=== PATIENT | female | born 1935 | race African-American/Black ===

== ENCOUNTER → 2016-08-18 | Outpatient (CLI) | payer OTHER ==
[2014-12-22 11:00] VITALS: BP 121/57
[~2016-08-18] MED LIST: ALPR0.5T PO; ASPI-482 PO; ASPI-612 PO; CARV12.52 PO; CARV6.252 PO; ESCITALOPRAM OX20 MG PO; FERR-26 PO; FURO-68 PO; FURO40TA4 PO; LEXAPRO10 MG PO; LOSA50TA6 PO; METO10TA81 PO; PANT40TA5 PO; PHEN95TA13 PO; POLY17PO29 PO; POTA20PA PO; POTA20TA12 PO; PSYL1PAC7 PO; SIMV20TA PO; SIMV20TA3 PO; TRAM1TAB4 PO; VIT1TABL71 PO
--- NOTE | 2016-08-18 11:15 | RAD ---
Abdominal ultrasound 08/18/2016 Indication: Abdominal pain. Excessive gas. Comparison study: None. Discussion: Ultrasound evaluation of the abdomen was performed. Static images were submitted to PACS. The pancreas is poorly visualized. Visualized portions of the pancreas are unremarkable. Visualized portions of the aorta and IVC are grossly unremarkable. Liver is normal in size measuring 12 cm longitudinally. No focal hepatic lesions are seen. Liver appears mildly diffusely echogenic likely reflecting some degree of hepatic steatosis. No evidence of intrahepatic biliary dilatation is seen. Shadowing stones are seen in the dependent portion of the gallbladder neck. Common bile duct is nondilated measuring 4 mm. No gallbladder wall thickening is identified. No pericholecystic fluid is seen. Right kidney is atrophic in appearance measuring 8.2 cm in length. Renal cortical thinning is noted. Right kidney is otherwise grossly unremarkable. Spleen is poorly visualized measures approximately 8 cm in length. There is a 1.2 cm cyst in the lateral aspect of the left kidney. Left kidney is otherwise normal in appearance measuring 10 cm in length. Impression: 1.Cholelithiasis without evidence of acute cholecystitis. 2. Probable hepatic steatosis. 3.Atrophic appearance of the right kidney.
== END | disposition home or self-care (01) ==
LOC: US 10:23
PROVIDERS: ATTEND Internal Medicine
DX: R10.84 Generalized abdominal pain (principal); R14.0 Abdominal distension (gaseous)
CPT/HCPCS: 76700

== ENCOUNTER → 2016-12-24 | Outpatient (CLI) | payer OTHER ==
[2016-10-29 15:00] VITALS: BP 112/51
[~2016-12-24] MED LIST changes: +HYDR-2758 PO; +HYDR-971 PO; +VENL75CA6 PO
--- NOTE | 2016-12-24 12:58 | RAD ---
Chest radiograph Two Views 12/24/2016 Clinical indication: Shortness of breath Comparison: Chest x-ray 12/21/2014 Findings: Prior median sternotomy and CABG. Cardiac and mediastinal silhouettes are within normal limits. There is stable mild scarring in the left lung base. No pleural effusion, pneumothorax or focal consolidation. There is multilevel thoracic spondylosis. Impression: Scattered areas of pleural-parenchymal scarring with no acute cardiopulmonary abnormality.
== END | disposition home or self-care (01) ==
LOC: RAD 10:42
PROVIDERS: ATTEND Nurse Practitioner Adult Health
DX: M47.894 Other spondylosis, thoracic region (principal); J98.4 Other disorders of lung
CPT/HCPCS: 71020

== ENCOUNTER 2016-12-25 15:44 | Inpatient (IN) | payer OTHER ==
[~2016-12-25] VITALS: Ht 170.2 cm; Wt 72.1 kg
[2016-12-25] MEDS ORDERED: IV NORMAL SALINE 1000ML BAG 1,000 ML IV SCH (16:09)
[2016-12-25 16:19] LABS: BASO # 0.1 x10^3/uL (0.0-0.2); BASO % 0 % (0-3); EOS % 0 % (0-3); HEMATOCRIT 40.4 % (36.0-47.0); HEMOGLOBIN 12.8 g/dL (12.0-15.5); LYMPH # 2.3 x10^3/uL (1.0-4.8); LYMPH % 15 % (24-48); MEAN CORPUSCULAR HEMOGLOBIN 29 pg (25-35); MEAN CORPUSCULAR HGB CONC 32 g/dL (31-37); MEAN CORPUSCULAR VOLUME 92 fL (79-100); MONO % 7 % (0-9); NEUT % 77 % (31-73); PLATELET COUNT 555 x10^3/uL (140-400); RED CELL DISTRIBUTION WIDTH 14.4 % (11.5-14.5); WHITE BLOOD COUNT 15.1 x10^3/uL (4.0-11.0)
[2016-12-25 16:32] LABS: CREATININE 3.1 mg/dL (0.6-1.0); GFR 17.4; POTASSIUM 3.2 mmol/L (3.5-5.1)
[2016-12-25 16:40] LABS: % EOS 1 % (0-5); ALBUMIN 3.4 g/dL (3.4-5.0); NUCLEATED RBC 2; PLT ESTIMATE INCREASED (ADEQUATE); TOTAL BILIRUBIN 0.3 mg/dL (0.2-1.0); TOTAL PROTEIN 6.8 g/dL (6.4-8.2)
[2016-12-25 16:42] LABS: ANISOCYTOSIS SLIGHT; POIKILOCYTOSIS SLIGHT; POLYCHROMASIA PRESENT
[2016-12-25 16:43] LABS: HOWELL-JOLLY BODIES PRESENT; OVALOCYTES PRESENT
[2016-12-25 16:44] LABS: SCHISTOCYTES OCC
--- NOTE | 2016-12-25 16:45 | PHYS DOC ---
Past Medical History Past Medical History: Cancer, CHF, Depression, DVT, Hypertension, [place], UTI Additional Past Medical Histor: PANCREATIC CANCER, METS TO LUNGS Past Surgical History: Coronary Bypass Surgery, Hysterectomy Additional Past Surgical Histo: left BKA Alcohol Use: None Drug Use: None Adult General Chief Complaint Chief Complaint: SHORTNESS OF BREATH HPI HPI 81-year-old female with a history of pancreatic cancer recent chemotherapy on December 09 now presents to the emergency department referred from her oncologist office after diagnosis of pulmonary embolus him. Patient had tachypnea and since she is at high risk for clot but has renal insufficiency, VQ scan was done orchestrated by oncology. This result was high probability for PE so patient was referred to the emergency department by Dr. Randle for evaluation treatment and admission. They felt that given the patient's immune compromised status and the fact that she was symptomatic from the PE inpatient treatment and anticoagulation was appropriate. Patient has no pain currently and states she only feels mildly short of breath with exertion and ambulation. No productive cough or fever. Denies chest pain. Review of Systems Review of Systems Constitutional: Denies fever or chills [] Eyes: Denies change in visual acuity, redness, or eye pain [] HENT: Denies nasal congestion or sore throat [] Respiratory: Denies cough or shortness of breath [] Cardiovascular: No additional information not addressed in HPI [] GI: Denies abdominal pain, nausea, vomiting, bloody stools or diarrhea [] : Denies dysuria or hematuria [] Musculoskeletal: Denies back pain or joint pain [] Integument: Denies rash or skin lesions [] Neurologic: Denies headache, focal weakness or sensory changes [] Endocrine: Denies polyuria or polydipsia [] All other systems were reviewed and found to be within normal limits, except as documented in this note. Current Medications Current Medications Current Medications Medications (Trade) Dose Ordered Sig/Zoya Start Time Stop Time Status Last Admin Dose Admin Sodium Chloride 1,000 ml @ 125 mls/hr Q8H 12/25/16 17:18 12/26/16 17:17 Allergies Allergies Allergies Coded Allergies Type Severity Reaction Last Updated Verified Penicillins Allergy Intermediate ITCH 09/04/16 Yes Physical Exam Physical Exam Older female chronically weak appearing no acute distress alert communicative cooperative and appropriate cheerful appearing supple neck clear lungs regular rate and rhythm hemodynamically stable. No respiratory distress and a nonfocal neurologic exam. Remainder of exam is benign Constitutional: Well developed, well nourished, no acute distress, non-toxic appearance. [] HENT: Normocephalic, atraumatic, bilateral external ears normal, oropharynx moist, no oral exudates, nose normal. [] Eyes: PERRLA, EOMI, conjunctiva normal, no discharge. [] Neck: Normal range of motion, no tenderness, supple, no stridor. [] Cardiovascular:Heart rate regular rhythm, no murmur [] Lungs & Thorax: Bilateral breath sounds unremarkable except patient with very mild tachypnea. Respiratory rate between 16 and 20 on M.D. exam Abdomen: Bowel sounds normal, soft, no tenderness, no masses, no pulsatile masses. [] Skin: Warm, dry, no erythema, no rash. [] Back: No tenderness, no CVA tenderness. [] Extremities: No tenderness, no cyanosis, no clubbing, ROM intact, no edema. [] Neurologic: Alert and oriented X 3, normal motor function, normal sensory function, no focal deficits noted. [] Psychologic: Affect normal, judgement normal, mood normal. [] Current Patient Data Vital Signs Vital Signs Date Time Temp Pulse Resp B/P (MAP) Pulse Ox O2 Delivery O2 Flow Rate FiO2 12/25/16 16:59 88 18 129/64 (85) 97 Nasal Cannula 2.0 12/25/16 15:44 97.6 97.6 Lab Values Laboratory Tests Test 12/25/16 16:10 12/25/16 16:53 White Blood Count 15.1 x10^3/uL (4.0-11.0) H Red Blood Count 4.40 x10^6/uL (3.50-5.40) Hemoglobin 12.8 g/dL (12.0-15.5) Hematocrit 40.4 % (36.0-47.0) Mean Corpuscular Volume 92 fL (79-100) Mean Corpuscular Hemoglobin 29 pg (25-35) Mean Corpuscular Hemoglobin Concent 32 g/dL (31-37) Red Cell Distribution Width 14.4 % (11.5-14.5) Platelet Count 555 x10^3/uL (140-400) H Neutrophils (%) (Auto) 77 % (31-73) H Lymphocytes (%) (Auto) 15 % (24-48) L Monocytes (%) (Auto) 7 % (0-9) Eosinophils (%) (Auto) 0 % (0-3) Basophils (%) (Auto) 0 % (0-3) Neutrophils # (Auto) 11.6 x10^3uL (1.8-7.7) H Lymphocytes # (Auto) 2.3 x10^3/uL (1.0-4.8) Monocytes # (Auto) 1.1 x10^3/uL (0.0-1.1) Eosinophils # (Auto) 0.0 x10^3/uL (0.0-0.7) Basophils # (Auto) 0.1 x10^3/uL (0.0-0.2) Segmented Neutrophils % 72 % (35-66) H Band Neutrophils % 1 % (0-9) Lymphocytes % 12 % (24-48) L Atypical Lymphocytes % (Manual) 1 % (0-0) H Monocytes % 4 % (0-10) Eosinophils % 1 % (0-5) Metamyelocytes % 2 % (0-0) H Myelocytes % 7 % (0-0) H Nucleated Red Blood Cells 2 Platelet Estimate Increased (ADEQUATE) Large Platelets Present Polychromasia Present Poikilocytosis Slight Anisocytosis Slight Macrocytosis Slight Ovalocytes Present [place] Bodies Present Schistocytes Occ Sodium Level 138 mmol/L (136-145) Potassium Level 3.2 mmol/L (3.5-5.1) L Chloride Level 94 mmol/L (98-107) L Carbon Dioxide Level 29 mmol/L (21-32) Anion Gap 15 (6-14) H Blood Urea Nitrogen 30 mg/dL (7-20) H Creatinine 3.1 mg/dL (0.6-1.0) H Estimated GFR (Cockcroft-Gault) 17.4 BUN/Creatinine Ratio 10 (6-20) Glucose Level 223 mg/dL (70-99) H Calcium Level 7.0 mg/dL (8.5-10.1) L Total Bilirubin 0.3 mg/dL (0.2-1.0) Aspartate Amino Transferase (AST) 33 U/L (15-37) Alanine Aminotransferase (ALT) 44 U/L (14-59) Alkaline Phosphatase 358 U/L (46-116) H Troponin I Quantitative 0.097 ng/mL (0.000-0.055) Total Protein 6.8 g/dL (6.4-8.2) Albumin 3.4 g/dL (3.4-5.0) Albumin/Globulin Ratio 1.0 (1.0-1.7) Thyroid Stimulating Hormone (TSH) 1.878 uIU/mL (0.358-3.74) Prothrombin Time 15.3 SEC (11.7-14.0) H Prothrombin Time INR 1.3 (0.8-1.1) H PTT 24 SEC (24-38) Laboratory Tests 12/25/16 16:10 Laboratory Tests 12/25/16 16:10 EKG EKG EKG with normal sinus rhythm at 88 normal axis no STEMI interpreted by me[] Radiology/Procedures Radiology/Procedures Chest x-ray no acute disease interpreted by me[] Course & Med Decision Making Course & Med Decision Making Pertinent Labs and Imaging studies reviewed. (See chart for details) Cancer patient with a PE diagnosed a VQ scan. White blood cell count 15.1 however patient is afebrile without productive cough. BUN/creatinine 30 and 3.1. Troponin 0.097 however patient has no clinical evidence of acute coronary syndromes this is felt to be secondary to her renal insufficiency. Case discussed with Dr. Holly pace hospitalist on-call has where history and findings and agrees with inpatient omission his service. He will address anticoagulation. Patient stable on reevaluation prior to admission to the floor. Dragon Disclaimer Dragon Disclaimer This electronic medical record was generated, in whole or in part, using a voice recognition dictation system. Departure Departure Impression: Primary Impression: Pulmonary embolism Additional Impressions: Leukocytosis Renal insufficiency Elevated troponin Disposition: ADMITTED INPATIENT Admitting Physician: Holly Pace Condition: STABLE Referrals: TARA DON Jr, MD (PCP) Problem Qualifiers LAUREN HERNANDEZ MD Dec 25, 2016 16:45
[2016-12-25 17:11] LABS: INR 1.3 (0.8-1.1); PROTHROMBIN TIME PATIENT 15.3 SEC (11.7-14.0)
--- NOTE | 2016-12-25 17:29 | RAD ---
Portable chest, 12/25/2016: History: Shortness of breath Comparison is made to a study from 12/24/2016. There has been a previous median sternotomy. The heart size and pulmonary vascularity are normal. There is obscuration of the left lateral costophrenic angle compatible with minimal atelectasis/infiltrate. There may be a component of scarring. A calcified granuloma is present in the left. The right lung is clear. IMPRESSION: Probable minimal atelectasis/infiltrate in the lateral left base.
[2016-12-25] MEDS ORDERED: ONDANSETRON PF 4 MG/2 ML VIAL. IV PRN (17:30)
[2016-12-25] MEDS ORDERED: DEXTROSE 50% 25 GM / 50ML DISP.SYRIN. IV PRN (18:45)
[2016-12-25] MEDS ORDERED: POTASSIUM CHLORIDE 20 MEQ TABLET.ER. PO ONE (18:45)
[2016-12-25] MEDS ORDERED: HEPARIN for IV BOLUS 10,000 UNIT/10 ML VIAL. IV PRN ×2 (18:45)
[2016-12-25] MEDS ORDERED: POLYETHYLENE GLYCOL 3350 17 GM PACKET. PO PRN (18:45)
--- NOTE | 2016-12-25 18:47 | PDOC1 ---
History and Physical Date of Admission Date of Admission DATE: 12/25/16 TIME: 18:39 Identification/Chief Complaint Chief Complaint shortness of breath Problems: Source Source: Caregiver, Chart review, Patient History of Present Illness History of Present Illness pt was seen in Oncology clinic today by midlevel for Dr. Randle Pt has pancreatic cancer, started chemo last month, and is due for next round soon, and has been doing well today, worsening shortness of breath, pt reports just today, but her family reports worsened over the last few days. No worsening of pain, no swelling, no fever or chills, no fall or event VQ was done as outpatient before sent to ER, LLL filling defect, CXR done the day before was reported as clear, Past Medical History Cardiovascular: CAD, HTN GI: Constipation Heme/Onc: Cancer Hepatobiliary: No pertinent hx Psych: No pertinent hx Past Surgical History Past Surgical History: CABG, Other Family History Family History: Diabetes, Other Social History Smoke: No ALCOHOL: none Drugs: None Current Medications Current Medications Current Medications Sodium Chloride 1,000 ml @ 999 mls/hr Q1H1M IV Last administered on t 18:03; Start 12/25/16 at 16:09 Ondansetron HCl (Zofran) 4 mg PRN Q8HRS PRN IV NAUSEA/VOMITING; Start at 17:30; Stop 12/26/16 at 17:29 Sodium Chloride 1,000 ml @ 125 mls/hr Q8H IV ; Start 12/25/16 at 17:18; Stop 12/26/16 at 17:17 Active Scripts Active Hydrocodone-Apap 5-325 (Hydrocodone Bit/Acetaminophen) 1 Each Tablet 1-2 Tab PO PRN Q4HRS PRN Pierce 5-325 Tablet (Acetaminophen/Hydrocodone Bitart) 1 Each Tablet 1-2 Tab PO Q4-6HRS Reported Hydrocodone-Apap 5-325 (Hydrocodone Bit/Acetaminophen) 1 Each Tablet 2 Tab PO PRN Q4HRS PRN Venlafaxine Hcl Er (Venlafaxine Hcl) 75 Mg Cap.er.24h 1 Cap PO DAILY Lasix (Furosemide) 40 Mg Tablet 1 Tab PO DAILY Xanax (Alprazolam) 0.5 Mg Tablet 0.25 Mg PO HS PRN PRN Tramadol-Acetaminophn 37.5-325 (Tramadol Hcl/Acetaminophen) 1 Each Tablet 1 Tab PO Q6HRS Reglan (Metoclopramide Hcl) 10 Mg Tablet 5 Mg PO BIDACBL Pantoprazole Sodium 40 Mg Tablet.dr 40 Tab PO DAILY Carvedilol 12.5 Mg Tablet 12.5 Mg PO BIDWMEALS Losartan Potassium 50 Mg Tablet 100 Mg PO DAILY Miralax (Polyethylene Glycol 3350) 17 Gm Powd.pack 17 Gm PO PRN DAILY Aspir 81 (Aspirin) 81 Mg Tablet.dr 81 Mg PO DAILY Klor-Con (Potassium Chloride) 20 Meq Packet 10 Meq PO DAILY Zocor (Simvastatin) 20 Mg Tablet 20 Mg PO DAILY Allergies Allergies: Coded Allergies: Penicillins (Verified Allergy, Intermediate, ITCH, 09/04/16) ROS General: No: Chills, Night Sweats, Fatigue, Malaise, Appetite, Other PSYCHOLOGICAL ROS: YES: Sleep disturbances, No: Anxiety, Behavioral Disorder, Concentration difficultie, Decreased libido , Depression, Disorientation, Hallucinations, Hostility, Irritablity, Memory difficulties, Mood Swings, Obsessive thoughts, Suicidal ideation, Other Eyes: No Blurry vision, No Decreased vision, No Double vision, No Dry eyes, No Excessive tearing, No Eye Pain, No Itchy Eyes, No Loss of vision, No Photophobia , No Scotomata, No Uses contacts, No Uses glasses, No Other HEENT: No: Heacaches, Visual Changes, Hearing change, Nasal congestion, Nasal discharge, Oral lesions, Sinus pain, Sore Throat, Epistaxis, Sneezing, Snoring, Tinnitus, Vertigo, Vocal changes, Other ENDOCRINE: No: Breast Changes, Galactorrhea, Hair Pattern Changes, Hot Flashes , Malaise/lethargy, Mood Swings, Palpitations, Polydipsia/polyuria, Skin Changes , Temperature Intolerance, Unexpected Weight Changes, Other Respiratory: YES: Shortness of breath, SOB with excertion, No: Cough, Hemoptysis, Orthopnea, Pleuritic Pain, Sputum Changes, Stridor, Tachypnea, Wheezing, Other Cardiovascular: No Chest Pain, No Palpitations, No Orthopnea, No Paroxysmal Noc. Dyspnea, No Edema, No Lt Headedness, No Other Gastrointestinal: No Nausea, No Vomiting, No Abdominal Pain, No Diarrhea, No Constipation, No Melena, No Hematochezia, No Other Genitourinary: No Dysuria, No Frequency, No Incontinence, No Hematuria, No Retention, No Discharge, No Urgency, No Pain, No Flank Pain, No Other, No , No , No , No , No , No , No Musculoskeletal: Yes Joint Stiffness, No Gait Disturbance, No Joint Pain, No Joint Swelling, No Muscle Pain, No Muscular Weakness, No Pain In:, No Swelling In:, No Other Neurological: No Behavorial Changes, No Bowel/Bladder ControlChng, No Confusion , No Dizziness, No Gait Disturbance, No Headaches, No Impaired Coord/balance, No Memory Loss, No Numbness/Tingling, No Seizures, No Speech Problems, No Tremors, No Visual Changes, No Weakness, No Other Skin: Yes Dry Skin, No Eczema, No Hair Changes, No Lumps, No Mole Changes, No Mottling, No Nail Changes, No Pruritus, No Rash, No Skin Lesion Changes, No Other, No Acne Physical Exam General: Alert, Cooperative, mild distress HEENT: PERRLA, EOMI Lungs: Normal air movement Heart: no gallops, no murmurs Abdomen: Normal bowel sounds, Soft Rectal Exam: not examined Extremities: No clubbing, No cyanosis Skin: No breakdown Neuro: Normal speech, Normal tone, Cranial nerves 3-12 NL Psych/Mental Status: Mood NL Vitals Vitals Vital Signs Date Time Temp Pulse Resp B/P (MAP) Pulse Ox O2 Delivery O2 Flow Rate FiO2 12/25/16 15:44 97.6 90 18 128/62 (84) 93 Room Air 97.6 Labs Labs Laboratory Tests Test 12/25/16 16:10 12/25/16 16:53 White Blood Count 15.1 x10^3/uL (4.0-11.0) Red Blood Count 4.40 x10^6/uL (3.50-5.40) Hemoglobin 12.8 g/dL (12.0-15.5) Hematocrit 40.4 % (36.0-47.0) Mean Corpuscular Volume 92 fL (79-100) Mean Corpuscular Hemoglobin 29 pg (25-35) Mean Corpuscular Hemoglobin Concent 32 g/dL (31-37) Red Cell Distribution Width 14.4 % (11.5-14.5) Platelet Count 555 x10^3/uL (140-400) Neutrophils (%) (Auto) 77 % (31-73) Lymphocytes (%) (Auto) 15 % (24-48) Monocytes (%) (Auto) 7 % (0-9) Eosinophils (%) (Auto) 0 % (0-3) Basophils (%) (Auto) 0 % (0-3) Neutrophils # (Auto) 11.6 x10^3uL (1.8-7.7) Lymphocytes # (Auto) 2.3 x10^3/uL (1.0-4.8) Monocytes # (Auto) 1.1 x10^3/uL (0.0-1.1) Eosinophils # (Auto) 0.0 x10^3/uL (0.0-0.7) Basophils # (Auto) 0.1 x10^3/uL (0.0-0.2) Segmented Neutrophils % 72 % (35-66) Band Neutrophils % 1 % (0-9) Lymphocytes % 12 % (24-48) Atypical Lymphocytes % (Manual) 1 % (0-0) Monocytes % 4 % (0-10) Eosinophils % 1 % (0-5) Metamyelocytes % 2 % (0-0) Myelocytes % 7 % (0-0) Nucleated Red Blood Cells 2 Platelet Estimate Increased (ADEQUATE) Large Platelets Present Polychromasia Present Poikilocytosis Slight Anisocytosis Slight Macrocytosis Slight Ovalocytes Present [place] Bodies Present Schistocytes Occ Sodium Level 138 mmol/L (136-145) Potassium Level 3.2 mmol/L (3.5-5.1) Chloride Level 94 mmol/L (98-107) Carbon Dioxide Level 29 mmol/L (21-32) Anion Gap 15 (6-14) Blood Urea Nitrogen 30 mg/dL (7-20) Creatinine 3.1 mg/dL (0.6-1.0) Estimated GFR (Cockcroft-Gault) 17.4 BUN/Creatinine Ratio 10 (6-20) Glucose Level 223 mg/dL (70-99) Calcium Level 7.0 mg/dL (8.5-10.1) Total Bilirubin 0.3 mg/dL (0.2-1.0) Aspartate Amino Transf (AST/SGOT) 33 U/L (15-37) Alanine Aminotransferase (ALT/SGPT) 44 U/L (14-59) Alkaline Phosphatase 358 U/L (46-116) Troponin I Quantitative 0.097 ng/mL (0.000-0.055) Total Protein 6.8 g/dL (6.4-8.2) Albumin 3.4 g/dL (3.4-5.0) Albumin/Globulin Ratio 1.0 (1.0-1.7) Thyroid Stimulating Hormone (TSH) 1.878 uIU/mL (0.358-3.74) Prothrombin Time 15.3 SEC (11.7-14.0) Prothromb Time International Ratio 1.3 (0.8-1.1) Activated Partial Thromboplast Time 24 SEC (24-38) Laboratory Tests Test 12/25/16 16:10 12/25/16 16:53 White Blood Count 15.1 x10^3/uL (4.0-11.0) Red Blood Count 4.40 x10^6/uL (3.50-5.40) Hemoglobin 12.8 g/dL (12.0-15.5) Hematocrit 40.4 % (36.0-47.0) Mean Corpuscular Volume 92 fL (79-100) Mean Corpuscular Hemoglobin 29 pg (25-35) Mean Corpuscular Hemoglobin Concent 32 g/dL (31-37) Red Cell Distribution Width 14.4 % (11.5-14.5) Platelet Count 555 x10^3/uL (140-400) Neutrophils (%) (Auto) 77 % (31-73) Lymphocytes (%) (Auto) 15 % (24-48) Monocytes (%) (Auto) 7 % (0-9) Eosinophils (%) (Auto) 0 % (0-3) Basophils (%) (Auto) 0 % (0-3) Neutrophils # (Auto) 11.6 x10^3uL (1.8-7.7) Lymphocytes # (Auto) 2.3 x10^3/uL (1.0-4.8) Monocytes # (Auto) 1.1 x10^3/uL (0.0-1.1) Eosinophils # (Auto) 0.0 x10^3/uL (0.0-0.7) Basophils # (Auto) 0.1 x10^3/uL (0.0-0.2) Segmented Neutrophils % 72 % (35-66) Band Neutrophils % 1 % (0-9) Lymphocytes % 12 % (24-48) Atypical Lymphocytes % (Manual) 1 % (0-0) Monocytes % 4 % (0-10) Eosinophils % 1 % (0-5) Metamyelocytes % 2 % (0-0) Myelocytes % 7 % (0-0) Nucleated Red Blood Cells 2 Platelet Estimate Increased (ADEQUATE) Large Platelets Present Polychromasia Present Poikilocytosis Slight Anisocytosis Slight Macrocytosis Slight Ovalocytes Present [place] Bodies Present Schistocytes Occ Sodium Level 138 mmol/L (136-145) Potassium Level 3.2 mmol/L (3.5-5.1) Chloride Level 94 mmol/L (98-107) Carbon Dioxide Level 29 mmol/L (21-32) Anion Gap 15 (6-14) Blood Urea Nitrogen 30 mg/dL (7-20) Creatinine 3.1 mg/dL (0.6-1.0) Estimated GFR (Cockcroft-Gault) 17.4 BUN/Creatinine Ratio 10 (6-20) Glucose Level 223 mg/dL (70-99) Calcium Level 7.0 mg/dL (8.5-10.1) Total Bilirubin 0.3 mg/dL (0.2-1.0) Aspartate Amino Transf (AST/SGOT) 33 U/L (15-37) Alanine Aminotransferase (ALT/SGPT) 44 U/L (14-59) Alkaline Phosphatase 358 U/L (46-116) Troponin I Quantitative 0.097 ng/mL (0.000-0.055) Total Protein 6.8 g/dL (6.4-8.2) Albumin 3.4 g/dL (3.4-5.0) Albumin/Globulin Ratio 1.0 (1.0-1.7) Thyroid Stimulating Hormone (TSH) 1.878 uIU/mL (0.358-3.74) Prothrombin Time 15.3 SEC (11.7-14.0) Prothromb Time International Ratio 1.3 (0.8-1.1) Activated Partial Thromboplast Time 24 SEC (24-38) VTE Prophylaxis Ordered VTE Prophylaxis Devices: Yes VTE Pharmacological Prophylaxi: No Assessment/Plan Assessment/Plan PE from + VQ scan done as an outpatient start heparin gtt, Pt has CKD maybe 3 or 4 , hold ARB, hold NSAIDs, consult renal, renal dose meds, no lovenox, no contrast imaging, pancreatic cancer, Onc following Hx CAD, s/p CABG 5 years ago here. Then had post op DVT to left lower leg, and has BKA amputation to that leg - likely described at provoked at the time, but possible coagulopathy Heme consulted, nausea, poor PO intake, risk of malnutrition, consult hypokalemia leukocytosis, reactive, admit CATIA REED MD Dec 25, 2016 18:47
[2016-12-25] MEDS ORDERED: DOCUSATE SODIUM 100 MG CAPSULE. PO PRN (19:00)
[2016-12-25] MEDS ORDERED: WARFARIN 5 MG TABLET. PO ONE (19:00)
[2016-12-25] MEDS: HEPARIN 25,000UTS/500ML PREMIX 500 ML IV PRN (20:51)
[2016-12-25] MEDS: SIMVASTATIN 20 MG TABLET PO SCH (20:54)
[2016-12-25] MEDS: IV NORMAL SALINE 1000ML BAG 1,000 ML IV SCH (20:54)
[2016-12-25 21:13] LABS: BILIRUBIN,URINE NEGATIVE (NEG); GLUCOSE,URINE NEGATIVE (NEG); NITRITE,URINE NEGATIVE (NEG); PROTEIN,URINE NEGATIVE (NEG-TRACE); UROBILINOGEN,URINE 0.2 mg/dL (0.2 mg/dL)
[2016-12-25 21:17] LABS: BACTERIA,URINE 0 /HPF (0-FEW); RBC,URINE OCC /HPF (0-2); SQUAMOUS EPITHELIAL CELL,UR FEW /LPF
[2016-12-25 23:00] VITALS: BP 140/75
[2016-12-26] MEDS: ALPRAZolam 0.5 MG TABLET PO PRN ×2 (00:11→21:34)
[2016-12-26] MEDS: IV NORMAL SALINE 1000ML BAG 1,000 ML IV SCH (01:18)
[2016-12-26 03:19] VITALS: BP 129/72
[2016-12-26 04:42] LABS: BASO % 0 % (0-3); EOS % 0 % (0-3); HEMATOCRIT 33.8 % (36.0-47.0); HEMOGLOBIN 10.9 g/dL (12.0-15.5); LYMPH # 2.3 x10^3/uL (1.0-4.8); LYMPH % 15 % (24-48); MEAN CORPUSCULAR HEMOGLOBIN 30 pg (25-35); MEAN CORPUSCULAR HGB CONC 32 g/dL (31-37); MEAN CORPUSCULAR VOLUME 92 fL (79-100); MONO % 9 % (0-9); NEUT % 76 % (31-73); PLATELET COUNT 502 x10^3/uL (140-400); RED BLOOD COUNT 3.68 x10^6/uL (3.50-5.40); RED CELL DISTRIBUTION WIDTH 14.7 % (11.5-14.5); WHITE BLOOD COUNT 15.6 x10^3/uL (4.0-11.0)
[2016-12-26 05:00] LABS: INR 1.4 (0.8-1.1); PROTHROMBIN TIME PATIENT 16.1 SEC (11.7-14.0)
[2016-12-26 05:50] LABS: ALBUMIN 2.7 g/dL (3.4-5.0); CALCIUM 6.5 mg/dL (8.5-10.1); CREATININE 2.3 mg/dL (0.6-1.0); GFR 24.6; POTASSIUM 3.2 mmol/L (3.5-5.1); TOTAL BILIRUBIN 0.3 mg/dL (0.2-1.0); TOTAL PROTEIN 5.5 g/dL (6.4-8.2)
--- NOTE | 2016-12-26 06:45 | EKG ---
[facility] [address] [place] [address] Test Date: 2016-12-25 Test Time: 16:25:52 Pat Name: TRU BARBOUR Department: Room: 656 1 Gender: F Automotive Buyer: : 1935 Requested By: LAUREN HERNANDEZ Order Number: [id number] Reading MD: Juan A Santana MD Measurements Intervals [place] Rate: 88 P: 54 DC: 144 QRS: 22 QRSD: 76 T: 103 QT: 396 QTc: 483 Interpretive Statements SINUS RHYTHM CONSISTENT WITH ANTEROSEPTAL INFARCT-PROBABLY OLD NON-SPECIFIC ST/T CHANGES Electronically Signed On 12-29-2016 14:09:27 INTERNET MARKETING DIRECTOR by Juan A Santana MD
[2016-12-26 07:09] VITALS: BP 124/84
[2016-12-26] MEDS: PANTOPRAZOLE 40 MG TABLET.DR. PO SCH (08:31)
[2016-12-26] MEDS: POTASSIUM CHLORIDE 10 MEQ TABLET.ER. PO SCH (08:31)
[2016-12-26] MEDS: ASPIRIN ENTERIC COATED 81 MG TABLET.DR. PO SCH (08:32)
[2016-12-26] MEDS: METOCLOPRAMIDE 10 MG TABLET. PO SCH ×2 (08:32→11:34)
[2016-12-26] MEDS: VENLAFAXINE XR 37.5 MG CAP.ER.24H. PO SCH (08:32)
[2016-12-26] MEDS: FUROSEMIDE 40 MG TABLET. PO SCH (08:32)
[2016-12-26] MEDS: CARVEDILOL 12.5 MG TABLET. PO SCH ×2 (08:33→16:48)
[2016-12-26] MEDS: INSULIN ASPART 300 UNITS/3 ML INSULN.PEN SQ SCH ×3 (08:40→17:00)
--- NOTE | 2016-12-26 09:51 | PDOC ---
PROGRESS NOTES Chief Complaint Chief Complaint PE ASSESSMENT AND PLAN: 1. PE: + VQ scan done as an outpatient. currently on heparin gtt 2/2 advanced renal insufficiency. could switch to eliquis, renal dosing, vs coumadin on D/C 2. CKD4: avoid nephrotoxic meds. consult renal 3. Pancreatic CA: on weekly chemo. Onc following. high risk for VTE 4. CAD: s/p CABG 5 years ago 5. Hypokalemia: replete 6. Nausea, poor PO intake: prob 2/2 chemo given yesterday as well as primary malignancy. risk of malnutrition, consult 7. Leukocytosis: reactive,. monitor 8. troponin leak: 2/2 PE. d/w Dr Ambrocio History of Present Illness History of Present Illness has no appetite, but denies nausea. no abd pain, no SOB Vitals Vitals Vital Signs Date Time Temp Pulse Resp B/P (MAP) Pulse Ox O2 Delivery O2 Flow Rate FiO2 12/26/16 08:33 105 124/84 12/26/16 07:09 98.1 18 97 Nasal Cannula 3.0 98.1 Physical Exam General: Alert, Cooperative, mild distress Lungs: Clear Abdomen: Normal bowel sounds, Soft Extremities: No clubbing, No cyanosis Skin: No breakdown Labs LABS Laboratory Tests Test 12/25/16 16:10 12/25/16 16:53 12/25/16 17:55 12/25/16 21:00 White Blood Count 15.1 x10^3/uL (4.0-11.0) Red Blood Count 4.40 x10^6/uL (3.50-5.40) Hemoglobin 12.8 g/dL (12.0-15.5) Hematocrit 40.4 % (36.0-47.0) Mean Corpuscular Volume 92 fL (79-100) Mean Corpuscular Hemoglobin 29 pg (25-35) Mean Corpuscular Hemoglobin Concent 32 g/dL (31-37) Red Cell Distribution Width 14.4 % (11.5-14.5) Platelet Count 555 x10^3/uL (140-400) Neutrophils (%) (Auto) 77 % (31-73) Lymphocytes (%) (Auto) 15 % (24-48) Monocytes (%) (Auto) 7 % (0-9) Eosinophils (%) (Auto) 0 % (0-3) Basophils (%) (Auto) 0 % (0-3) Neutrophils # (Auto) 11.6 x10^3uL (1.8-7.7) Lymphocytes # (Auto) 2.3 x10^3/uL (1.0-4.8) Monocytes # (Auto) 1.1 x10^3/uL (0.0-1.1) Eosinophils # (Auto) 0.0 x10^3/uL (0.0-0.7) Basophils # (Auto) 0.1 x10^3/uL (0.0-0.2) Segmented Neutrophils % 72 % (35-66) Band Neutrophils % 1 % (0-9) Lymphocytes % 12 % (24-48) Atypical Lymphocytes % (Manual) 1 % (0-0) Monocytes % 4 % (0-10) Eosinophils % 1 % (0-5) Metamyelocytes % 2 % (0-0) Myelocytes % 7 % (0-0) Nucleated Red Blood Cells 2 Platelet Estimate Increased (ADEQUATE) Large Platelets Present Polychromasia Present Poikilocytosis Slight Anisocytosis Slight Macrocytosis Slight Ovalocytes Present [place] Bodies Present Schistocytes Occ Sodium Level 138 mmol/L (136-145) Potassium Level 3.2 mmol/L (3.5-5.1) Chloride Level 94 mmol/L (98-107) Carbon Dioxide Level 29 mmol/L (21-32) Anion Gap 15 (6-14) Blood Urea Nitrogen 30 mg/dL (7-20) Creatinine 3.1 mg/dL (0.6-1.0) Estimated GFR (Cockcroft-Gault) 17.4 BUN/Creatinine Ratio 10 (6-20) Glucose Level 223 mg/dL (70-99) Calcium Level 7.0 mg/dL (8.5-10.1) Total Bilirubin 0.3 mg/dL (0.2-1.0) Aspartate Amino Transf (AST/SGOT) 33 U/L (15-37) Alanine Aminotransferase (ALT/SGPT) 44 U/L (14-59) Alkaline Phosphatase 358 U/L (46-116) Troponin I Quantitative 0.097 ng/mL (0.000-0.055) Total Protein 6.8 g/dL (6.4-8.2) Albumin 3.4 g/dL (3.4-5.0) Albumin/Globulin Ratio 1.0 (1.0-1.7) Thyroid Stimulating Hormone (TSH) 1.878 uIU/mL (0.358-3.74) Prothrombin Time 15.3 SEC (11.7-14.0) Prothromb Time International Ratio 1.3 (0.8-1.1) Activated Partial Thromboplast Time 24 SEC (24-38) Lactic Acid Level 3.6 mmol/L (0.4-2.0) Urine Collection Type Unknown Urine Color Yellow Urine Clarity Clear Urine pH 6.0 Urine Specific [place] 1.010 Urine Protein Negative mg/dL (NEG-TRACE) Urine Glucose (UA) Negative mg/dL (NEG) Urine Ketones (Stick) Negative mg/dL (NEG) Urine Blood Negative (NEG) Urine Nitrite Negative (NEG) Urine Bilirubin Negative (NEG) Urine Urobilinogen Dipstick 0.2 mg/dL (0.2 mg/dL) Urine Leukocyte Esterase Negative (NEG) Urine RBC Occ /HPF (0-2) Urine WBC 1-4 /HPF (0-4) Urine Squamous Epithelial Cells Few /LPF Urine Transitional Epithelial Cells Occ /LPF Urine Renal Epithelial Cells Occ /LPF Urine Bacteria 0 /HPF (0-FEW) Urine Hyaline Casts Occasional /HPF Urine Mucus Slight /LPF Test 12/25/16 22:55 12/26/16 03:35 12/26/16 07:12 Troponin I Quantitative 0.092 ng/mL (0.000-0.055) 0.115 ng/mL (0.000-0.055) White Blood Count 15.6 x10^3/uL (4.0-11.0) Red Blood Count 3.68 x10^6/uL (3.50-5.40) Hemoglobin 10.9 g/dL (12.0-15.5) Hematocrit 33.8 % (36.0-47.0) Mean Corpuscular Volume 92 fL (79-100) Mean Corpuscular Hemoglobin 30 pg (25-35) Mean Corpuscular Hemoglobin Concent 32 g/dL (31-37) Red Cell Distribution Width 14.7 % (11.5-14.5) Platelet Count 502 x10^3/uL (140-400) Neutrophils (%) (Auto) 76 % (31-73) Lymphocytes (%) (Auto) 15 % (24-48) Monocytes (%) (Auto) 9 % (0-9) Eosinophils (%) (Auto) 0 % (0-3) Basophils (%) (Auto) 0 % (0-3) Neutrophils # (Auto) 11.9 x10^3uL (1.8-7.7) Lymphocytes # (Auto) 2.3 x10^3/uL (1.0-4.8) Monocytes # (Auto) 1.4 x10^3/uL (0.0-1.1) Eosinophils # (Auto) 0.0 x10^3/uL (0.0-0.7) Basophils # (Auto) 0.0 x10^3/uL (0.0-0.2) Prothrombin Time 16.1 SEC (11.7-14.0) Prothromb Time International Ratio 1.4 (0.8-1.1) Heparin Anti-Xa Act, Unfractionated 0.51 IU/mL (0.30-0.70) Sodium Level 144 mmol/L (136-145) Potassium Level 3.2 mmol/L (3.5-5.1) Chloride Level 101 mmol/L (98-107) Carbon Dioxide Level 32 mmol/L (21-32) Anion Gap 11 (6-14) Blood Urea Nitrogen 24 mg/dL (7-20) Creatinine 2.3 mg/dL (0.6-1.0) Estimated GFR (Cockcroft-Gault) 24.6 BUN/Creatinine Ratio 10 (6-20) Glucose Level 139 mg/dL (70-99) Calcium Level 6.5 mg/dL (8.5-10.1) Ionized Calcium 0.76 mmol/L (1.13-1.32) Total Bilirubin 0.3 mg/dL (0.2-1.0) Aspartate Amino Transf (AST/SGOT) 29 U/L (15-37) Alanine Aminotransferase (ALT/SGPT) 33 U/L (14-59) Alkaline Phosphatase 274 U/L (46-116) Total Protein 5.5 g/dL (6.4-8.2) Albumin 2.7 g/dL (3.4-5.0) Albumin/Globulin Ratio 1.0 (1.0-1.7) Glucose (Fingerstick) 165 mg/dL (70-99) INDY RONDON MD Dec 26, 2016 09:51
[2016-12-26] MEDS ORDERED: POTASSIUM CHLORIDE 20 MEQ TABLET.ER. PO ONE (10:00)
[2016-12-26] MEDS ORDERED: POTASSIUM CL 20MEQ-0.45% NACL 1,000 ML IV ONE (10:00)
[2016-12-26 10:44] VITALS: BP 103/67
--- NOTE | 2016-12-26 10:47 | CONS ---
DATE OF CONSULTATION: PULMONARY CONSULTATION ATTENDING PHYSICIAN: Dr. Pace. REASON FOR CONSULTATION: Pulmonary embolism. HISTORY OF PRESENT ILLNESS: The patient is an 81-year-old female who has a history of pancreatic cancer and has been undergoing chemo with Dr. Randle. She has history of tobacco use, but she quit in 2010. The patient is not on home oxygen. She also had an abnormal CT chest in October, where she had bilateral nodules, some of them were cavitating. She was brought into the hospital after she was seen by her oncologist mid level provider with shortness of breath, which came on rather suddenly. The patient was sent for a V/Q scan and it was consistent with high probability for pulmonary embolism as she had a mismatch defect in the left lower lobe. Her chest x-ray shows an elevated left hemidiaphragm. She has been hospitalized and currently on heparin and warfarin has been initiated. She denies any prior history of DVT or pulmonary embolism. Consultation requested for further evaluation and management. 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 PAST SURGICAL HISTORY: Coronary artery bypass surgery, hysterectomy and left BKA. ALLERGIES: PENICILLIN. MEDICATIONS: All reviewed as listed in the MRAD, including heparin and warfarin. REVIEW OF SYSTEMS: Twelve-point system was obtained. Pertinent positives discussed in my history of present illness, otherwise noncontributory. All systems that were negative were reviewed as well. SOCIAL HISTORY: She smoked for about 25-30 years before quitting in 2010. FAMILY HISTORY: Noncontributory to lungs. PHYSICAL EXAMINATION: GENERAL: She is awake, following commands. VITAL SIGNS: Pulse ox 97% on 3 liters. Afebrile. Blood pressure is stable. HEENT: Sclerae nonicteric. NECK: Supple. LUNGS: Diminished breath sounds, left base. CARDIOVASCULAR EXAMINATION: With a regular rate. ABDOMEN: Soft, obese. EXTREMITIES: With left BKA. LABORATORY DATA: Labs were reviewed. White cell count 15.6, hemoglobin 10.9 and platelets are 502,000. BUN is 24 and a creatinine of 2.3. Troponin is 0.09. Albumin 2.7. IMPRESSION: 1. Acute hypoxic respiratory failure secondary to left lower lobe pulmonary embolism. 2. Abnormal V/Q scan with mismatch defect in the left lower lobe, consistent with high probability for pulmonary embolism. 3. Pancreatic cancer with hypercoagulable state, contributing to pulmonary embolism. 4. Possible underlying chronic obstructive pulmonary disease. 5. Left below-knee amputation. 6. History of bilateral lung nodules, some of them were cavitating in October. We will follow up another CT chest. These are likely metastatic nodules. RECOMMENDATIONS: 1. Continue with current anticoagulation. 2. The patient would need lifelong anticoagulation until her cancer is resolved. 3. Continue to wean oxygen. 4. Obtain venous Dopplers of lower extremity on the right and also of the left thigh. 5. Follow Oncology recommendations. 6. CT chest without contrast to follow up on the lung nodules. Discussed with the patient and her son. FELIPA DOWNING MD DR: GERALDO/sue JOB#: [id number] / [id number]
--- NOTE | 2016-12-26 12:12 | RAD ---
CT chest without contrast 12/26/2016 Clinical indication: Follow-up lung nodule. Comparison: CT chest 10/26/2016. Technique: Multiple CT images of the chest were obtained without contrast according to standard protocol. PQRS Compliance Statement: One or more of the following individualized dose reduction techniques were utilized for this examination: 1. Automated exposure control 2. Adjustment of the mA and/or kV according to patient size 3. Use of iterative reconstruction technique Findings: Chest: Prior median sternotomy and CABG. Heart size is normal without significant pericardial effusion. The thoracic aorta is normal in caliber with moderate scattered calcified atheromatous disease. There are punctate foci of gas along the proximal main pulmonary artery series 2/image 26. No axillary or obvious hilar lymphadenopathy, though evaluation is limited in the absence of intravenous contrast. Interval decrease in lower right paratracheal lymph node measuring 1.0 cm series 2/image 18, previously 1.2 cm. The central airways are patent. There is no significant change in numerous multifocal bilateral ill-defined noncalcified pulmonary nodules, some of which demonstrate central cavitation. Predominantly cavitary lesion in the right upper lobe measures 1.0 cm series 2/image 13, previously 1.0 cm. Unchanged irregular subpleural noncalcified nodules. Hypnotherapist subpleural nodule in the left lower lobe measures 1.5 cm series 2/image 26, previously 1.5 cm. No pleural effusion or pneumothorax. Development of patchy sclerosis T3, T6 and T10 vertebral bodies with associated vertebral body height loss There is a high density structure within the lumen of the lower esophagus, likely medication. Impression: 1. No significant change in numerous small bilateral noncalcified pulmonary nodules, many demonstrate internal cavitation. Given known history of pancreatic carcinoma, findings may represent pulmonary metastatic disease, concomitant multifocal atypical infection or septic emboli cannot be definitively excluded. 2. Development of patchy sclerosis in thoracic spine concerning for new thoracic metastatic disease. 3. Slight improvement in mildly enlarged mediastinal lymph node, indeterminate.
--- NOTE | 2016-12-26 12:19 | PDOC2 ---
CONSULT Date of Consult Date of Consult DATE: 12/26/16 TIME: 12:11 Reason for Consult Reason for Consult: CASSIDY Referring Physician Referring Physician: BRIANNA Identification/Chief Complaint Chief Complaint SOB Problems: Source Source: Chart review, Patient History of Present Illness Reason for Visit: THIS IS AN 81 YR OLD ADMITTED WITH SOB. SHE IS NOTED TO HAVE A PE AND POSSIBLE INFILTRATE. SHE IS ALSO NOTED TO HAVE A CR OF 3.1. SHE HAS CKD WITH BASELINE CR OF ABOUT 2.0. HX NOTABLE FOR PANCREATIC CANCER FOR WHICH SHE HAS HAD CHEMOTHERAPY OF LATE. NO OTHER HX NOTED. SHE ALSO HAS LEUCOCYTOSIS AND MILD HYPOKALEMIA. NO NEPHROTOXINS NOTED. APPETITE HAS BEEN POOR Past Medical History Cardiovascular: CAD, HTN GI: Constipation Heme/Onc: Cancer Hepatobiliary: No pertinent hx Psych: No pertinent hx Renal/: Chronic renal insuff Past Surgical History Past Surgical History: CABG, Other Family History Family History: Diabetes, Other Social History No ALCOHOL: none Drugs: None Lives: with Family Current Problem List Problem List Problems Medical Problems: (1) Elevated troponin Status: Acute (2) Leukocytosis Status: Acute Current Medications Current Medications Current Medications Sodium Chloride 1,000 ml @ 999 mls/hr Q1H1M IV Last administered on 18:03; Start 12/25/16 at 16:09; Stop 12/25/16 at 23:50; Status DC Ondansetron HCl (Zofran) 4 mg PRN Q8HRS PRN IV NAUSEA/VOMITING; Start at 17:30; Stop 12/26/16 at 17:29 Sodium Chloride 1,000 ml @ 125 mls/hr Q8H IV Last administered on 12/25/16 20:54; Start 12/25/16 at 17:18; Stop 12/26/16 at 09:51; Status DC Heparin Sodium/ Dextrose 500 ml @ 0 mls/hr CONT PRN IV SEE I/O RECORD Last administered on 12/25/16 20:51; Start 12/25/16 at 18:45 Heparin Sodium (Porcine) (Heparin Sodium) 2,150 unit PRN Q6HRS PRN IV FOR UFH LEVEL LESS THAN 0.2; Start 12/25/16 at 18:45 Heparin Sodium (Porcine) (Heparin Sodium) 1,100 unit PRN Q6HRS PRN IV FOR UFH LEVEL 0.2 - 0.29; Start 12/25/16 at 18:45 Warfarin Sodium (Coumadin Per Pharmacy) 1 each PRN DAILY PRN MC PER PROTOCOL Last administered on 12/26/16 11:01; Start 12/25/16 at 18:45 Potassium Chloride (Klor-Con) 40 meq 1X ONCE PO Last administered on 19:24; Start 12/25/16 at 18:45; Stop 12/25/16 at 18:46; Status DC Alprazolam (Xanax) 0.25 mg Q8HRS PRN PO ANXIETY Last administered on 00:11; Start 12/25/16 at 18:45 Aspirin (Ecotrin) 81 mg DAILY PO Last administered on 12/26/16 08:32; Start 12/26/16 at 09:00 Carvedilol (Coreg) 12.5 mg BIDWMEALS PO Last administered on 12/26/16 08:33; Start 12/26/16 at 08:00 Furosemide (Lasix) 40 mg DAILY PO Last administered on 12/26/16 08:32; Start 12/26/16 at 09:00 Acetaminophen/ Hydrocodone Bitart (Lortab 5/325) 2 tab PRN Q4HRS PRN PO PAIN; Start 12/25/16 at 18:45 Metoclopramide HCl (Reglan) 5 mg BIDACBL PO Last administered on 12/26/16 11: 34; Start 12/26/16 at 07:30 Pantoprazole Sodium (Protonix) 40 mg DAILYAC PO Last administered on 08:31; Start 12/26/16 at 07:30 Polyethylene Glycol (miraLAX PACKET) 17 gm PRN DAILY PRN PO CONSTIPATION; Start 12/25/16 at 18:45 Simvastatin (Zocor) 20 mg QHS PO Last administered on 12/25/16 20:54; Start 12/25/16 at 21:00 Potassium Chloride (Klor-Con) 10 meq DAILYWBKFT PO Last administered on 08:31; Start 12/26/16 at 08:00 Venlafaxine HCl (Effexor Xr) 75 mg DAILY PO Last administered on 12/26/16 08: 32; Start 12/26/16 at 09:00 Warfarin Sodium (Coumadin) 5 mg 1X WARF ONCE PO Last administered on 19:25; Start 12/25/16 at 19:00; Stop 12/25/16 at 19:01; Status DC Insulin Aspart (NovoLOG) 0-7 UNITS TIDWMEALS SQ Last administered on 08:40; Start 12/26/16 at 08:00 Dextrose (Dextrose 50%-Water Syringe) 12.5 gm PRN Q15MIN PRN IV SEE COMMENTS; Start 12/25/16 at 18:45 Docusate Sodium (Colace) 100 mg PRN DAILY PRN PO CONSTIPATION; Start 12/25/16 at 19:00 Potassium Chloride (Klor-Con) 40 meq 1X ONCE PO Last administered on 11:33; Start 12/26/16 at 10:00; Stop 12/26/16 at 10:01; Status DC Potassium Chloride/Sodium Chloride 1,000 ml @ 75 mls/hr 1X ONCE IV Last administered on 12/26/16 11:33; Start 12/26/16 at 10:00; Stop 12/26/16 at 23 :19 Warfarin Sodium (Coumadin) 5 mg 1X WARF ONCE PO ; Start 12/26/16 at 16:00; Stop 12/26/16 at 16:01 Active Scripts Active Hydrocodone-Apap 5-325 (Hydrocodone Bit/Acetaminophen) 1 Each Tablet 1-2 Tab PO PRN Q4HRS PRN [place] 5-325 Tablet (Acetaminophen/Hydrocodone Bitart) 1 Each Tablet 1-2 Tab PO Q4-6HRS Reported Hydrocodone-Apap 5-325 (Hydrocodone Bit/Acetaminophen) 1 Each Tablet 2 Tab PO PRN Q4HRS PRN Venlafaxine Hcl Er (Venlafaxine Hcl) 75 Mg Cap.er.24h 1 Cap PO DAILY Lasix (Furosemide) 40 Mg Tablet 1 Tab PO DAILY Xanax (Alprazolam) 0.5 Mg Tablet 0.25 Mg PO HS PRN PRN Tramadol-Acetaminophn 37.5-325 (Tramadol Hcl/Acetaminophen) 1 Each Tablet 1 Tab PO Q6HRS Reglan (Metoclopramide Hcl) 10 Mg Tablet 5 Mg PO BIDACBL Pantoprazole Sodium 40 Mg Tablet.dr 40 Tab PO DAILY Carvedilol 12.5 Mg Tablet 12.5 Mg PO BIDWMEALS Losartan Potassium 50 Mg Tablet 100 Mg PO DAILY Miralax (Polyethylene Glycol 3350) 17 Gm Powd.pack 17 Gm PO PRN DAILY Aspir 81 (Aspirin) 81 Mg Tablet.dr 81 Mg PO DAILY Klor-Con (Potassium Chloride) 20 Meq Packet 10 Meq PO DAILY Zocor (Simvastatin) 20 Mg Tablet 20 Mg PO DAILY Allergies Allergies: Coded Allergies: Penicillins (Verified Allergy, Intermediate, ITCH, 09/04/16) ROS General: YES: Fatigue, Malaise, Appetite PSYCHOLOGICAL ROS: YES: Anxiety, Depression Eyes: Yes Decreased vision HEENT: YES: Heacaches, Nasal congestion Respiratory: YES: Cough, Orthopnea, Shortness of breath Cardiovascular: yes Orthopnea Gastrointestinal: Yes Constipation Genitourinary: YES Other (NOCTURIA) Musculoskeletal: Yes Muscular Weakness Neurological: Yes Weakness Skin: Yes Dry Skin Physical Exam General: Alert, Cooperative HEENT: Atraumatic, PERRLA, EOMI, Mucous membr. moist/pink Lungs: Other (DECREASED AT BASES) Heart: Regular rate, Normal S1, Normal S2 Abdomen: Normal bowel sounds, No tenderness, No hepatosplenomegaly Extremities: No clubbing, No cyanosis Skin: No breakdown Neuro: Normal speech, Cranial nerves 3-12 NL Psych/Mental Status: Mental status NL, Mood NL MUSCULOSKELETAL: Other (MUSCLE ATROPHY) Vitals VITALS Vital Signs Date Time Temp Pulse Resp B/P (MAP) Pulse Ox O2 Delivery O2 Flow Rate FiO2 12/26/16 10:44 97.5 90 18 103/67 (79) 99 Nasal Cannula 3.0 97.5 Labs Labs Laboratory Tests Test 12/25/16 16:10 12/25/16 16:53 12/25/16 17:55 12/25/16 21:00 White Blood Count 15.1 x10^3/uL (4.0-11.0) Red Blood Count 4.40 x10^6/uL (3.50-5.40) Hemoglobin 12.8 g/dL (12.0-15.5) Hematocrit 40.4 % (36.0-47.0) Mean Corpuscular Volume 92 fL (79-100) Mean Corpuscular Hemoglobin 29 pg (25-35) Mean Corpuscular Hemoglobin Concent 32 g/dL (31-37) Red Cell Distribution Width 14.4 % (11.5-14.5) Platelet Count 555 x10^3/uL (140-400) Neutrophils (%) (Auto) 77 % (31-73) Lymphocytes (%) (Auto) 15 % (24-48) Monocytes (%) (Auto) 7 % (0-9) Eosinophils (%) (Auto) 0 % (0-3) Basophils (%) (Auto) 0 % (0-3) Neutrophils # (Auto) 11.6 x10^3uL (1.8-7.7) Lymphocytes # (Auto) 2.3 x10^3/uL (1.0-4.8) Monocytes # (Auto) 1.1 x10^3/uL (0.0-1.1) Eosinophils # (Auto) 0.0 x10^3/uL (0.0-0.7) Basophils # (Auto) 0.1 x10^3/uL (0.0-0.2) Segmented Neutrophils % 72 % (35-66) Band Neutrophils % 1 % (0-9) Lymphocytes % 12 % (24-48) Atypical Lymphocytes % (Manual) 1 % (0-0) Monocytes % 4 % (0-10) Eosinophils % 1 % (0-5) Metamyelocytes % 2 % (0-0) Myelocytes % 7 % (0-0) Nucleated Red Blood Cells 2 Platelet Estimate Increased (ADEQUATE) Large Platelets Present Polychromasia Present Poikilocytosis Slight Anisocytosis Slight Macrocytosis Slight Ovalocytes Present Anderson-Burnham Bodies Present Schistocytes Occ Sodium Level 138 mmol/L (136-145) Potassium Level 3.2 mmol/L (3.5-5.1) Chloride Level 94 mmol/L (98-107) Carbon Dioxide Level 29 mmol/L (21-32) Anion Gap 15 (6-14) Blood Urea Nitrogen 30 mg/dL (7-20) Creatinine 3.1 mg/dL (0.6-1.0) Estimated GFR (Cockcroft-Gault) 17.4 BUN/Creatinine Ratio 10 (6-20) Glucose Level 223 mg/dL (70-99) Calcium Level 7.0 mg/dL (8.5-10.1) Total Bilirubin 0.3 mg/dL (0.2-1.0) Aspartate Amino Transf (AST/SGOT) 33 U/L (15-37) Alanine Aminotransferase (ALT/SGPT) 44 U/L (14-59) Alkaline Phosphatase 358 U/L (46-116) Troponin I Quantitative 0.097 ng/mL (0.000-0.055) Total Protein 6.8 g/dL (6.4-8.2) Albumin 3.4 g/dL (3.4-5.0) Albumin/Globulin Ratio 1.0 (1.0-1.7) Thyroid Stimulating Hormone (TSH) 1.878 uIU/mL (0.358-3.74) Prothrombin Time 15.3 SEC (11.7-14.0) Prothromb Time International Ratio 1.3 (0.8-1.1) Activated Partial Thromboplast Time 24 SEC (24-38) Lactic Acid Level 3.6 mmol/L (0.4-2.0) Urine Collection Type Unknown Urine Color Yellow Urine Clarity Clear Urine pH 6.0 Urine Specific [place] 1.010 Urine Protein Negative mg/dL (NEG-TRACE) Urine Glucose (UA) Negative mg/dL (NEG) Urine Ketones (Stick) Negative mg/dL (NEG) Urine Blood Negative (NEG) Urine Nitrite Negative (NEG) Urine Bilirubin Negative (NEG) Urine Urobilinogen Dipstick 0.2 mg/dL (0.2 mg/dL) Urine Leukocyte Esterase Negative (NEG) Urine RBC Occ /HPF (0-2) Urine WBC 1-4 /HPF (0-4) Urine Squamous Epithelial Cells Few /LPF Urine Transitional Epithelial Cells Occ /LPF Urine Renal Epithelial Cells Occ /LPF Urine Bacteria 0 /HPF (0-FEW) Urine Hyaline Casts Occasional /HPF Urine Mucus Slight /LPF Test 12/25/16 22:55 12/26/16 03:35 12/26/16 07:12 12/26/16 10:00 Troponin I Quantitative 0.092 ng/mL (0.000-0.055) 0.115 ng/mL (0.000-0.055) White Blood Count 15.6 x10^3/uL (4.0-11.0) Red Blood Count 3.68 x10^6/uL (3.50-5.40) Hemoglobin 10.9 g/dL (12.0-15.5) Hematocrit 33.8 % (36.0-47.0) Mean Corpuscular Volume 92 fL (79-100) Mean Corpuscular Hemoglobin 30 pg (25-35) Mean Corpuscular Hemoglobin Concent 32 g/dL (31-37) Red Cell Distribution Width 14.7 % (11.5-14.5) Platelet Count 502 x10^3/uL (140-400) Neutrophils (%) (Auto) 76 % (31-73) Lymphocytes (%) (Auto) 15 % (24-48) Monocytes (%) (Auto) 9 % (0-9) Eosinophils (%) (Auto) 0 % (0-3) Basophils (%) (Auto) 0 % (0-3) Neutrophils # (Auto) 11.9 x10^3uL (1.8-7.7) Lymphocytes # (Auto) 2.3 x10^3/uL (1.0-4.8) Monocytes # (Auto) 1.4 x10^3/uL (0.0-1.1) Eosinophils # (Auto) 0.0 x10^3/uL (0.0-0.7) Basophils # (Auto) 0.0 x10^3/uL (0.0-0.2) Prothrombin Time 16.1 SEC (11.7-14.0) Prothromb Time International Ratio 1.4 (0.8-1.1) Heparin Anti-Xa Act, Unfractionated 0.51 IU/mL (0.30-0.70) > 1.10 IU/mL (0.30-0.70) Sodium Level 144 mmol/L (136-145) Potassium Level 3.2 mmol/L (3.5-5.1) Chloride Level 101 mmol/L (98-107) Carbon Dioxide Level 32 mmol/L (21-32) Anion Gap 11 (6-14) Blood Urea Nitrogen 24 mg/dL (7-20) Creatinine 2.3 mg/dL (0.6-1.0) Estimated GFR (Cockcroft-Gault) 24.6 BUN/Creatinine Ratio 10 (6-20) Glucose Level 139 mg/dL (70-99) Calcium Level 6.5 mg/dL (8.5-10.1) Ionized Calcium 0.76 mmol/L (1.13-1.32) Total Bilirubin 0.3 mg/dL (0.2-1.0) Aspartate Amino Transf (AST/SGOT) 29 U/L (15-37) Alanine Aminotransferase (ALT/SGPT) 33 U/L (14-59) Alkaline Phosphatase 274 U/L (46-116) Total Protein 5.5 g/dL (6.4-8.2) Albumin 2.7 g/dL (3.4-5.0) Albumin/Globulin Ratio 1.0 (1.0-1.7) Glucose (Fingerstick) 165 mg/dL (70-99) Test 12/26/16 11:55 Glucose (Fingerstick) 210 mg/dL (70-99) Laboratory Tests Test 12/25/16 16:10 12/25/16 16:53 12/25/16 17:55 12/25/16 21:00 White Blood Count 15.1 x10^3/uL (4.0-11.0) Red Blood Count 4.40 x10^6/uL (3.50-5.40) Hemoglobin 12.8 g/dL (12.0-15.5) Hematocrit 40.4 % (36.0-47.0) Mean Corpuscular Volume 92 fL (79-100) Mean Corpuscular Hemoglobin 29 pg (25-35) Mean Corpuscular Hemoglobin Concent 32 g/dL (31-37) Red Cell Distribution Width 14.4 % (11.5-14.5) Platelet Count 555 x10^3/uL (140-400) Neutrophils (%) (Auto) 77 % (31-73) Lymphocytes (%) (Auto) 15 % (24-48) Monocytes (%) (Auto) 7 % (0-9) Eosinophils (%) (Auto) 0 % (0-3) Basophils (%) (Auto) 0 % (0-3) Neutrophils # (Auto) 11.6 x10^3uL (1.8-7.7) Lymphocytes # (Auto) 2.3 x10^3/uL (1.0-4.8) Monocytes # (Auto) 1.1 x10^3/uL (0.0-1.1) Eosinophils # (Auto) 0.0 x10^3/uL (0.0-0.7) Basophils # (Auto) 0.1 x10^3/uL (0.0-0.2) Segmented Neutrophils % 72 % (35-66) Band Neutrophils % 1 % (0-9) Lymphocytes % 12 % (24-48) Atypical Lymphocytes % (Manual) 1 % (0-0) Monocytes % 4 % (0-10) Eosinophils % 1 % (0-5) Metamyelocytes % 2 % (0-0) Myelocytes % 7 % (0-0) Nucleated Red Blood Cells 2 Platelet Estimate Increased (ADEQUATE) Large Platelets Present Polychromasia Present Poikilocytosis Slight Anisocytosis Slight Macrocytosis Slight Ovalocytes Present Anderson-Burnham Bodies Present Schistocytes Occ Sodium Level 138 mmol/L (136-145) Potassium Level 3.2 mmol/L (3.5-5.1) Chloride Level 94 mmol/L (98-107) Carbon Dioxide Level 29 mmol/L (21-32) Anion Gap 15 (6-14) Blood Urea Nitrogen 30 mg/dL (7-20) Creatinine 3.1 mg/dL (0.6-1.0) Estimated GFR (Cockcroft-Gault) 17.4 BUN/Creatinine Ratio 10 (6-20) Glucose Level 223 mg/dL (70-99) Calcium Level 7.0 mg/dL (8.5-10.1) Total Bilirubin 0.3 mg/dL (0.2-1.0) Aspartate Amino Transf (AST/SGOT) 33 U/L (15-37) Alanine Aminotransferase (ALT/SGPT) 44 U/L (14-59) Alkaline Phosphatase 358 U/L (46-116) Troponin I Quantitative 0.097 ng/mL (0.000-0.055) Total Protein 6.8 g/dL (6.4-8.2) Albumin 3.4 g/dL (3.4-5.0) Albumin/Globulin Ratio 1.0 (1.0-1.7) Thyroid Stimulating Hormone (TSH) 1.878 uIU/mL (0.358-3.74) Prothrombin Time 15.3 SEC (11.7-14.0) Prothromb Time International Ratio 1.3 (0.8-1.1) Activated Partial Thromboplast Time 24 SEC (24-38) Lactic Acid Level 3.6 mmol/L (0.4-2.0) Urine Collection Type Unknown Urine Color Yellow Urine Clarity Clear Urine pH 6.0 Urine Specific [place] 1.010 Urine Protein Negative mg/dL (NEG-TRACE) Urine Glucose (UA) Negative mg/dL (NEG) Urine Ketones (Stick) Negative mg/dL (NEG) Urine Blood Negative (NEG) Urine Nitrite Negative (NEG) Urine Bilirubin Negative (NEG) Urine Urobilinogen Dipstick 0.2 mg/dL (0.2 mg/dL) Urine Leukocyte Esterase Negative (NEG) Urine RBC Occ /HPF (0-2) Urine WBC 1-4 /HPF (0-4) Urine Squamous Epithelial Cells Few /LPF Urine Transitional Epithelial Cells Occ /LPF Urine Renal Epithelial Cells Occ /LPF Urine Bacteria 0 /HPF (0-FEW) Urine Hyaline Casts Occasional /HPF Urine Mucus Slight /LPF Test 12/25/16 22:55 12/26/16 03:35 12/26/16 07:12 12/26/16 10:00 Troponin I Quantitative 0.092 ng/mL (0.000-0.055) 0.115 ng/mL (0.000-0.055) White Blood Count 15.6 x10^3/uL (4.0-11.0) Red Blood Count 3.68 x10^6/uL (3.50-5.40) Hemoglobin 10.9 g/dL (12.0-15.5) Hematocrit 33.8 % (36.0-47.0) Mean Corpuscular Volume 92 fL (79-100) Mean Corpuscular Hemoglobin 30 pg (25-35) Mean Corpuscular Hemoglobin Concent 32 g/dL (31-37) Red Cell Distribution Width 14.7 % (11.5-14.5) Platelet Count 502 x10^3/uL (140-400) Neutrophils (%) (Auto) 76 % (31-73) Lymphocytes (%) (Auto) 15 % (24-48) Monocytes (%) (Auto) 9 % (0-9) Eosinophils (%) (Auto) 0 % (0-3) Basophils (%) (Auto) 0 % (0-3) Neutrophils # (Auto) 11.9 x10^3uL (1.8-7.7) Lymphocytes # (Auto) 2.3 x10^3/uL (1.0-4.8) Monocytes # (Auto) 1.4 x10^3/uL (0.0-1.1) Eosinophils # (Auto) 0.0 x10^3/uL (0.0-0.7) Basophils # (Auto) 0.0 x10^3/uL (0.0-0.2) Prothrombin Time 16.1 SEC (11.7-14.0) Prothromb Time International Ratio 1.4 (0.8-1.1) Heparin Anti-Xa Act, Unfractionated 0.51 IU/mL (0.30-0.70) > 1.10 IU/mL (0.30-0.70) Sodium Level 144 mmol/L (136-145) Potassium Level 3.2 mmol/L (3.5-5.1) Chloride Level 101 mmol/L (98-107) Carbon Dioxide Level 32 mmol/L (21-32) Anion Gap 11 (6-14) Blood Urea Nitrogen 24 mg/dL (7-20) Creatinine 2.3 mg/dL (0.6-1.0) Estimated GFR (Cockcroft-Gault) 24.6 BUN/Creatinine Ratio 10 (6-20) Glucose Level 139 mg/dL (70-99) Calcium Level 6.5 mg/dL (8.5-10.1) Ionized Calcium 0.76 mmol/L (1.13-1.32) Total Bilirubin 0.3 mg/dL (0.2-1.0) Aspartate Amino Transf (AST/SGOT) 29 U/L (15-37) Alanine Aminotransferase (ALT/SGPT) 33 U/L (14-59) Alkaline Phosphatase 274 U/L (46-116) Total Protein 5.5 g/dL (6.4-8.2) Albumin 2.7 g/dL (3.4-5.0) Albumin/Globulin Ratio 1.0 (1.0-1.7) Glucose (Fingerstick) 165 mg/dL (70-99) Test 12/26/16 11:55 Glucose (Fingerstick) 210 mg/dL (70-99) Assessment/Plan Assessment/Plan IMP CASSIDY-CR OF 3.1-VASOMOTOR CKD STAGE 3-CR OF 2.0 DEHYDRATION PROB PNEUMONIA PROB PE PANCREATIC CANCER S/P CHEMO LEUCOCYTOSIS HYPOKALEMIA PLAN CONSIDER ANTIBIOTICS HOLD HOME LOSARTAN REPLACE K IVF'S MINERVA MARKS MD Dec 26, 2016 12:19
[2016-12-26 14:25] VITALS: BP 103/61
--- NOTE | 2016-12-26 14:32 | PDOC ---
Provider Note Provider Note Med Onc consult: 1. PE - agree with heparin and coumadin. 2. Pancreatic ca- plan to continue chemo as outpatient. see dictation [id number] ALESSANDRO TELLO MD Dec 26, 2016 14:32
--- NOTE | 2016-12-26 14:37 | RAD ---
Bilateral lower extremity venous ultrasound, 12/26/2016: History: Pulmonary emboli Duplex evaluation of the deep veins in the lower extremities was performed including grayscale, color-flow and spectral Doppler analysis. On the right, the common femoral and upper aspect of the superficial femoral vein are widely patent. There is occlusive thrombus in the femoral vein inferiorly in the right thigh extending into the popliteal vein. There is absent blood flow in the posterior tibial and peroneal veins in the right lower leg compatible with occlusive thrombus. On the left, the common femoral vein and the upper aspect of the femoral vein in the by are patent. Inferiorly in the left thigh there is a segment of occlusive thrombus. The left popliteal region was not evaluated due to a bandage related to a left below the knee amputation. IMPRESSION: Deep vein thrombosis in the femoral veins in the distal thighs bilaterally, with extension on the right into the popliteal and calf veins. Note: The findings were given to the patient's nurse on the floor at 2:32 PM on 12/26/2016.
--- NOTE | 2016-12-26 15:47 | PDOC2 ---
CONSULT Date of Consult Date of Consult DATE: 12/26/16 TIME: 15:42 Reason for Consult Reason for Consult: Cardiac history Referring Physician Referring Physician: Dr Pace Identification/Chief Complaint Chief Complaint Dyspnea Problems: History of Present Illness Reason for Visit: This patient is a very pleasant 81-year-old lady that has a known history of an ischemic cardiomyopathy and is status post CABG. She has a pancreatic carcinoma with metastatic disease and has been receiving chemotherapy. The patient came in with progressive dyspnea that started acutely and was found to have a pulmonary embolism in the VQ scan. Patient is now on heparin and warfarin. She is a BKA on the left and has some lesions on the stump and on the posterior aspect behind the knee. Except for the dyspnea the patient is not having any cardiac complaints. Past Medical History Cardiovascular: CAD, HTN, Pulmonary hypertension Pulmonary: COPD GI: Constipation Heme/Onc: Cancer Hepatobiliary: No pertinent hx Psych: No pertinent hx Renal/: Chronic renal insuff Past Surgical History Past Surgical History: CABG, Other Family History Family History: Diabetes, Other Social History No ALCOHOL: none Drugs: None Lives: with Family Current Problem List Problem List Problems Medical Problems: (1) Elevated troponin Status: Acute (2) Leukocytosis Status: Acute Current Medications Current Medications Current Medications Sodium Chloride 1,000 ml @ 999 mls/hr Q1H1M IV Last administered on 18:03; Start 12/25/16 at 16:09; Stop 12/25/16 at 23:50; Status DC Ondansetron HCl (Zofran) 4 mg PRN Q8HRS PRN IV NAUSEA/VOMITING; Start at 17:30; Stop 12/26/16 at 17:29 Sodium Chloride 1,000 ml @ 125 mls/hr Q8H IV Last administered on 12/25/16 20:54; Start 12/25/16 at 17:18; Stop 12/26/16 at 09:51; Status DC Heparin Sodium/ Dextrose 500 ml @ 0 mls/hr CONT PRN IV SEE I/O RECORD Last administered on 12/25/16 20:51; Start 12/25/16 at 18:45 Heparin Sodium (Porcine) (Heparin Sodium) 2,150 unit PRN Q6HRS PRN IV FOR UFH LEVEL LESS THAN 0.2; Start 12/25/16 at 18:45 Heparin Sodium (Porcine) (Heparin Sodium) 1,100 unit PRN Q6HRS PRN IV FOR UFH LEVEL 0.2 - 0.29; Start 12/25/16 at 18:45 Warfarin Sodium (Coumadin Per Pharmacy) 1 each PRN DAILY PRN MC PER PROTOCOL Last administered on 12/26/16 11:01; Start 12/25/16 at 18:45 Potassium Chloride (Klor-Con) 40 meq 1X ONCE PO Last administered on 19:24; Start 12/25/16 at 18:45; Stop 12/25/16 at 18:46; Status DC Alprazolam (Xanax) 0.25 mg Q8HRS PRN PO ANXIETY Last administered on 00:11; Start 12/25/16 at 18:45 Aspirin (Ecotrin) 81 mg DAILY PO Last administered on 12/26/16 08:32; Start 12/26/16 at 09:00 Carvedilol (Coreg) 12.5 mg BIDWMEALS PO Last administered on 12/26/16 08:33; Start 12/26/16 at 08:00 Furosemide (Lasix) 40 mg DAILY PO Last administered on 12/26/16 08:32; Start 12/26/16 at 09:00 Acetaminophen/ Hydrocodone Bitart (Lortab 5/325) 2 tab PRN Q4HRS PRN PO PAIN; Start 12/25/16 at 18:45 Metoclopramide HCl (Reglan) 5 mg BIDACBL PO Last administered on 12/26/16 11: 34; Start 12/26/16 at 07:30 Pantoprazole Sodium (Protonix) 40 mg DAILYAC PO Last administered on 08:31; Start 12/26/16 at 07:30 Polyethylene Glycol (miraLAX PACKET) 17 gm PRN DAILY PRN PO CONSTIPATION; Start 12/25/16 at 18:45 Simvastatin (Zocor) 20 mg QHS PO Last administered on 12/25/16 20:54; Start 12/25/16 at 21:00 Potassium Chloride (Klor-Con) 10 meq DAILYWBKFT PO Last administered on 08:31; Start 12/26/16 at 08:00 Venlafaxine HCl (Effexor Xr) 75 mg DAILY PO Last administered on 12/26/16 08: 32; Start 12/26/16 at 09:00 Warfarin Sodium (Coumadin) 5 mg 1X WARF ONCE PO Last administered on 19:25; Start 12/25/16 at 19:00; Stop 12/25/16 at 19:01; Status DC Insulin Aspart (NovoLOG) 0-7 UNITS TIDWMEALS SQ Last administered on 12:24; Start 12/26/16 at 08:00 Dextrose (Dextrose 50%-Water Syringe) 12.5 gm PRN Q15MIN PRN IV SEE COMMENTS; Start 12/25/16 at 18:45 Docusate Sodium (Colace) 100 mg PRN DAILY PRN PO CONSTIPATION; Start 12/25/16 at 19:00 Potassium Chloride (Klor-Con) 40 meq 1X ONCE PO Last administered on 11:33; Start 12/26/16 at 10:00; Stop 12/26/16 at 10:01; Status DC Potassium Chloride/Sodium Chloride 1,000 ml @ 75 mls/hr 1X ONCE IV Last administered on 12/26/16 11:33; Start 12/26/16 at 10:00; Stop 12/26/16 at 23 :19 Warfarin Sodium (Coumadin) 5 mg 1X WARF ONCE PO ; Start 12/26/16 at 16:00; Stop 12/26/16 at 16:01 Active Scripts Active Hydrocodone-Apap 5-325 (Hydrocodone Bit/Acetaminophen) 1 Each Tablet 1-2 Tab PO PRN Q4HRS PRN Bradford 5-325 Tablet (Acetaminophen/Hydrocodone Bitart) 1 Each Tablet 1-2 Tab PO Q4-6HRS Reported Hydrocodone-Apap 5-325 (Hydrocodone Bit/Acetaminophen) 1 Each Tablet 2 Tab PO PRN Q4HRS PRN Venlafaxine Hcl Er (Venlafaxine Hcl) 75 Mg Cap.er.24h 1 Cap PO DAILY Lasix (Furosemide) 40 Mg Tablet 1 Tab PO DAILY Xanax (Alprazolam) 0.5 Mg Tablet 0.25 Mg PO HS PRN PRN Tramadol-Acetaminophn 37.5-325 (Tramadol Hcl/Acetaminophen) 1 Each Tablet 1 Tab PO Q6HRS Reglan (Metoclopramide Hcl) 10 Mg Tablet 5 Mg PO BIDACBL Pantoprazole Sodium 40 Mg Tablet.dr 40 Tab PO DAILY Carvedilol 12.5 Mg Tablet 12.5 Mg PO BIDWMEALS Losartan Potassium 50 Mg Tablet 100 Mg PO DAILY Miralax (Polyethylene Glycol 3350) 17 Gm Powd.pack 17 Gm PO PRN DAILY Aspir 81 (Aspirin) 81 Mg Tablet.dr 81 Mg PO DAILY Klor-Con (Potassium Chloride) 20 Meq Packet 10 Meq PO DAILY Zocor (Simvastatin) 20 Mg Tablet 20 Mg PO DAILY Allergies Allergies: Coded Allergies: Penicillins (Verified Allergy, Intermediate, ITCH, 09/04/16) Physical Exam General: Alert, Oriented X3, Cooperative HEENT: PERRLA Lungs: Clear to auscultation Heart: Regular rate, Normal S1, Normal S2 Abdomen: Normal bowel sounds, Soft Extremities: Other (left BKA. The lesions on the stump on the posterior aspect of the left knee are being dressed by the wound care center.) Vitals VITALS Vital Signs Date Time Temp Pulse Resp B/P (MAP) Pulse Ox O2 Delivery O2 Flow Rate FiO2 12/26/16 14:25 97.6 93 20 103/61 (75) 96 Nasal Cannula 3.0 97.6 Labs Labs Laboratory Tests Test 12/25/16 16:10 12/25/16 16:53 12/25/16 17:55 12/25/16 21:00 White Blood Count 15.1 x10^3/uL (4.0-11.0) Red Blood Count 4.40 x10^6/uL (3.50-5.40) Hemoglobin 12.8 g/dL (12.0-15.5) Hematocrit 40.4 % (36.0-47.0) Mean Corpuscular Volume 92 fL (79-100) Mean Corpuscular Hemoglobin 29 pg (25-35) Mean Corpuscular Hemoglobin Concent 32 g/dL (31-37) Red Cell Distribution Width 14.4 % (11.5-14.5) Platelet Count 555 x10^3/uL (140-400) Neutrophils (%) (Auto) 77 % (31-73) Lymphocytes (%) (Auto) 15 % (24-48) Monocytes (%) (Auto) 7 % (0-9) Eosinophils (%) (Auto) 0 % (0-3) Basophils (%) (Auto) 0 % (0-3) Neutrophils # (Auto) 11.6 x10^3uL (1.8-7.7) Lymphocytes # (Auto) 2.3 x10^3/uL (1.0-4.8) Monocytes # (Auto) 1.1 x10^3/uL (0.0-1.1) Eosinophils # (Auto) 0.0 x10^3/uL (0.0-0.7) Basophils # (Auto) 0.1 x10^3/uL (0.0-0.2) Segmented Neutrophils % 72 % (35-66) Band Neutrophils % 1 % (0-9) Lymphocytes % 12 % (24-48) Atypical Lymphocytes % (Manual) 1 % (0-0) Monocytes % 4 % (0-10) Eosinophils % 1 % (0-5) Metamyelocytes % 2 % (0-0) Myelocytes % 7 % (0-0) Nucleated Red Blood Cells 2 Platelet Estimate Increased (ADEQUATE) Large Platelets Present Polychromasia Present Poikilocytosis Slight Anisocytosis Slight Macrocytosis Slight Ovalocytes Present [place] Bodies Present Schistocytes Occ Sodium Level 138 mmol/L (136-145) Potassium Level 3.2 mmol/L (3.5-5.1) Chloride Level 94 mmol/L (98-107) Carbon Dioxide Level 29 mmol/L (21-32) Anion Gap 15 (6-14) Blood Urea Nitrogen 30 mg/dL (7-20) Creatinine 3.1 mg/dL (0.6-1.0) Estimated GFR (Cockcroft-Gault) 17.4 BUN/Creatinine Ratio 10 (6-20) Glucose Level 223 mg/dL (70-99) Calcium Level 7.0 mg/dL (8.5-10.1) Total Bilirubin 0.3 mg/dL (0.2-1.0) Aspartate Amino Transf (AST/SGOT) 33 U/L (15-37) Alanine Aminotransferase (ALT/SGPT) 44 U/L (14-59) Alkaline Phosphatase 358 U/L (46-116) Troponin I Quantitative 0.097 ng/mL (0.000-0.055) Total Protein 6.8 g/dL (6.4-8.2) Albumin 3.4 g/dL (3.4-5.0) Albumin/Globulin Ratio 1.0 (1.0-1.7) Thyroid Stimulating Hormone (TSH) 1.878 uIU/mL (0.358-3.74) Prothrombin Time 15.3 SEC (11.7-14.0) Prothromb Time International Ratio 1.3 (0.8-1.1) Activated Partial Thromboplast Time 24 SEC (24-38) Lactic Acid Level 3.6 mmol/L (0.4-2.0) Urine Collection Type Unknown Urine Color Yellow Urine Clarity Clear Urine pH 6.0 Urine Specific [place] 1.010 Urine Protein Negative mg/dL (NEG-TRACE) Urine Glucose (UA) Negative mg/dL (NEG) Urine Ketones (Stick) Negative mg/dL (NEG) Urine Blood Negative (NEG) Urine Nitrite Negative (NEG) Urine Bilirubin Negative (NEG) Urine Urobilinogen Dipstick 0.2 mg/dL (0.2 mg/dL) Urine Leukocyte Esterase Negative (NEG) Urine RBC Occ /HPF (0-2) Urine WBC 1-4 /HPF (0-4) Urine Squamous Epithelial Cells Few /LPF Urine Transitional Epithelial Cells Occ /LPF Urine Renal Epithelial Cells Occ /LPF Urine Bacteria 0 /HPF (0-FEW) Urine Hyaline Casts Occasional /HPF Urine Mucus Slight /LPF Test 12/25/16 22:55 12/26/16 03:35 12/26/16 07:12 12/26/16 10:00 Troponin I Quantitative 0.092 ng/mL (0.000-0.055) 0.115 ng/mL (0.000-0.055) White Blood Count 15.6 x10^3/uL (4.0-11.0) Red Blood Count 3.68 x10^6/uL (3.50-5.40) Hemoglobin 10.9 g/dL (12.0-15.5) Hematocrit 33.8 % (36.0-47.0) Mean Corpuscular Volume 92 fL (79-100) Mean Corpuscular Hemoglobin 30 pg (25-35) Mean Corpuscular Hemoglobin Concent 32 g/dL (31-37) Red Cell Distribution Width 14.7 % (11.5-14.5) Platelet Count 502 x10^3/uL (140-400) Neutrophils (%) (Auto) 76 % (31-73) Lymphocytes (%) (Auto) 15 % (24-48) Monocytes (%) (Auto) 9 % (0-9) Eosinophils (%) (Auto) 0 % (0-3) Basophils (%) (Auto) 0 % (0-3) Neutrophils # (Auto) 11.9 x10^3uL (1.8-7.7) Lymphocytes # (Auto) 2.3 x10^3/uL (1.0-4.8) Monocytes # (Auto) 1.4 x10^3/uL (0.0-1.1) Eosinophils # (Auto) 0.0 x10^3/uL (0.0-0.7) Basophils # (Auto) 0.0 x10^3/uL (0.0-0.2) Prothrombin Time 16.1 SEC (11.7-14.0) Prothromb Time International Ratio 1.4 (0.8-1.1) Heparin Anti-Xa Act, Unfractionated 0.51 IU/mL (0.30-0.70) > 1.10 IU/mL (0.30-0.70) Sodium Level 144 mmol/L (136-145) Potassium Level 3.2 mmol/L (3.5-5.1) Chloride Level 101 mmol/L (98-107) Carbon Dioxide Level 32 mmol/L (21-32) Anion Gap 11 (6-14) Blood Urea Nitrogen 24 mg/dL (7-20) Creatinine 2.3 mg/dL (0.6-1.0) Estimated GFR (Cockcroft-Gault) 24.6 BUN/Creatinine Ratio 10 (6-20) Glucose Level 139 mg/dL (70-99) Calcium Level 6.5 mg/dL (8.5-10.1) Ionized Calcium 0.76 mmol/L (1.13-1.32) Total Bilirubin 0.3 mg/dL (0.2-1.0) Aspartate Amino Transf (AST/SGOT) 29 U/L (15-37) Alanine Aminotransferase (ALT/SGPT) 33 U/L (14-59) Alkaline Phosphatase 274 U/L (46-116) Total Protein 5.5 g/dL (6.4-8.2) Albumin 2.7 g/dL (3.4-5.0) Albumin/Globulin Ratio 1.0 (1.0-1.7) Glucose (Fingerstick) 165 mg/dL (70-99) Test 12/26/16 11:55 Glucose (Fingerstick) 210 mg/dL (70-99) Laboratory Tests Test 12/25/16 16:10 12/25/16 16:53 12/25/16 17:55 12/25/16 21:00 White Blood Count 15.1 x10^3/uL (4.0-11.0) Red Blood Count 4.40 x10^6/uL (3.50-5.40) Hemoglobin 12.8 g/dL (12.0-15.5) Hematocrit 40.4 % (36.0-47.0) Mean Corpuscular Volume 92 fL (79-100) Mean Corpuscular Hemoglobin 29 pg (25-35) Mean Corpuscular Hemoglobin Concent 32 g/dL (31-37) Red Cell Distribution Width 14.4 % (11.5-14.5) Platelet Count 555 x10^3/uL (140-400) Neutrophils (%) (Auto) 77 % (31-73) Lymphocytes (%) (Auto) 15 % (24-48) Monocytes (%) (Auto) 7 % (0-9) Eosinophils (%) (Auto) 0 % (0-3) Basophils (%) (Auto) 0 % (0-3) Neutrophils # (Auto) 11.6 x10^3uL (1.8-7.7) Lymphocytes # (Auto) 2.3 x10^3/uL (1.0-4.8) Monocytes # (Auto) 1.1 x10^3/uL (0.0-1.1) Eosinophils # (Auto) 0.0 x10^3/uL (0.0-0.7) Basophils # (Auto) 0.1 x10^3/uL (0.0-0.2) Segmented Neutrophils % 72 % (35-66) Band Neutrophils % 1 % (0-9) Lymphocytes % 12 % (24-48) Atypical Lymphocytes % (Manual) 1 % (0-0) Monocytes % 4 % (0-10) Eosinophils % 1 % (0-5) Metamyelocytes % 2 % (0-0) Myelocytes % 7 % (0-0) Nucleated Red Blood Cells 2 Platelet Estimate Increased (ADEQUATE) Large Platelets Present Polychromasia Present Poikilocytosis Slight Anisocytosis Slight Macrocytosis Slight Ovalocytes Present [place] Bodies Present Schistocytes Occ Sodium Level 138 mmol/L (136-145) Potassium Level 3.2 mmol/L (3.5-5.1) Chloride Level 94 mmol/L (98-107) Carbon Dioxide Level 29 mmol/L (21-32) Anion Gap 15 (6-14) Blood Urea Nitrogen 30 mg/dL (7-20) Creatinine 3.1 mg/dL (0.6-1.0) Estimated GFR (Cockcroft-Gault) 17.4 BUN/Creatinine Ratio 10 (6-20) Glucose Level 223 mg/dL (70-99) Calcium Level 7.0 mg/dL (8.5-10.1) Total Bilirubin 0.3 mg/dL (0.2-1.0) Aspartate Amino Transf (AST/SGOT) 33 U/L (15-37) Alanine Aminotransferase (ALT/SGPT) 44 U/L (14-59) Alkaline Phosphatase 358 U/L (46-116) Troponin I Quantitative 0.097 ng/mL (0.000-0.055) Total Protein 6.8 g/dL (6.4-8.2) Albumin 3.4 g/dL (3.4-5.0) Albumin/Globulin Ratio 1.0 (1.0-1.7) Thyroid Stimulating Hormone (TSH) 1.878 uIU/mL (0.358-3.74) Prothrombin Time 15.3 SEC (11.7-14.0) Prothromb Time International Ratio 1.3 (0.8-1.1) Activated Partial Thromboplast Time 24 SEC (24-38) Lactic Acid Level 3.6 mmol/L (0.4-2.0) Urine Collection Type Unknown Urine Color Yellow Urine Clarity Clear Urine pH 6.0 Urine Specific [place] 1.010 Urine Protein Negative mg/dL (NEG-TRACE) Urine Glucose (UA) Negative mg/dL (NEG) Urine Ketones (Stick) Negative mg/dL (NEG) Urine Blood Negative (NEG) Urine Nitrite Negative (NEG) Urine Bilirubin Negative (NEG) Urine Urobilinogen Dipstick 0.2 mg/dL (0.2 mg/dL) Urine Leukocyte Esterase Negative (NEG) Urine RBC Occ /HPF (0-2) Urine WBC 1-4 /HPF (0-4) Urine Squamous Epithelial Cells Few /LPF Urine Transitional Epithelial Cells Occ /LPF Urine Renal Epithelial Cells Occ /LPF Urine Bacteria 0 /HPF (0-FEW) Urine Hyaline Casts Occasional /HPF Urine Mucus Slight /LPF Test 12/25/16 22:55 12/26/16 03:35 12/26/16 07:12 12/26/16 10:00 Troponin I Quantitative 0.092 ng/mL (0.000-0.055) 0.115 ng/mL (0.000-0.055) White Blood Count 15.6 x10^3/uL (4.0-11.0) Red Blood Count 3.68 x10^6/uL (3.50-5.40) Hemoglobin 10.9 g/dL (12.0-15.5) Hematocrit 33.8 % (36.0-47.0) Mean Corpuscular Volume 92 fL (79-100) Mean Corpuscular Hemoglobin 30 pg (25-35) Mean Corpuscular Hemoglobin Concent 32 g/dL (31-37) Red Cell Distribution Width 14.7 % (11.5-14.5) Platelet Count 502 x10^3/uL (140-400) Neutrophils (%) (Auto) 76 % (31-73) Lymphocytes (%) (Auto) 15 % (24-48) Monocytes (%) (Auto) 9 % (0-9) Eosinophils (%) (Auto) 0 % (0-3) Basophils (%) (Auto) 0 % (0-3) Neutrophils # (Auto) 11.9 x10^3uL (1.8-7.7) Lymphocytes # (Auto) 2.3 x10^3/uL (1.0-4.8) Monocytes # (Auto) 1.4 x10^3/uL (0.0-1.1) Eosinophils # (Auto) 0.0 x10^3/uL (0.0-0.7) Basophils # (Auto) 0.0 x10^3/uL (0.0-0.2) Prothrombin Time 16.1 SEC (11.7-14.0) Prothromb Time International Ratio 1.4 (0.8-1.1) Heparin Anti-Xa Act, Unfractionated 0.51 IU/mL (0.30-0.70) > 1.10 IU/mL (0.30-0.70) Sodium Level 144 mmol/L (136-145) Potassium Level 3.2 mmol/L (3.5-5.1) Chloride Level 101 mmol/L (98-107) Carbon Dioxide Level 32 mmol/L (21-32) Anion Gap 11 (6-14) Blood Urea Nitrogen 24 mg/dL (7-20) Creatinine 2.3 mg/dL (0.6-1.0) Estimated GFR (Cockcroft-Gault) 24.6 BUN/Creatinine Ratio 10 (6-20) Glucose Level 139 mg/dL (70-99) Calcium Level 6.5 mg/dL (8.5-10.1) Ionized Calcium 0.76 mmol/L (1.13-1.32) Total Bilirubin 0.3 mg/dL (0.2-1.0) Aspartate Amino Transf (AST/SGOT) 29 U/L (15-37) Alanine Aminotransferase (ALT/SGPT) 33 U/L (14-59) Alkaline Phosphatase 274 U/L (46-116) Total Protein 5.5 g/dL (6.4-8.2) Albumin 2.7 g/dL (3.4-5.0) Albumin/Globulin Ratio 1.0 (1.0-1.7) Glucose (Fingerstick) 165 mg/dL (70-99) Test 12/26/16 11:55 Glucose (Fingerstick) 210 mg/dL (70-99) Assessment/Plan Assessment/Plan This patient with known coronary artery disease that is status post CABG appears to be compensated cardiac-ham at this time. The patient's admissions and symptoms seem to be secondary to a pulmonary embolism. I agree with the present plan of treatment for the patient. Thank you very much for asking me to participate in the care of this patient. YVONNE WOODARD MD Dec 26, 2016 15:47
[2016-12-26] MEDS ORDERED: WARFARIN 5 MG TABLET. PO ONE (16:00)
[2016-12-26 19:15] VITALS: BP 108/58
[2016-12-26] MEDS: SIMVASTATIN 20 MG TABLET PO SCH (21:14)
[2016-12-26] MEDS: HEPARIN 25,000UTS/500ML PREMIX 500 ML IV PRN (21:16)
[2016-12-26 23:50] VITALS: BP 127/71
[2016-12-27 03:00] VITALS: BP 157/79
--- NOTE | 2016-12-27 04:49 | CONS ---
DATE OF CONSULTATION: 12/26/2016 REQUESTING PHYSICIAN: Dr. Holly Pace. REASON FOR CONSULTATION: Pancreatic cancer, now admitted with pulmonary embolism. HISTORY OF PRESENT ILLNESS: The patient is an 81-year-old female who was initially admitted to [facility] on 10/26/2016 with abdominal pain and weight loss. CT scan on 10/25/2016 revealed a 1.3 cm nodule in the right lung based and another nodular mass in the left lung base measuring 1.6 cm and there was a 1.3 cm mass in the pancreas. She underwent endoscopic ultrasound on 10/31/2016, which revealed adenocarcinoma of the head of the pancreas. This was staged as a stage 4 malignancy because of the lung metastasis. She was started on chemotherapy with Gemzar on 11/25/2016. She has been tolerating the treatments quite well. She received cycle #1 day #15 on 12/09/2016. She was evaluated by my nurse practitioner for shortness of breath on 12/24/2016 and hence a V/Q scan was obtained on 12/25/2016, which was positive for pulmonary embolism. She was admitted to [facility] and started on Xarelto. I was asked to see the patient for further evaluation and management. PAST MEDICAL HISTORY: Pancreatic cancer as described above, questionable history of DVT in the past, myocardial infarction, UTI, CHF, depression, CABG, hysterectomy, left below knee amputation. SOCIAL HISTORY: She quit smoking in 2010. She has smoked for 25-30 years. FAMILY HISTORY: Positive for diabetes. REVIEW OF SYSTEMS: A 12-point review of system was performed. Pertinent positives are mentioned in the history of present illness. Rest of the system review is negative. PHYSICAL EXAMINATION: GENERAL APPEARANCE: The patient is an 81-year-old female who is in no acute cardiorespiratory distress. VITAL SIGNS: Blood pressure 103/67, temperature 97.5. HEAD: Atraumatic, normocephalic. EYES: No icterus. NECK: Supple. CHEST: Bilaterally symmetrical. No crepitations or rhonchi heard. HEART: S1, S2 normal. ABDOMEN: Soft, nontender. No hepatosplenomegaly. CENTRAL NERVOUS SYSTEM: No focal deficits. LYMPHATICS: No lymphadenopathy. SKIN: No rashes. PSYCHOLOGIC: Mood and affect are appropriate. MUSCULOSKELETAL: No joint effusions. LABORATORY DATA: WBC 15.6, hemoglobin 10.9, platelet count 502. IMPRESSION AND PLAN: 1. Stage 4 pancreatic cancer with lung metastasis diagnosed on 10/31/2016. She is on palliative chemotherapy with gemcitabine that was initiated on 11/25/2016 and she received cycle #1 day #15 on 12/09/2016. I have advised her to follow up with me upon discharge for continuation of chemotherapy. 2. Acute pulmonary embolism diagnosed on 12/25/2016. She is currently on heparin, agreed to transition to Coumadin. 3. Anemia due to malignancy, no signs of bleeding. Continue to monitor. ALESSANDRO TELLO MD DR: DAPHNE/sue JOB#: [id number] / [id number] [place]
[2016-12-27] MEDS: HYDROcodone/APAP 5/325MG 1 TAB TABLET PO PRN ×2 (06:30→11:22)
[2016-12-27 06:50] LABS: CALCIUM 6.5 mg/dL (8.5-10.1); CREATININE 1.6 mg/dL (0.6-1.0); GFR 37.3; POTASSIUM 3.2 mmol/L (3.5-5.1)
[2016-12-27 07:00] VITALS: BP 148/91
[2016-12-27 07:14] LABS: INR 2.2 (0.8-1.1); PROTHROMBIN TIME PATIENT 23.2 SEC (11.7-14.0)
[2016-12-27] MEDS: INSULIN ASPART 300 UNITS/3 ML INSULN.PEN SQ SCH ×3 (08:00→17:19)
[2016-12-27] MEDS: VENLAFAXINE XR 37.5 MG CAP.ER.24H. PO SCH (08:30)
[2016-12-27] MEDS: ASPIRIN ENTERIC COATED 81 MG TABLET.DR. PO SCH (08:31)
[2016-12-27] MEDS: METOCLOPRAMIDE 10 MG TABLET. PO SCH ×2 (08:31→11:22)
[2016-12-27] MEDS: FUROSEMIDE 40 MG TABLET. PO SCH (08:31)
[2016-12-27] MEDS: CARVEDILOL 12.5 MG TABLET. PO SCH ×2 (08:31→17:12)
[2016-12-27] MEDS: POTASSIUM CHLORIDE 10 MEQ TABLET.ER. PO SCH (08:32)
[2016-12-27] MEDS: PANTOPRAZOLE 40 MG TABLET.DR. PO SCH (08:32)
--- NOTE | 2016-12-27 09:17 | PDOC ---
PROGRESS NOTES Chief Complaint Chief Complaint PE ASSESSMENT AND PLAN: 1. PE: + VQ scan done as an outpatient. currently on heparin gtt, 2/2 advanced renal insufficiency, with conversion coumadin 2. CKD4: avoid nephrotoxic meds. appreciate nephrolgy input 3. Pancreatic CA: on weekly chemo. Onc following. high risk for VTE 4. CAD: s/p CABG 5 years ago; cont 2ary prevention meds 5. Hypokalemia: K remains low. replete, check mag 6. Nausea, poor PO intake: prob 2/2 chemo given yesterday as well as primary malignancy. risk of malnutrition, consult 7. Leukocytosis: reactive. monitor; anticipate potential decrease post chemo 8. troponin leak: 2/2 PE. cardiology following History of Present Illness History of Present Illness sleepy. poor appetite. no nausea or abd pain Vitals Vitals Vital Signs Date Time Temp Pulse Resp B/P (MAP) Pulse Ox O2 Delivery O2 Flow Rate FiO2 12/27/16 08:31 103 148/91 12/27/16 08:00 Nasal Cannula 3.0 12/27/16 07:31 85 12/27/16 07:00 97.8 20 97.8 Physical Exam General: Cooperative, No acute distress, Other (lethargic) Heart: Regular rate Lungs: Clear Abdomen: Normal bowel sounds, Soft, No tenderness Extremities: No edema, Other (left BKA. 2 lesions on stump on the posterior aspect of the left knee ) Skin: No breakdown Labs LABS Laboratory Tests Test 12/26/16 10:00 12/26/16 11:55 12/26/16 16:20 12/26/16 19:00 Heparin Anti-Xa Act, Unfractionated > 1.10 IU/mL (0.30-0.70) 1.02 IU/mL (0.30-0.70) Glucose (Fingerstick) 210 mg/dL (70-99) 116 mg/dL (70-99) Test 12/26/16 23:08 12/27/16 01:00 12/27/16 06:10 12/27/16 07:34 Glucose (Fingerstick) 131 mg/dL (70-99) 144 mg/dL (70-99) Heparin Anti-Xa Act, Unfractionated 0.64 IU/mL (0.30-0.70) 0.54 IU/mL (0.30-0.70) Prothrombin Time 23.2 SEC (11.7-14.0) Prothromb Time International Ratio 2.2 (0.8-1.1) Sodium Level 143 mmol/L (136-145) Potassium Level 3.2 mmol/L (3.5-5.1) Chloride Level 103 mmol/L (98-107) Carbon Dioxide Level 31 mmol/L (21-32) Anion Gap 9 (6-14) Blood Urea Nitrogen 17 mg/dL (7-20) Creatinine 1.6 mg/dL (0.6-1.0) Estimated GFR (Cockcroft-Gault) 37.3 Glucose Level 117 mg/dL (70-99) Calcium Level 6.5 mg/dL (8.5-10.1) INDY RONDON MD Dec 27, 2016 09:17
[2016-12-27] MEDS ORDERED: MAGNESIUM SULFATE 2GM 50 ML IV PRN (09:30)
--- NOTE | 2016-12-27 09:30 | PDOC ---
SUBJECTIVE ROS CASSIDY + CKD III doing Ok - PO intake is marginal CVS: no Orthopnea, no CP RESP: no SOB, no HUNTER GI: no Nausea, no Vomiting : no Dysuria, no Urgency OBJECTIVE Vital Signs Vital Signs Date Time Temp Pulse Resp B/P (MAP) Pulse Ox O2 Delivery O2 Flow Rate FiO2 12/27/16 08:31 103 148/91 12/27/16 08:00 Nasal Cannula 3.0 12/27/16 07:31 85 12/27/16 07:00 97.8 20 97.8 I & 0 Intake and Output 12/27/16 07:00 Intake Total 1110 ml Output Total 2025 ml Balance -915 ml Intake Oral 1110 ml Output Urine Total 2025 ml # Voids 5 # Bowel Movements 2 PHYSICAL EXAM Physical Exam GEN: Awake, Oriented x 2, In no distress EYES: Vision Unchanged, Conjunctiva Normal EN: No EN Drainage, Mucous Membranes moist NECK: no JVD, no JVP, Supple, no Thyromegaly CVS: S1S2, no Murmur, No Gallop, No Rub,no Edema RESP: no Rales, no Rhonchi,no Acc. Muscle Use GI: BS + ve, NO Bruit, Non Tender, Non Distended : no CVA tenderness, no Suprapubic Tenderness DIAGNOSIS/ASSESSMENT Assessment & Plan CASSIDY-CR OF 3.1-VASOMOTOR - much improved today after vol repletion CKD STAGE 3-CR OF 1.4 vamsi at baseline as noted in Oct 2016 DEHYDRATION - ? resolved - hold lasix H/o sys CHF - no recent ECHO - EF as 39% in 2014 PANCREATIC CANCER - S/P CHEMO - defer to Dr Randle HYPOKALEMIA - replace as ordered, Hold lasix Hypocalcemia - check Mag and PTH, etc see O for details (suspect due to IVF and lasix use) Problems: COMMENT/RELEVANT DATA Meds Current Medications Medications (Trade) Dose Ordered Sig/Zoya Start Time Stop Time Status Last Admin Dose Admin Acetaminophen/ Hydrocodone Bitart (Lortab 5/325) 2 tab PRN Q4HRS PRN 12/25/16 18:45 12/27/16 06:30 2 TAB Alprazolam (Xanax) 0.25 mg Q8HRS PRN 12/25/16 18:45 12/26/16 21:34 0.25 MG Aspirin (Ecotrin) 81 mg DAILY 12/26/16 09:00 12/27/16 08:31 81 MG Carvedilol (Coreg) 12.5 mg BIDWMEALS 12/26/16 08:00 12/27/16 08:31 12.5 MG Dextrose (Dextrose 50%-Water Syringe) 12.5 gm PRN Q15MIN PRN 12/25/16 18:45 Docusate Sodium (Colace) 100 mg PRN DAILY PRN 12/25/16 19:00 Furosemide (Lasix) 40 mg DAILY 12/26/16 09:00 12/27/16 08:31 40 MG Heparin Sodium (Porcine) (Heparin Sodium) 1,100 unit PRN Q6HRS PRN 12/25/16 18:45 Heparin Sodium/ Dextrose 500 ml @ 0 mls/hr CONT PRN 12/25/16 18:45 12/26/16 21:16 0 MLS/HR Insulin Aspart (NovoLOG) 0-7 UNITS TIDWMEALS 12/26/16 08:00 12/26/16 12:24 4 UNITS Metoclopramide HCl (Reglan) 5 mg BIDACBL 12/26/16 07:30 12/27/16 08:31 5 MG Ondansetron HCl (Zofran) 4 mg PRN Q8HRS PRN 12/25/16 17:30 12/26/16 17:29 DC Pantoprazole Sodium (Protonix) 40 mg DAILYAC 12/26/16 07:30 12/27/16 08:32 40 MG Polyethylene Glycol (miraLAX PACKET) 17 gm PRN DAILY PRN 12/25/16 18:45 Potassium Chloride/Sodium Chloride 1,000 ml @ 75 mls/hr 1X ONCE 12/26/16 10:00 12/26/16 23:19 DC 12/26/16 11:33 75 MLS/HR Potassium Chloride (Klor-Con) 20 meq BIDACLD 12/27/16 11:30 12/27/16 22:00 UNV Simvastatin (Zocor) 20 mg QHS 12/25/16 21:00 12/26/16 21:14 20 MG Sodium Chloride 1,000 ml @ 125 mls/hr Q8H 12/25/16 17:18 12/26/16 09:51 DC 12/25/16 20:54 125 MLS/HR Venlafaxine HCl (Effexor Xr) 75 mg DAILY 12/26/16 09:00 12/27/16 08:30 75 MG Warfarin Sodium (Coumadin Per Pharmacy) 1 each PRN DAILY PRN 12/25/16 18:45 12/26/16 11:01 1 EACH Warfarin Sodium (Coumadin) 5 mg 1X WARF ONCE 12/26/16 16:00 12/26/16 16:01 DC 12/26/16 16:46 5 MG Lab Laboratory Tests Test 12/26/16 10:00 12/26/16 11:55 12/26/16 16:20 12/26/16 19:00 Heparin Anti-Xa Act, Unfractionated > 1.10 IU/mL (0.30-0.70) 1.02 IU/mL (0.30-0.70) Glucose (Fingerstick) 210 mg/dL (70-99) 116 mg/dL (70-99) Test 12/26/16 23:08 12/27/16 01:00 12/27/16 06:10 12/27/16 07:34 Glucose (Fingerstick) 131 mg/dL (70-99) 144 mg/dL (70-99) Heparin Anti-Xa Act, Unfractionated 0.64 IU/mL (0.30-0.70) 0.54 IU/mL (0.30-0.70) Prothrombin Time 23.2 SEC (11.7-14.0) Prothromb Time International Ratio 2.2 (0.8-1.1) Sodium Level 143 mmol/L (136-145) Potassium Level 3.2 mmol/L (3.5-5.1) Chloride Level 103 mmol/L (98-107) Carbon Dioxide Level 31 mmol/L (21-32) Anion Gap 9 (6-14) Blood Urea Nitrogen 17 mg/dL (7-20) Creatinine 1.6 mg/dL (0.6-1.0) Estimated GFR (Cockcroft-Gault) 37.3 Glucose Level 117 mg/dL (70-99) Calcium Level 6.5 mg/dL (8.5-10.1) ALAN ARGUELLO MD Dec 27, 2016 09:30
[2016-12-27] MEDS: CALCIUM GLUCONATE 1,000 MG/10 ML VIAL. IVP SCH ×3 (10:18→16:02)
--- NOTE | 2016-12-27 10:20 | PDOC ---
PULMONARY PROGRESS NOTES Subjective no soa Vitals Vital Signs Date Time Temp Pulse Resp B/P (MAP) Pulse Ox O2 Delivery O2 Flow Rate FiO2 12/27/16 08:31 103 148/91 12/27/16 08:00 Nasal Cannula 3.0 12/27/16 07:31 85 12/27/16 07:00 97.8 20 97.8 General: Alert, No acute distress Lungs: Clear Cardiovascular: S1 Abdomen: Soft, Other Extremities: Other (left BKA) Skin: Warm Labs Laboratory Tests Test 12/25/16 16:10 12/25/16 16:53 12/25/16 17:55 12/25/16 21:00 White Blood Count 15.1 x10^3/uL (4.0-11.0) Red Blood Count 4.40 x10^6/uL (3.50-5.40) Hemoglobin 12.8 g/dL (12.0-15.5) Hematocrit 40.4 % (36.0-47.0) Mean Corpuscular Volume 92 fL (79-100) Mean Corpuscular Hemoglobin 29 pg (25-35) Mean Corpuscular Hemoglobin Concent 32 g/dL (31-37) Red Cell Distribution Width 14.4 % (11.5-14.5) Platelet Count 555 x10^3/uL (140-400) Neutrophils (%) (Auto) 77 % (31-73) Lymphocytes (%) (Auto) 15 % (24-48) Monocytes (%) (Auto) 7 % (0-9) Eosinophils (%) (Auto) 0 % (0-3) Basophils (%) (Auto) 0 % (0-3) Neutrophils # (Auto) 11.6 x10^3uL (1.8-7.7) Lymphocytes # (Auto) 2.3 x10^3/uL (1.0-4.8) Monocytes # (Auto) 1.1 x10^3/uL (0.0-1.1) Eosinophils # (Auto) 0.0 x10^3/uL (0.0-0.7) Basophils # (Auto) 0.1 x10^3/uL (0.0-0.2) Segmented Neutrophils % 72 % (35-66) Band Neutrophils % 1 % (0-9) Lymphocytes % 12 % (24-48) Atypical Lymphocytes % (Manual) 1 % (0-0) Monocytes % 4 % (0-10) Eosinophils % 1 % (0-5) Metamyelocytes % 2 % (0-0) Myelocytes % 7 % (0-0) Nucleated Red Blood Cells 2 Platelet Estimate Increased (ADEQUATE) Large Platelets Present Polychromasia Present Poikilocytosis Slight Anisocytosis Slight Macrocytosis Slight Ovalocytes Present [place] Bodies Present Schistocytes Occ Sodium Level 138 mmol/L (136-145) Potassium Level 3.2 mmol/L (3.5-5.1) Chloride Level 94 mmol/L (98-107) Carbon Dioxide Level 29 mmol/L (21-32) Anion Gap 15 (6-14) Blood Urea Nitrogen 30 mg/dL (7-20) Creatinine 3.1 mg/dL (0.6-1.0) Estimated GFR (Cockcroft-Gault) 17.4 BUN/Creatinine Ratio 10 (6-20) Glucose Level 223 mg/dL (70-99) Calcium Level 7.0 mg/dL (8.5-10.1) Total Bilirubin 0.3 mg/dL (0.2-1.0) Aspartate Amino Transf (AST/SGOT) 33 U/L (15-37) Alanine Aminotransferase (ALT/SGPT) 44 U/L (14-59) Alkaline Phosphatase 358 U/L (46-116) Troponin I Quantitative 0.097 ng/mL (0.000-0.055) Total Protein 6.8 g/dL (6.4-8.2) Albumin 3.4 g/dL (3.4-5.0) Albumin/Globulin Ratio 1.0 (1.0-1.7) Thyroid Stimulating Hormone (TSH) 1.878 uIU/mL (0.358-3.74) Prothrombin Time 15.3 SEC (11.7-14.0) Prothromb Time International Ratio 1.3 (0.8-1.1) Activated Partial Thromboplast Time 24 SEC (24-38) Lactic Acid Level 3.6 mmol/L (0.4-2.0) Urine Collection Type Unknown Urine Color Yellow Urine Clarity Clear Urine pH 6.0 Urine Specific [place] 1.010 Urine Protein Negative mg/dL (NEG-TRACE) Urine Glucose (UA) Negative mg/dL (NEG) Urine Ketones (Stick) Negative mg/dL (NEG) Urine Blood Negative (NEG) Urine Nitrite Negative (NEG) Urine Bilirubin Negative (NEG) Urine Urobilinogen Dipstick 0.2 mg/dL (0.2 mg/dL) Urine Leukocyte Esterase Negative (NEG) Urine RBC Occ /HPF (0-2) Urine WBC 1-4 /HPF (0-4) Urine Squamous Epithelial Cells Few /LPF Urine Transitional Epithelial Cells Occ /LPF Urine Renal Epithelial Cells Occ /LPF Urine Bacteria 0 /HPF (0-FEW) Urine Hyaline Casts Occasional /HPF Urine Mucus Slight /LPF Test 12/25/16 22:55 12/26/16 03:35 12/26/16 07:12 12/26/16 10:00 Troponin I Quantitative 0.092 ng/mL (0.000-0.055) 0.115 ng/mL (0.000-0.055) White Blood Count 15.6 x10^3/uL (4.0-11.0) Red Blood Count 3.68 x10^6/uL (3.50-5.40) Hemoglobin 10.9 g/dL (12.0-15.5) Hematocrit 33.8 % (36.0-47.0) Mean Corpuscular Volume 92 fL (79-100) Mean Corpuscular Hemoglobin 30 pg (25-35) Mean Corpuscular Hemoglobin Concent 32 g/dL (31-37) Red Cell Distribution Width 14.7 % (11.5-14.5) Platelet Count 502 x10^3/uL (140-400) Neutrophils (%) (Auto) 76 % (31-73) Lymphocytes (%) (Auto) 15 % (24-48) Monocytes (%) (Auto) 9 % (0-9) Eosinophils (%) (Auto) 0 % (0-3) Basophils (%) (Auto) 0 % (0-3) Neutrophils # (Auto) 11.9 x10^3uL (1.8-7.7) Lymphocytes # (Auto) 2.3 x10^3/uL (1.0-4.8) Monocytes # (Auto) 1.4 x10^3/uL (0.0-1.1) Eosinophils # (Auto) 0.0 x10^3/uL (0.0-0.7) Basophils # (Auto) 0.0 x10^3/uL (0.0-0.2) Prothrombin Time 16.1 SEC (11.7-14.0) Prothromb Time International Ratio 1.4 (0.8-1.1) Heparin Anti-Xa Act, Unfractionated 0.51 IU/mL (0.30-0.70) > 1.10 IU/mL (0.30-0.70) Sodium Level 144 mmol/L (136-145) Potassium Level 3.2 mmol/L (3.5-5.1) Chloride Level 101 mmol/L (98-107) Carbon Dioxide Level 32 mmol/L (21-32) Anion Gap 11 (6-14) Blood Urea Nitrogen 24 mg/dL (7-20) Creatinine 2.3 mg/dL (0.6-1.0) Estimated GFR (Cockcroft-Gault) 24.6 BUN/Creatinine Ratio 10 (6-20) Glucose Level 139 mg/dL (70-99) Hemoglobin A1c 8.3 % (4.8-5.6) Calcium Level 6.5 mg/dL (8.5-10.1) Ionized Calcium 0.76 mmol/L (1.13-1.32) Total Bilirubin 0.3 mg/dL (0.2-1.0) Aspartate Amino Transf (AST/SGOT) 29 U/L (15-37) Alanine Aminotransferase (ALT/SGPT) 33 U/L (14-59) Alkaline Phosphatase 274 U/L (46-116) Total Protein 5.5 g/dL (6.4-8.2) Albumin 2.7 g/dL (3.4-5.0) Albumin/Globulin Ratio 1.0 (1.0-1.7) Glucose (Fingerstick) 165 mg/dL (70-99) Test 12/26/16 11:55 12/26/16 16:20 12/26/16 19:00 12/26/16 23:08 Glucose (Fingerstick) 210 mg/dL (70-99) 116 mg/dL (70-99) 131 mg/dL (70-99) Heparin Anti-Xa Act, Unfractionated 1.02 IU/mL (0.30-0.70) Test 12/27/16 01:00 12/27/16 06:10 12/27/16 07:34 Heparin Anti-Xa Act, Unfractionated 0.64 IU/mL (0.30-0.70) 0.54 IU/mL (0.30-0.70) Prothrombin Time 23.2 SEC (11.7-14.0) Prothromb Time International Ratio 2.2 (0.8-1.1) Sodium Level 143 mmol/L (136-145) Potassium Level 3.2 mmol/L (3.5-5.1) Chloride Level 103 mmol/L (98-107) Carbon Dioxide Level 31 mmol/L (21-32) Anion Gap 9 (6-14) Blood Urea Nitrogen 17 mg/dL (7-20) Creatinine 1.6 mg/dL (0.6-1.0) Estimated GFR (Cockcroft-Gault) 37.3 Glucose Level 117 mg/dL (70-99) Calcium Level 6.5 mg/dL (8.5-10.1) Magnesium Level 0.5 mg/dL (1.8-2.4) Albumin 2.6 g/dL (3.4-5.0) Glucose (Fingerstick) 144 mg/dL (70-99) Laboratory Tests Test 12/26/16 11:55 12/26/16 16:20 12/26/16 19:00 12/26/16 23:08 Glucose (Fingerstick) 210 mg/dL (70-99) 116 mg/dL (70-99) 131 mg/dL (70-99) Heparin Anti-Xa Act, Unfractionated 1.02 IU/mL (0.30-0.70) Test 12/27/16 01:00 12/27/16 06:10 12/27/16 07:34 Heparin Anti-Xa Act, Unfractionated 0.64 IU/mL (0.30-0.70) 0.54 IU/mL (0.30-0.70) Prothrombin Time 23.2 SEC (11.7-14.0) Prothromb Time International Ratio 2.2 (0.8-1.1) Sodium Level 143 mmol/L (136-145) Potassium Level 3.2 mmol/L (3.5-5.1) Chloride Level 103 mmol/L (98-107) Carbon Dioxide Level 31 mmol/L (21-32) Anion Gap 9 (6-14) Blood Urea Nitrogen 17 mg/dL (7-20) Creatinine 1.6 mg/dL (0.6-1.0) Estimated GFR (Cockcroft-Gault) 37.3 Glucose Level 117 mg/dL (70-99) Calcium Level 6.5 mg/dL (8.5-10.1) Magnesium Level 0.5 mg/dL (1.8-2.4) Albumin 2.6 g/dL (3.4-5.0) Glucose (Fingerstick) 144 mg/dL (70-99) Medications Active Scripts Medications Dose Route/Sig Max Daily Dose Days Date Category Hydrocodone-Apap 5-325 (Hydrocodone Bit/Acetaminophen) 1 Each Tablet 1-2 Tab PO PRN Q4HRS PRN 10/29/16 Rx Hydrocodone-Apap 5-325 (Hydrocodone Bit/Acetaminophen) 1 Each Tablet 2 Tab PO PRN Q4HRS PRN 10/25/16 Reported [place] 5-325 Tablet (Acetaminophen/Hydrocodone Bitart) 1 Each Tablet 1-2 Tab PO Q4-6HRS 09/05/16 Rx Venlafaxine Hcl Er (Venlafaxine Hcl) 75 Mg Cap.er.24h 1 Cap PO DAILY 09/02/16 Reported Lasix (Furosemide) 40 Mg Tablet 1 Tab PO DAILY 12/22/14 Reported Xanax (Alprazolam) 0.5 Mg Tablet 0.25 Mg PO HS PRN PRN 12/21/14 Reported Tramadol-Acetaminophn 37.5-325 (Tramadol Hcl/Acetaminophen) 1 Each Tablet 1 Tab PO Q6HRS 12/21/14 Reported Reglan (Metoclopramide Hcl) 10 Mg Tablet 5 Mg PO BIDACBL 12/21/14 Reported Pantoprazole Sodium 40 Mg Tablet.dr 40 Tab PO DAILY 12/21/14 Reported Carvedilol 12.5 Mg Tablet 12.5 Mg PO BIDWMEALS 12/21/14 Reported Losartan Potassium 50 Mg Tablet 100 Mg PO DAILY 12/21/14 Reported Miralax (Polyethylene Glycol 3350) 17 Gm Powd.pack 17 Gm PO PRN DAILY 01/11/13 Reported Aspir 81 (Aspirin) 81 Mg Tablet.dr 81 Mg PO DAILY 01/11/13 Reported Klor-Con (Potassium Chloride) 20 Meq Packet 10 Meq PO DAILY 01/11/13 Reported Zocor (Simvastatin) 20 Mg Tablet 20 Mg PO DAILY 01/11/13 Reported Impression . 1. Acute hypoxic respiratory failure secondary to left lower lobe pulmonary embolism. 2. Abnormal V/Q scan with mismatch defect in the left lower lobe, consistent with high probability for pulmonary embolism. 3. Pancreatic cancer with hypercoagulable state, contributing to pulmonary embolism. 4. Possible underlying chronic obstructive pulmonary disease. 5. Left below-knee amputation. 6. History of bilateral lung nodules, some of them were cavitating in October. No change on follow up CT chest. These are likely metastatic nodules. Plan . 1. Continue with current anticoagulation. 2. The patient would need lifelong anticoagulation until her cancer is resolved. 3. Continue to wean oxygen. 4. Positive venous Dopplers of lower extremity on the right for DVT. 5. Follow Oncology recommendations. FELIPA DOWNING MD Dec 27, 2016 10:20
[2016-12-27 11:00] VITALS: BP 152/87
[2016-12-27] MEDS: AMINO AC 3%/ELECTROLYTE/GLYCER 1,000 ML IV SCH ×2 (11:21→22:49)
[2016-12-27] MEDS: POTASSIUM CHLORIDE 20 MEQ TABLET.ER. PO SCH ×2 (11:22→17:10)
--- NOTE | 2016-12-27 13:05 | PDOC ---
PROGRESS NOTES Subjective Subjective No cardiac complaints today. Objective Objective Vital Signs Date Time Temp Pulse Resp B/P (MAP) Pulse Ox O2 Delivery O2 Flow Rate FiO2 12/27/16 11:22 100 Nasal Cannula 3.0 12/27/16 11:00 98.7 86 20 152/87 (108) 98.7 Physical Exam Physical Exam No significant changes in cardiac exam Assessment Assessment Patient compensated cardiac-ham. I do not believe that she's had a non-STEMI. Agree with present plan. Problems Medical Problems: (1) Elevated troponin Status: Acute (2) Leukocytosis Status: Acute Comment Review of Relevant I have reviewed the following items chet (where applicable) has been applied. Labs Laboratory Tests Test 12/25/16 16:10 12/25/16 16:53 12/25/16 17:55 12/25/16 21:00 White Blood Count 15.1 x10^3/uL (4.0-11.0) Red Blood Count 4.40 x10^6/uL (3.50-5.40) Hemoglobin 12.8 g/dL (12.0-15.5) Hematocrit 40.4 % (36.0-47.0) Mean Corpuscular Volume 92 fL (79-100) Mean Corpuscular Hemoglobin 29 pg (25-35) Mean Corpuscular Hemoglobin Concent 32 g/dL (31-37) Red Cell Distribution Width 14.4 % (11.5-14.5) Platelet Count 555 x10^3/uL (140-400) Neutrophils (%) (Auto) 77 % (31-73) Lymphocytes (%) (Auto) 15 % (24-48) Monocytes (%) (Auto) 7 % (0-9) Eosinophils (%) (Auto) 0 % (0-3) Basophils (%) (Auto) 0 % (0-3) Neutrophils # (Auto) 11.6 x10^3uL (1.8-7.7) Lymphocytes # (Auto) 2.3 x10^3/uL (1.0-4.8) Monocytes # (Auto) 1.1 x10^3/uL (0.0-1.1) Eosinophils # (Auto) 0.0 x10^3/uL (0.0-0.7) Basophils # (Auto) 0.1 x10^3/uL (0.0-0.2) Segmented Neutrophils % 72 % (35-66) Band Neutrophils % 1 % (0-9) Lymphocytes % 12 % (24-48) Atypical Lymphocytes % (Manual) 1 % (0-0) Monocytes % 4 % (0-10) Eosinophils % 1 % (0-5) Metamyelocytes % 2 % (0-0) Myelocytes % 7 % (0-0) Nucleated Red Blood Cells 2 Platelet Estimate Increased (ADEQUATE) Large Platelets Present Polychromasia Present Poikilocytosis Slight Anisocytosis Slight Macrocytosis Slight Ovalocytes Present Anderson-Loring Bodies Present Schistocytes Occ Sodium Level 138 mmol/L (136-145) Potassium Level 3.2 mmol/L (3.5-5.1) Chloride Level 94 mmol/L (98-107) Carbon Dioxide Level 29 mmol/L (21-32) Anion Gap 15 (6-14) Blood Urea Nitrogen 30 mg/dL (7-20) Creatinine 3.1 mg/dL (0.6-1.0) Estimated GFR (Cockcroft-Gault) 17.4 BUN/Creatinine Ratio 10 (6-20) Glucose Level 223 mg/dL (70-99) Calcium Level 7.0 mg/dL (8.5-10.1) Total Bilirubin 0.3 mg/dL (0.2-1.0) Aspartate Amino Transf (AST/SGOT) 33 U/L (15-37) Alanine Aminotransferase (ALT/SGPT) 44 U/L (14-59) Alkaline Phosphatase 358 U/L (46-116) Troponin I Quantitative 0.097 ng/mL (0.000-0.055) Total Protein 6.8 g/dL (6.4-8.2) Albumin 3.4 g/dL (3.4-5.0) Albumin/Globulin Ratio 1.0 (1.0-1.7) Thyroid Stimulating Hormone (TSH) 1.878 uIU/mL (0.358-3.74) Prothrombin Time 15.3 SEC (11.7-14.0) Prothromb Time International Ratio 1.3 (0.8-1.1) Activated Partial Thromboplast Time 24 SEC (24-38) Lactic Acid Level 3.6 mmol/L (0.4-2.0) Urine Collection Type Unknown Urine Color Yellow Urine Clarity Clear Urine pH 6.0 Urine Specific [place] 1.010 Urine Protein Negative mg/dL (NEG-TRACE) Urine Glucose (UA) Negative mg/dL (NEG) Urine Ketones (Stick) Negative mg/dL (NEG) Urine Blood Negative (NEG) Urine Nitrite Negative (NEG) Urine Bilirubin Negative (NEG) Urine Urobilinogen Dipstick 0.2 mg/dL (0.2 mg/dL) Urine Leukocyte Esterase Negative (NEG) Urine RBC Occ /HPF (0-2) Urine WBC 1-4 /HPF (0-4) Urine Squamous Epithelial Cells Few /LPF Urine Transitional Epithelial Cells Occ /LPF Urine Renal Epithelial Cells Occ /LPF Urine Bacteria 0 /HPF (0-FEW) Urine Hyaline Casts Occasional /HPF Urine Mucus Slight /LPF Test 12/25/16 22:55 12/26/16 03:35 12/26/16 07:12 12/26/16 10:00 Troponin I Quantitative 0.092 ng/mL (0.000-0.055) 0.115 ng/mL (0.000-0.055) White Blood Count 15.6 x10^3/uL (4.0-11.0) Red Blood Count 3.68 x10^6/uL (3.50-5.40) Hemoglobin 10.9 g/dL (12.0-15.5) Hematocrit 33.8 % (36.0-47.0) Mean Corpuscular Volume 92 fL (79-100) Mean Corpuscular Hemoglobin 30 pg (25-35) Mean Corpuscular Hemoglobin Concent 32 g/dL (31-37) Red Cell Distribution Width 14.7 % (11.5-14.5) Platelet Count 502 x10^3/uL (140-400) Neutrophils (%) (Auto) 76 % (31-73) Lymphocytes (%) (Auto) 15 % (24-48) Monocytes (%) (Auto) 9 % (0-9) Eosinophils (%) (Auto) 0 % (0-3) Basophils (%) (Auto) 0 % (0-3) Neutrophils # (Auto) 11.9 x10^3uL (1.8-7.7) Lymphocytes # (Auto) 2.3 x10^3/uL (1.0-4.8) Monocytes # (Auto) 1.4 x10^3/uL (0.0-1.1) Eosinophils # (Auto) 0.0 x10^3/uL (0.0-0.7) Basophils # (Auto) 0.0 x10^3/uL (0.0-0.2) Prothrombin Time 16.1 SEC (11.7-14.0) Prothromb Time International Ratio 1.4 (0.8-1.1) Heparin Anti-Xa Act, Unfractionated 0.51 IU/mL (0.30-0.70) > 1.10 IU/mL (0.30-0.70) Sodium Level 144 mmol/L (136-145) Potassium Level 3.2 mmol/L (3.5-5.1) Chloride Level 101 mmol/L (98-107) Carbon Dioxide Level 32 mmol/L (21-32) Anion Gap 11 (6-14) Blood Urea Nitrogen 24 mg/dL (7-20) Creatinine 2.3 mg/dL (0.6-1.0) Estimated GFR (Cockcroft-Gault) 24.6 BUN/Creatinine Ratio 10 (6-20) Glucose Level 139 mg/dL (70-99) Hemoglobin A1c 8.3 % (4.8-5.6) Calcium Level 6.5 mg/dL (8.5-10.1) Ionized Calcium 0.76 mmol/L (1.13-1.32) Total Bilirubin 0.3 mg/dL (0.2-1.0) Aspartate Amino Transf (AST/SGOT) 29 U/L (15-37) Alanine Aminotransferase (ALT/SGPT) 33 U/L (14-59) Alkaline Phosphatase 274 U/L (46-116) Total Protein 5.5 g/dL (6.4-8.2) Albumin 2.7 g/dL (3.4-5.0) Albumin/Globulin Ratio 1.0 (1.0-1.7) Glucose (Fingerstick) 165 mg/dL (70-99) Test 12/26/16 11:55 12/26/16 16:20 12/26/16 19:00 12/26/16 23:08 Glucose (Fingerstick) 210 mg/dL (70-99) 116 mg/dL (70-99) 131 mg/dL (70-99) Heparin Anti-Xa Act, Unfractionated 1.02 IU/mL (0.30-0.70) Test 12/27/16 01:00 12/27/16 06:10 12/27/16 07:34 12/27/16 11:30 Heparin Anti-Xa Act, Unfractionated 0.64 IU/mL (0.30-0.70) 0.54 IU/mL (0.30-0.70) Prothrombin Time 23.2 SEC (11.7-14.0) Prothromb Time International Ratio 2.2 (0.8-1.1) Sodium Level 143 mmol/L (136-145) Potassium Level 3.2 mmol/L (3.5-5.1) Chloride Level 103 mmol/L (98-107) Carbon Dioxide Level 31 mmol/L (21-32) Anion Gap 9 (6-14) Blood Urea Nitrogen 17 mg/dL (7-20) Creatinine 1.6 mg/dL (0.6-1.0) Estimated GFR (Cockcroft-Gault) 37.3 Glucose Level 117 mg/dL (70-99) Calcium Level 6.5 mg/dL (8.5-10.1) Magnesium Level 0.5 mg/dL (1.8-2.4) Albumin 2.6 g/dL (3.4-5.0) Glucose (Fingerstick) 144 mg/dL (70-99) 198 mg/dL (70-99) Laboratory Tests Test 12/26/16 16:20 12/26/16 19:00 12/26/16 23:08 12/27/16 01:00 Glucose (Fingerstick) 116 mg/dL (70-99) 131 mg/dL (70-99) Heparin Anti-Xa Act, Unfractionated 1.02 IU/mL (0.30-0.70) 0.64 IU/mL (0.30-0.70) Test 12/27/16 06:10 12/27/16 07:34 12/27/16 11:30 Prothrombin Time 23.2 SEC (11.7-14.0) Prothromb Time International Ratio 2.2 (0.8-1.1) Heparin Anti-Xa Act, Unfractionated 0.54 IU/mL (0.30-0.70) Sodium Level 143 mmol/L (136-145) Potassium Level 3.2 mmol/L (3.5-5.1) Chloride Level 103 mmol/L (98-107) Carbon Dioxide Level 31 mmol/L (21-32) Anion Gap 9 (6-14) Blood Urea Nitrogen 17 mg/dL (7-20) Creatinine 1.6 mg/dL (0.6-1.0) Estimated GFR (Cockcroft-Gault) 37.3 Glucose Level 117 mg/dL (70-99) Calcium Level 6.5 mg/dL (8.5-10.1) Magnesium Level 0.5 mg/dL (1.8-2.4) Albumin 2.6 g/dL (3.4-5.0) Glucose (Fingerstick) 144 mg/dL (70-99) 198 mg/dL (70-99) Microbiology 12/25/16 Blood Culture - Preliminary, Resulted NO GROWTH AFTER 1 DAY Medications Current Medications Sodium Chloride 1,000 ml @ 999 mls/hr Q1H1M IV Last administered on 18:03; Start 12/25/16 at 16:09; Stop 12/25/16 at 23:50; Status DC Ondansetron HCl (Zofran) 4 mg PRN Q8HRS PRN IV NAUSEA/VOMITING; Start at 17:30; Stop 12/26/16 at 17:29; Status DC Sodium Chloride 1,000 ml @ 125 mls/hr Q8H IV Last administered on 12/25/16 20:54; Start 12/25/16 at 17:18; Stop 12/26/16 at 09:51; Status DC Heparin Sodium/ Dextrose 500 ml @ 0 mls/hr CONT PRN IV SEE I/O RECORD Last administered on 12/26/16 21:16; Start 12/25/16 at 18:45 Heparin Sodium (Porcine) (Heparin Sodium) 2,150 unit PRN Q6HRS PRN IV FOR UFH LEVEL LESS THAN 0.2; Start 12/25/16 at 18:45 Heparin Sodium (Porcine) (Heparin Sodium) 1,100 unit PRN Q6HRS PRN IV FOR UFH LEVEL 0.2 - 0.29; Start 12/25/16 at 18:45 Warfarin Sodium (Coumadin Per Pharmacy) 1 each PRN DAILY PRN MC PER PROTOCOL Last administered on 12/26/16 11:01; Start 12/25/16 at 18:45 Potassium Chloride (Klor-Con) 40 meq 1X ONCE PO Last administered on 19:24; Start 12/25/16 at 18:45; Stop 12/25/16 at 18:46; Status DC Alprazolam (Xanax) 0.25 mg Q8HRS PRN PO ANXIETY Last administered on 21:34; Start 12/25/16 at 18:45 Aspirin (Ecotrin) 81 mg DAILY PO Last administered on 12/27/16 08:31; Start 12/26/16 at 09:00 Carvedilol (Coreg) 12.5 mg BIDWMEALS PO Last administered on 12/27/16 08:31; Start 12/26/16 at 08:00 Furosemide (Lasix) 40 mg DAILY PO Last administered on 12/27/16 08:31; Start 12/26/16 at 09:00; Stop 12/27/16 at 09:28; Status DC Acetaminophen/ Hydrocodone Bitart (Lortab 5/325) 2 tab PRN Q4HRS PRN PO PAIN Last administered on 12/27/16 11:22; Start 12/25/16 at 18:45 Metoclopramide HCl (Reglan) 5 mg BIDACBL PO Last administered on 12/27/16 11: 22; Start 12/26/16 at 07:30 Pantoprazole Sodium (Protonix) 40 mg DAILYAC PO Last administered on 08:32; Start 12/26/16 at 07:30 Polyethylene Glycol (miraLAX PACKET) 17 gm PRN DAILY PRN PO CONSTIPATION; Start 12/25/16 at 18:45 Simvastatin (Zocor) 20 mg QHS PO Last administered on 12/26/16 21:14; Start 12/25/16 at 21:00 Potassium Chloride (Klor-Con) 10 meq DAILYWBKFT PO Last administered on 08:32; Start 12/26/16 at 08:00 Venlafaxine HCl (Effexor Xr) 75 mg DAILY PO Last administered on 12/27/16 08: 30; Start 12/26/16 at 09:00 Warfarin Sodium (Coumadin) 5 mg 1X WARF ONCE PO Last administered on 19:25; Start 12/25/16 at 19:00; Stop 12/25/16 at 19:01; Status DC Insulin Aspart (NovoLOG) 0-7 UNITS TIDWMEALS SQ Last administered on 12:36; Start 12/26/16 at 08:00 Dextrose (Dextrose 50%-Water Syringe) 12.5 gm PRN Q15MIN PRN IV SEE COMMENTS; Start 12/25/16 at 18:45 Docusate Sodium (Colace) 100 mg PRN DAILY PRN PO CONSTIPATION; Start 12/25/16 at 19:00 Potassium Chloride (Klor-Con) 40 meq 1X ONCE PO Last administered on 11:33; Start 12/26/16 at 10:00; Stop 12/26/16 at 10:01; Status DC Potassium Chloride/Sodium Chloride 1,000 ml @ 75 mls/hr 1X ONCE IV Last administered on 12/26/16 11:33; Start 12/26/16 at 10:00; Stop 12/26/16 at 23 :19; Status DC Warfarin Sodium (Coumadin) 5 mg 1X WARF ONCE PO Last administered on 16:46; Start 12/26/16 at 16:00; Stop 12/26/16 at 16:01; Status DC Potassium Chloride (Klor-Con) 20 meq BIDACLD PO Last administered on 11:22; Start 12/27/16 at 11:30; Stop 12/27/16 at 22:00 Amino Acids/ Glycerin/ Electrolytes 1,000 ml @ 80 mls/hr [id number] IV Last administered on 12/27/16 11:21; Start 12/27/16 at 10:00 Magnesium Sulfate/ Dextrose 50 ml @ 25 mls/hr PRN DAILY PRN IV for Mag < 1.7 on am labs; Start 12/27/16 at 09:30 Calcium Gluconate (Calcium Gluconate) 1,000 mg Q2H IVP Last administered on 12:27; Start 12/27/16 at 10:00; Stop 12/27/16 at 14:01 Active Scripts Active Hydrocodone-Apap 5-325 (Hydrocodone Bit/Acetaminophen) 1 Each Tablet 1-2 Tab PO PRN Q4HRS PRN [place] 5-325 Tablet (Acetaminophen/Hydrocodone Bitart) 1 Each Tablet 1-2 Tab PO Q4-6HRS Reported Hydrocodone-Apap 5-325 (Hydrocodone Bit/Acetaminophen) 1 Each Tablet 2 Tab PO PRN Q4HRS PRN Venlafaxine Hcl Er (Venlafaxine Hcl) 75 Mg Cap.er.24h 1 Cap PO DAILY Lasix (Furosemide) 40 Mg Tablet 1 Tab PO DAILY Xanax (Alprazolam) 0.5 Mg Tablet 0.25 Mg PO HS PRN PRN Tramadol-Acetaminophn 37.5-325 (Tramadol Hcl/Acetaminophen) 1 Each Tablet 1 Tab PO Q6HRS Reglan (Metoclopramide Hcl) 10 Mg Tablet 5 Mg PO BIDACBL Pantoprazole Sodium 40 Mg Tablet.dr 40 Tab PO DAILY Carvedilol 12.5 Mg Tablet 12.5 Mg PO BIDWMEALS Losartan Potassium 50 Mg Tablet 100 Mg PO DAILY Miralax (Polyethylene Glycol 3350) 17 Gm Powd.pack 17 Gm PO PRN DAILY Aspir 81 (Aspirin) 81 Mg Tablet.dr 81 Mg PO DAILY Klor-Con (Potassium Chloride) 20 Meq Packet 10 Meq PO DAILY Zocor (Simvastatin) 20 Mg Tablet 20 Mg PO DAILY Vitals/I & O Vital Sign - Last 24 Hours 12/26/16 12/26/16 12/26/16 12/26/16 14:25 16:48 19:15 20:00 Temp 97.6 98.4 97.6 98.4 Pulse 93 93 94 Resp 20 18 B/P (MAP) 103/61 (75) 103/61 108/58 (75) Pulse Ox 96 91 O2 Delivery Nasal Cannula Room Air Nasal Cannula O2 Flow Rate 3.0 3.0 12/26/16 12/27/16 12/27/16 12/27/16 23:50 03:00 06:30 07:00 Temp 98.4 97.7 97.8 98.4 97.7 97.8 Pulse 95 90 103 Resp 18 20 20 B/P (MAP) 127/71 (89) 157/79 (105) 148/91 (110) Pulse Ox 96 85 99 O2 Delivery Room Air Nasal Cannula Nasal Cannula Nasal Cannula O2 Flow Rate 3.0 3.0 3.0 12/27/16 12/27/16 12/27/16 12/27/16 07:31 08:00 08:31 11:00 Temp 98.7 98.7 Pulse 103 86 Resp 20 B/P (MAP) 148/91 152/87 (108) Pulse Ox 85 100 O2 Delivery Nasal Cannula Nasal Cannula Nasal Cannula O2 Flow Rate 3.0 3.0 3.0 12/27/16 11:22 Pulse Ox 100 O2 Delivery Nasal Cannula O2 Flow Rate 3.0 YVONNE WOODARD MD Dec 27, 2016 13:04
[2016-12-27] MEDS ORDERED: ANTI-COAG MONITOR BY PHARMACY. MC PRN (14:00)
[2016-12-27 15:00] VITALS: BP 106/41
[2016-12-27] MEDS ORDERED: WARFARIN 3 MG TABLET. PO ONE (16:00)
[2016-12-27 19:00] VITALS: BP 118/63
[2016-12-27] MEDS: ALPRAZolam 0.5 MG TABLET PO PRN (20:36)
[2016-12-27] MEDS: SIMVASTATIN 20 MG TABLET PO SCH (20:36)
[2016-12-27 22:12] LABS: PTH INTACT 120 pg/mL (15-65)
[2016-12-27 23:09] VITALS: BP 138/68
[2016-12-28 03:10] VITALS: BP 141/84
[2016-12-28 07:00] VITALS: BP 194/95
[2016-12-28] MEDS: VENLAFAXINE XR 37.5 MG CAP.ER.24H. PO SCH (07:49)
[2016-12-28] MEDS: ASPIRIN ENTERIC COATED 81 MG TABLET.DR. PO SCH (07:49)
[2016-12-28] MEDS: METOCLOPRAMIDE 10 MG TABLET. PO SCH ×2 (07:50→12:09)
[2016-12-28] MEDS: CARVEDILOL 12.5 MG TABLET. PO SCH ×2 (07:50→17:25)
[2016-12-28] MEDS: PANTOPRAZOLE 40 MG TABLET.DR. PO SCH (07:50)
[2016-12-28] MEDS: POTASSIUM CHLORIDE 10 MEQ TABLET.ER. PO SCH (07:51)
[2016-12-28] MEDS: INSULIN ASPART 300 UNITS/3 ML INSULN.PEN SQ SCH ×3 (08:06→17:35)
[2016-12-28] MEDS: HYDROcodone/APAP 5/325MG 1 TAB TABLET PO PRN (08:07)
[2016-12-28 08:36] LABS: BASO # 0.1 x10^3/uL (0.0-0.2); BASO % 1 % (0-3); EOS % 0 % (0-3); HEMATOCRIT 31.3 % (36.0-47.0); HEMOGLOBIN 10.1 g/dL (12.0-15.5); LYMPH # 2.2 x10^3/uL (1.0-4.8); LYMPH % 11 % (24-48); MEAN CORPUSCULAR HEMOGLOBIN 29 pg (25-35); MEAN CORPUSCULAR HGB CONC 32 g/dL (31-37); MEAN CORPUSCULAR VOLUME 91 fL (79-100); MONO % 11 % (0-9); NEUT % 77 % (31-73); PLATELET COUNT 502 x10^3/uL (140-400); RED BLOOD COUNT 3.44 x10^6/uL (3.50-5.40); RED CELL DISTRIBUTION WIDTH 15.3 % (11.5-14.5); WHITE BLOOD COUNT 19.1 x10^3/uL (4.0-11.0)
[2016-12-28 08:53] LABS: INR 2.7 (0.8-1.1); PROTHROMBIN TIME PATIENT 26.8 SEC (11.7-14.0)
[2016-12-28 08:57] LABS: ALBUMIN 2.3 g/dL (3.4-5.0); CALCIUM 7.7 mg/dL (8.5-10.1); CREATININE 1.4 mg/dL (0.6-1.0); GFR 43.6; POTASSIUM 4.6 mmol/L (3.5-5.1)
[2016-12-28 09:03] LABS: MAGNESIUM 0.8 mg/dL (1.8-2.4)
[2016-12-28] MEDS: HEPARIN 25,000UTS/500ML PREMIX 500 ML IV PRN (09:36)
[2016-12-28] MEDS: AMINO AC 3%/ELECTROLYTE/GLYCER 1,000 ML IV SCH (10:55)
[2016-12-28 11:12] VITALS: BP 104/50
--- NOTE | 2016-12-28 12:06 | PDOC ---
PROGRESS NOTES Subjective Subjective Patient feels a little better today. Her blood pressure was up earlier. No new cardiac complaints. Objective Objective Vital Signs Date Time Temp Pulse Resp B/P (MAP) Pulse Ox O2 Delivery O2 Flow Rate FiO2 12/28/16 11:12 97.5 81 16 104/50 (68) 97 Nasal Cannula 3.0 97.5 Physical Exam Physical Exam No significant changes in cardiac exam Assessment Assessment The patient is compensated cardiac ham. I agree with present plan. Problems Medical Problems: (1) Elevated troponin Status: Acute (2) Leukocytosis Status: Acute Comment Review of Relevant I have reviewed the following items chet (where applicable) has been applied. Labs Laboratory Tests Test 12/26/16 16:20 12/26/16 19:00 12/26/16 23:08 12/27/16 01:00 Glucose (Fingerstick) 116 mg/dL (70-99) 131 mg/dL (70-99) Heparin Anti-Xa Act, Unfractionated 1.02 IU/mL (0.30-0.70) 0.64 IU/mL (0.30-0.70) Test 12/27/16 06:10 12/27/16 07:34 12/27/16 11:30 12/27/16 12:50 Prothrombin Time 23.2 SEC (11.7-14.0) Prothromb Time International Ratio 2.2 (0.8-1.1) Heparin Anti-Xa Act, Unfractionated 0.54 IU/mL (0.30-0.70) 0.53 IU/mL (0.30-0.70) Sodium Level 143 mmol/L (136-145) Potassium Level 3.2 mmol/L (3.5-5.1) Chloride Level 103 mmol/L (98-107) Carbon Dioxide Level 31 mmol/L (21-32) Anion Gap 9 (6-14) Blood Urea Nitrogen 17 mg/dL (7-20) Creatinine 1.6 mg/dL (0.6-1.0) Estimated GFR (Non- 31 (>59) Estimated GFR (Cockcroft-Gault) 37.3 Glucose Level 117 mg/dL (70-99) Calcium Level 6.5 mg/dL (8.5-10.1) Magnesium Level 0.5 mg/dL (1.8-2.4) Albumin 2.6 g/dL (3.4-5.0) EGFR 36 (>59) PTH (Intact) Specimen Description Comment (.) Parathyroid Hormone (Intact) 120 pg/mL (15-65) Calcium (PTH Intact) 6.5 mg/dL (8.7-10.3) Creatinine (PTH Intact) 1.53 mg/dL (0.57-1.00) Phosphorus (PTH Intact) 2.7 mg/dL (2.5-4.5) Glucose (Fingerstick) 144 mg/dL (70-99) 198 mg/dL (70-99) Test 12/27/16 16:49 12/27/16 20:27 12/28/16 07:32 12/28/16 08:00 Glucose (Fingerstick) 185 mg/dL (70-99) 207 mg/dL (70-99) 178 mg/dL (70-99) White Blood Count 19.1 x10^3/uL (4.0-11.0) Red Blood Count 3.44 x10^6/uL (3.50-5.40) Hemoglobin 10.1 g/dL (12.0-15.5) Hematocrit 31.3 % (36.0-47.0) Mean Corpuscular Volume 91 fL (79-100) Mean Corpuscular Hemoglobin 29 pg (25-35) Mean Corpuscular Hemoglobin Concent 32 g/dL (31-37) Red Cell Distribution Width 15.3 % (11.5-14.5) Platelet Count 502 x10^3/uL (140-400) Neutrophils (%) (Auto) 77 % (31-73) Lymphocytes (%) (Auto) 11 % (24-48) Monocytes (%) (Auto) 11 % (0-9) Eosinophils (%) (Auto) 0 % (0-3) Basophils (%) (Auto) 1 % (0-3) Neutrophils # (Auto) 14.6 x10^3uL (1.8-7.7) Lymphocytes # (Auto) 2.2 x10^3/uL (1.0-4.8) Monocytes # (Auto) 2.1 x10^3/uL (0.0-1.1) Eosinophils # (Auto) 0.0 x10^3/uL (0.0-0.7) Basophils # (Auto) 0.1 x10^3/uL (0.0-0.2) Prothrombin Time 26.8 SEC (11.7-14.0) Prothromb Time International Ratio 2.7 (0.8-1.1) Heparin Anti-Xa Act, Unfractionated 0.12 IU/mL (0.30-0.70) Sodium Level 136 mmol/L (136-145) Potassium Level 4.6 mmol/L (3.5-5.1) Chloride Level 100 mmol/L (98-107) Carbon Dioxide Level 30 mmol/L (21-32) Anion Gap 6 (6-14) Blood Urea Nitrogen 21 mg/dL (7-20) Creatinine 1.4 mg/dL (0.6-1.0) Estimated GFR (Cockcroft-Gault) 43.6 Glucose Level 191 mg/dL (70-99) Calcium Level 7.7 mg/dL (8.5-10.1) Phosphorus Level 3.0 mg/dL (2.6-4.7) Magnesium Level 0.8 mg/dL (1.8-2.4) Creatine Kinase 157 U/L (26-192) Albumin 2.3 g/dL (3.4-5.0) Test 12/28/16 11:35 Glucose (Fingerstick) 222 mg/dL (70-99) Laboratory Tests Test 12/27/16 12:50 12/27/16 16:49 12/27/16 20:27 12/28/16 07:32 Heparin Anti-Xa Act, Unfractionated 0.53 IU/mL (0.30-0.70) Glucose (Fingerstick) 185 mg/dL (70-99) 207 mg/dL (70-99) 178 mg/dL (70-99) Test 12/28/16 08:00 12/28/16 11:35 White Blood Count 19.1 x10^3/uL (4.0-11.0) Red Blood Count 3.44 x10^6/uL (3.50-5.40) Hemoglobin 10.1 g/dL (12.0-15.5) Hematocrit 31.3 % (36.0-47.0) Mean Corpuscular Volume 91 fL (79-100) Mean Corpuscular Hemoglobin 29 pg (25-35) Mean Corpuscular Hemoglobin Concent 32 g/dL (31-37) Red Cell Distribution Width 15.3 % (11.5-14.5) Platelet Count 502 x10^3/uL (140-400) Neutrophils (%) (Auto) 77 % (31-73) Lymphocytes (%) (Auto) 11 % (24-48) Monocytes (%) (Auto) 11 % (0-9) Eosinophils (%) (Auto) 0 % (0-3) Basophils (%) (Auto) 1 % (0-3) Neutrophils # (Auto) 14.6 x10^3uL (1.8-7.7) Lymphocytes # (Auto) 2.2 x10^3/uL (1.0-4.8) Monocytes # (Auto) 2.1 x10^3/uL (0.0-1.1) Eosinophils # (Auto) 0.0 x10^3/uL (0.0-0.7) Basophils # (Auto) 0.1 x10^3/uL (0.0-0.2) Prothrombin Time 26.8 SEC (11.7-14.0) Prothromb Time International Ratio 2.7 (0.8-1.1) Heparin Anti-Xa Act, Unfractionated 0.12 IU/mL (0.30-0.70) Sodium Level 136 mmol/L (136-145) Potassium Level 4.6 mmol/L (3.5-5.1) Chloride Level 100 mmol/L (98-107) Carbon Dioxide Level 30 mmol/L (21-32) Anion Gap 6 (6-14) Blood Urea Nitrogen 21 mg/dL (7-20) Creatinine 1.4 mg/dL (0.6-1.0) Estimated GFR (Cockcroft-Gault) 43.6 Glucose Level 191 mg/dL (70-99) Calcium Level 7.7 mg/dL (8.5-10.1) Phosphorus Level 3.0 mg/dL (2.6-4.7) Magnesium Level 0.8 mg/dL (1.8-2.4) Creatine Kinase 157 U/L (26-192) Albumin 2.3 g/dL (3.4-5.0) Glucose (Fingerstick) 222 mg/dL (70-99) Microbiology 12/25/16 Blood Culture - Preliminary, Resulted NO GROWTH AFTER 2 DAYS Medications Current Medications Sodium Chloride 1,000 ml @ 999 mls/hr Q1H1M IV Last administered on 18:03; Start 12/25/16 at 16:09; Stop 12/25/16 at 23:50; Status DC Ondansetron HCl (Zofran) 4 mg PRN Q8HRS PRN IV NAUSEA/VOMITING; Start at 17:30; Stop 12/26/16 at 17:29; Status DC Sodium Chloride 1,000 ml @ 125 mls/hr Q8H IV Last administered on 12/25/16 20:54; Start 12/25/16 at 17:18; Stop 12/26/16 at 09:51; Status DC Heparin Sodium/ Dextrose 500 ml @ 0 mls/hr CONT PRN IV SEE I/O RECORD Last administered on 12/28/16 09:36; Start 12/25/16 at 18:45 Heparin Sodium (Porcine) (Heparin Sodium) 2,150 unit PRN Q6HRS PRN IV FOR UFH LEVEL LESS THAN 0.2 Last administered on 12/28/16 09:33; Start 12/25/16 at 18 :45 Heparin Sodium (Porcine) (Heparin Sodium) 1,100 unit PRN Q6HRS PRN IV FOR UFH LEVEL 0.2 - 0.29; Start 12/25/16 at 18:45 Warfarin Sodium (Coumadin Per Pharmacy) 1 each PRN DAILY PRN MC PER PROTOCOL Last administered on 12/27/16 13:55; Start 12/25/16 at 18:45 Potassium Chloride (Klor-Con) 40 meq 1X ONCE PO Last administered on 19:24; Start 12/25/16 at 18:45; Stop 12/25/16 at 18:46; Status DC Alprazolam (Xanax) 0.25 mg Q8HRS PRN PO ANXIETY Last administered on 20:36; Start 12/25/16 at 18:45 Aspirin (Ecotrin) 81 mg DAILY PO Last administered on 12/28/16 07:49; Start 12/26/16 at 09:00 Carvedilol (Coreg) 12.5 mg BIDWMEALS PO Last administered on 12/28/16 07:50; Start 12/26/16 at 08:00 Furosemide (Lasix) 40 mg DAILY PO Last administered on 12/27/16 08:31; Start 12/26/16 at 09:00; Stop 12/27/16 at 09:28; Status DC Acetaminophen/ Hydrocodone Bitart (Lortab 5/325) 2 tab PRN Q4HRS PRN PO PAIN Last administered on 12/28/16 08:07; Start 12/25/16 at 18:45 Metoclopramide HCl (Reglan) 5 mg BIDACBL PO Last administered on 12/28/16 07: 50; Start 12/26/16 at 07:30 Pantoprazole Sodium (Protonix) 40 mg DAILYAC PO Last administered on 07:50; Start 12/26/16 at 07:30 Polyethylene Glycol (miraLAX PACKET) 17 gm PRN DAILY PRN PO CONSTIPATION; Start 12/25/16 at 18:45 Simvastatin (Zocor) 20 mg QHS PO Last administered on 12/27/16 20:36; Start 12/25/16 at 21:00 Potassium Chloride (Klor-Con) 10 meq [id number] PO Last administered on 07:51; Start 12/26/16 at 08:00 Venlafaxine HCl (Effexor Xr) 75 mg DAILY PO Last administered on 12/28/16 07: 49; Start 12/26/16 at 09:00 Warfarin Sodium (Coumadin) 5 mg 1X WARF ONCE PO Last administered on 19:25; Start 12/25/16 at 19:00; Stop 12/25/16 at 19:01; Status DC Insulin Aspart (NovoLOG) 0-7 UNITS TIDWMEALS SQ Last administered on 08:06; Start 12/26/16 at 08:00 Dextrose (Dextrose 50%-Water Syringe) 12.5 gm PRN Q15MIN PRN IV SEE COMMENTS; Start 12/25/16 at 18:45 Docusate Sodium (Colace) 100 mg PRN DAILY PRN PO CONSTIPATION; Start 12/25/16 at 19:00 Potassium Chloride (Klor-Con) 40 meq 1X ONCE PO Last administered on 11:33; Start 12/26/16 at 10:00; Stop 12/26/16 at 10:01; Status DC Potassium Chloride/Sodium Chloride 1,000 ml @ 75 mls/hr 1X ONCE IV Last administered on 12/26/16 11:33; Start 12/26/16 at 10:00; Stop 12/26/16 at 23 :19; Status DC Warfarin Sodium (Coumadin) 5 mg 1X WARF ONCE PO Last administered on 16:46; Start 12/26/16 at 16:00; Stop 12/26/16 at 16:01; Status DC Potassium Chloride (Klor-Con) 20 meq BIDACLD PO Last administered on 17:10; Start 12/27/16 at 11:30; Stop 12/27/16 at 22:00; Status DC Amino Acids/ Glycerin/ Electrolytes 1,000 ml @ 80 mls/hr [id number] IV Last administered on 12/28/16 10:55; Start 12/27/16 at 10:00 Magnesium Sulfate/ Dextrose 50 ml @ 25 mls/hr PRN DAILY PRN IV for Mag < 1.7 on am labs; Start 12/27/16 at 09:30 Calcium Gluconate (Calcium Gluconate) 1,000 mg Q2H IVP Last administered on 16:02; Start 12/27/16 at 10:00; Stop 12/27/16 at 14:01; Status DC Warfarin Sodium (Coumadin) 3 mg 1X WARF ONCE PO Last administered on 17:11; Start 12/27/16 at 16:00; Stop 12/27/16 at 16:01; Status DC Info (Anti-Coagulation Monitoring By Pharmacy) 1 each PRN DAILY PRN MC SEE COMMENTS; Start 12/27/16 at 14:00 Active Scripts Active Hydrocodone-Apap 5-325 (Hydrocodone Bit/Acetaminophen) 1 Each Tablet 1-2 Tab PO PRN Q4HRS PRN [place] 5-325 Tablet (Acetaminophen/Hydrocodone Bitart) 1 Each Tablet 1-2 Tab PO Q4-6HRS Reported Hydrocodone-Apap 5-325 (Hydrocodone Bit/Acetaminophen) 1 Each Tablet 2 Tab PO PRN Q4HRS PRN Venlafaxine Hcl Er (Venlafaxine Hcl) 75 Mg Cap.er.24h 1 Cap PO DAILY Lasix (Furosemide) 40 Mg Tablet 1 Tab PO DAILY Xanax (Alprazolam) 0.5 Mg Tablet 0.25 Mg PO HS PRN PRN Tramadol-Acetaminophn 37.5-325 (Tramadol Hcl/Acetaminophen) 1 Each Tablet 1 Tab PO Q6HRS Reglan (Metoclopramide Hcl) 10 Mg Tablet 5 Mg PO BIDACBL Pantoprazole Sodium 40 Mg Tablet.dr 40 Tab PO DAILY Carvedilol 12.5 Mg Tablet 12.5 Mg PO BIDWMEALS Losartan Potassium 50 Mg Tablet 100 Mg PO DAILY Miralax (Polyethylene Glycol 3350) 17 Gm Powd.pack 17 Gm PO PRN DAILY Aspir 81 (Aspirin) 81 Mg Tablet.dr 81 Mg PO DAILY Klor-Con (Potassium Chloride) 20 Meq Packet 10 Meq PO DAILY Zocor (Simvastatin) 20 Mg Tablet 20 Mg PO DAILY Vitals/I & O Vital Sign - Last 24 Hours 12/27/16 12/27/16 12/27/16 12/27/16 15:00 17:12 19:00 20:00 Temp 98.5 97.7 98.5 97.7 Pulse 86 86 76 Resp 18 18 B/P (MAP) 106/41 (62) 106/41 118/63 (81) Pulse Ox 98 92 O2 Delivery Nasal Cannula Nasal Cannula Nasal Cannula O2 Flow Rate 3.0 3.0 3.0 12/27/16 12/28/16 12/28/16 12/28/16 23:09 03:10 07:00 07:50 Temp 98.4 98.1 98.3 98.4 98.1 98.3 Pulse 92 83 119 119 Resp 18 16 16 B/P (MAP) 138/68 (91) 141/84 (103) 194/95 (128) 194/95 Pulse Ox 94 100 96 O2 Delivery Nasal Cannula Nasal Cannula Nasal Cannula O2 Flow Rate 3.0 3.0 3.0 12/28/16 12/28/16 12/28/16 12/28/16 08:07 08:11 09:14 11:12 Temp 97.5 97.5 Pulse 81 Resp 16 B/P (MAP) 104/50 (68) Pulse Ox 96 96 97 O2 Delivery Nasal Cannula Nasal Cannula Nasal Cannula Nasal Cannula O2 Flow Rate 3.0 3.0 3.0 3.0 YVONNE WOODARD MD Dec 28, 2016 12:06
--- NOTE | 2016-12-28 12:27 | PDOC ---
PULMONARY PROGRESS NOTES Subjective no soa Vitals Vital Signs Date Time Temp Pulse Resp B/P (MAP) Pulse Ox O2 Delivery O2 Flow Rate FiO2 12/28/16 11:12 97.5 81 16 104/50 (68) 97 Nasal Cannula 3.0 97.5 General: Alert, No acute distress Lungs: Clear Cardiovascular: S1 Abdomen: Soft, Other Extremities: Other (left BKA) Skin: Warm Labs Laboratory Tests Test 12/26/16 16:20 12/26/16 19:00 12/26/16 23:08 12/27/16 01:00 Glucose (Fingerstick) 116 mg/dL (70-99) 131 mg/dL (70-99) Heparin Anti-Xa Act, Unfractionated 1.02 IU/mL (0.30-0.70) 0.64 IU/mL (0.30-0.70) Test 12/27/16 06:10 12/27/16 07:34 12/27/16 11:30 12/27/16 12:50 Prothrombin Time 23.2 SEC (11.7-14.0) Prothromb Time International Ratio 2.2 (0.8-1.1) Heparin Anti-Xa Act, Unfractionated 0.54 IU/mL (0.30-0.70) 0.53 IU/mL (0.30-0.70) Sodium Level 143 mmol/L (136-145) Potassium Level 3.2 mmol/L (3.5-5.1) Chloride Level 103 mmol/L (98-107) Carbon Dioxide Level 31 mmol/L (21-32) Anion Gap 9 (6-14) Blood Urea Nitrogen 17 mg/dL (7-20) Creatinine 1.6 mg/dL (0.6-1.0) Estimated GFR (Non- 31 (>59) Estimated GFR (Cockcroft-Gault) 37.3 Glucose Level 117 mg/dL (70-99) Calcium Level 6.5 mg/dL (8.5-10.1) Magnesium Level 0.5 mg/dL (1.8-2.4) Albumin 2.6 g/dL (3.4-5.0) EGFR 36 (>59) PTH (Intact) Specimen Description Comment (.) Parathyroid Hormone (Intact) 120 pg/mL (15-65) Calcium (PTH Intact) 6.5 mg/dL (8.7-10.3) Creatinine (PTH Intact) 1.53 mg/dL (0.57-1.00) Phosphorus (PTH Intact) 2.7 mg/dL (2.5-4.5) Glucose (Fingerstick) 144 mg/dL (70-99) 198 mg/dL (70-99) Test 12/27/16 16:49 12/27/16 20:27 12/28/16 07:32 12/28/16 08:00 Glucose (Fingerstick) 185 mg/dL (70-99) 207 mg/dL (70-99) 178 mg/dL (70-99) White Blood Count 19.1 x10^3/uL (4.0-11.0) Red Blood Count 3.44 x10^6/uL (3.50-5.40) Hemoglobin 10.1 g/dL (12.0-15.5) Hematocrit 31.3 % (36.0-47.0) Mean Corpuscular Volume 91 fL (79-100) Mean Corpuscular Hemoglobin 29 pg (25-35) Mean Corpuscular Hemoglobin Concent 32 g/dL (31-37) Red Cell Distribution Width 15.3 % (11.5-14.5) Platelet Count 502 x10^3/uL (140-400) Neutrophils (%) (Auto) 77 % (31-73) Lymphocytes (%) (Auto) 11 % (24-48) Monocytes (%) (Auto) 11 % (0-9) Eosinophils (%) (Auto) 0 % (0-3) Basophils (%) (Auto) 1 % (0-3) Neutrophils # (Auto) 14.6 x10^3uL (1.8-7.7) Lymphocytes # (Auto) 2.2 x10^3/uL (1.0-4.8) Monocytes # (Auto) 2.1 x10^3/uL (0.0-1.1) Eosinophils # (Auto) 0.0 x10^3/uL (0.0-0.7) Basophils # (Auto) 0.1 x10^3/uL (0.0-0.2) Prothrombin Time 26.8 SEC (11.7-14.0) Prothromb Time International Ratio 2.7 (0.8-1.1) Heparin Anti-Xa Act, Unfractionated 0.12 IU/mL (0.30-0.70) Sodium Level 136 mmol/L (136-145) Potassium Level 4.6 mmol/L (3.5-5.1) Chloride Level 100 mmol/L (98-107) Carbon Dioxide Level 30 mmol/L (21-32) Anion Gap 6 (6-14) Blood Urea Nitrogen 21 mg/dL (7-20) Creatinine 1.4 mg/dL (0.6-1.0) Estimated GFR (Cockcroft-Gault) 43.6 Glucose Level 191 mg/dL (70-99) Calcium Level 7.7 mg/dL (8.5-10.1) Phosphorus Level 3.0 mg/dL (2.6-4.7) Magnesium Level 0.8 mg/dL (1.8-2.4) Creatine Kinase 157 U/L (26-192) Albumin 2.3 g/dL (3.4-5.0) Test 12/28/16 11:35 Glucose (Fingerstick) 222 mg/dL (70-99) Laboratory Tests Test 12/27/16 12:50 12/27/16 16:49 12/27/16 20:27 12/28/16 07:32 Heparin Anti-Xa Act, Unfractionated 0.53 IU/mL (0.30-0.70) Glucose (Fingerstick) 185 mg/dL (70-99) 207 mg/dL (70-99) 178 mg/dL (70-99) Test 12/28/16 08:00 12/28/16 11:35 White Blood Count 19.1 x10^3/uL (4.0-11.0) Red Blood Count 3.44 x10^6/uL (3.50-5.40) Hemoglobin 10.1 g/dL (12.0-15.5) Hematocrit 31.3 % (36.0-47.0) Mean Corpuscular Volume 91 fL (79-100) Mean Corpuscular Hemoglobin 29 pg (25-35) Mean Corpuscular Hemoglobin Concent 32 g/dL (31-37) Red Cell Distribution Width 15.3 % (11.5-14.5) Platelet Count 502 x10^3/uL (140-400) Neutrophils (%) (Auto) 77 % (31-73) Lymphocytes (%) (Auto) 11 % (24-48) Monocytes (%) (Auto) 11 % (0-9) Eosinophils (%) (Auto) 0 % (0-3) Basophils (%) (Auto) 1 % (0-3) Neutrophils # (Auto) 14.6 x10^3uL (1.8-7.7) Lymphocytes # (Auto) 2.2 x10^3/uL (1.0-4.8) Monocytes # (Auto) 2.1 x10^3/uL (0.0-1.1) Eosinophils # (Auto) 0.0 x10^3/uL (0.0-0.7) Basophils # (Auto) 0.1 x10^3/uL (0.0-0.2) Prothrombin Time 26.8 SEC (11.7-14.0) Prothromb Time International Ratio 2.7 (0.8-1.1) Heparin Anti-Xa Act, Unfractionated 0.12 IU/mL (0.30-0.70) Sodium Level 136 mmol/L (136-145) Potassium Level 4.6 mmol/L (3.5-5.1) Chloride Level 100 mmol/L (98-107) Carbon Dioxide Level 30 mmol/L (21-32) Anion Gap 6 (6-14) Blood Urea Nitrogen 21 mg/dL (7-20) Creatinine 1.4 mg/dL (0.6-1.0) Estimated GFR (Cockcroft-Gault) 43.6 Glucose Level 191 mg/dL (70-99) Calcium Level 7.7 mg/dL (8.5-10.1) Phosphorus Level 3.0 mg/dL (2.6-4.7) Magnesium Level 0.8 mg/dL (1.8-2.4) Creatine Kinase 157 U/L (26-192) Albumin 2.3 g/dL (3.4-5.0) Glucose (Fingerstick) 222 mg/dL (70-99) Medications Active Scripts Medications Dose Route/Sig Max Daily Dose Days Date Category Hydrocodone-Apap 5-325 (Hydrocodone Bit/Acetaminophen) 1 Each Tablet 1-2 Tab PO PRN Q4HRS PRN 9/20/17 Rx Hydrocodone-Apap 5-325 (Hydrocodone Bit/Acetaminophen) 1 Each Tablet 2 Tab PO PRN Q4HRS PRN 10/25/16 Reported [place] 5-325 Tablet (Acetaminophen/Hydrocodone Bitart) 1 Each Tablet 1-2 Tab PO Q4-6HRS 09/05/16 Rx Venlafaxine Hcl Er (Venlafaxine Hcl) 75 Mg Cap.er.24h 1 Cap PO DAILY 09/02/16 Reported Lasix (Furosemide) 40 Mg Tablet 1 Tab PO DAILY 12/22/14 Reported Xanax (Alprazolam) 0.5 Mg Tablet 0.25 Mg PO HS PRN PRN 12/21/14 Reported Tramadol-Acetaminophn 37.5-325 (Tramadol Hcl/Acetaminophen) 1 Each Tablet 1 Tab PO Q6HRS 12/21/14 Reported Reglan (Metoclopramide Hcl) 10 Mg Tablet 5 Mg PO BIDACBL 12/21/14 Reported Pantoprazole Sodium 40 Mg Tablet. 40 Tab PO DAILY 12/21/14 Reported Carvedilol 12.5 Mg Tablet 12.5 Mg PO BIDWMEALS 12/21/14 Reported Losartan Potassium 50 Mg Tablet 100 Mg PO DAILY 12/21/14 Reported Miralax (Polyethylene Glycol 3350) 17 Gm Powd.pack 17 Gm PO PRN DAILY 01/11/13 Reported Aspir 81 (Aspirin) 81 Mg Tablet.dr 81 Mg PO DAILY 01/11/13 Reported Klor-Con (Potassium Chloride) 20 Meq Packet 10 Meq PO DAILY 01/11/13 Reported Zocor (Simvastatin) 20 Mg Tablet 20 Mg PO DAILY 01/11/13 Reported Impression . 1. Acute hypoxic respiratory failure secondary to left lower lobe pulmonary embolism. 2. Abnormal V/Q scan with mismatch defect in the left lower lobe, consistent with high probability for pulmonary embolism. 3. Pancreatic cancer with hypercoagulable state, contributing to pulmonary embolism. 4. Possible underlying chronic obstructive pulmonary disease. 5. Left below-knee amputation. 6. History of bilateral lung nodules, some of them were cavitating in October. No change on follow up CT chest. These are likely metastatic nodules. Plan . 1. Continue with current anticoagulation. INR therapeutic. dc heparin 2. The patient would need lifelong anticoagulation until her cancer is resolved. 3. Continue to wean oxygen. 4. Positive venous Dopplers of lower extremity on the right for DVT. 5. Follow Oncology recommendations. FELIPA DOWNING MD Dec 28, 2016 12:27
--- NOTE | 2016-12-28 14:09 | PDOC ---
PROGRESS NOTES Chief Complaint Chief Complaint PE ASSESSMENT AND PLAN: 1. PE: + VQ scan done as an outpatient. heparin gtt converted to coumadin, therapeutic INR 2. CASSIDY on CKD4: avoid nephrotoxic meds. appreciate nephrolgy input; creat much improved. 3. Pancreatic CA: on weekly chemo. Onc following. high risk for VTE 4. CAD: s/p CABG 5 years ago; cont 2ary prevention meds 5. Hypokalemia: improved 6. Hypomagnesemia: severe. IV repletion. recheck in AM 7. Leukocytosis: reactive. monitor; anticipate potential decrease post chemo 8. troponin leak: 2/2 PE. cardiology following 9. Nausea, poor PO intake: prob 2/2 chemo given yesterday as well as primary malignancy. 10. Dispo: home in AM History of Present Illness History of Present Illness sleepy. poor appetite. no nausea or abd pain. wants to go home Vitals Vitals Vital Signs Date Time Temp Pulse Resp B/P (MAP) Pulse Ox O2 Delivery O2 Flow Rate FiO2 12/28/16 11:12 97.5 81 16 104/50 (68) 97 Nasal Cannula 3.0 97.5 Physical Exam General: Alert, Oriented X3, Cooperative, No acute distress Heart: Regular rate Lungs: Clear Abdomen: Normal bowel sounds, Soft, No tenderness Extremities: No edema, Other (left BKA. 2 lesions on stump on the posterior aspect of the left knee ) Skin: No rashes Labs LABS Laboratory Tests Test 12/27/16 16:49 12/27/16 20:27 12/28/16 07:32 12/28/16 08:00 Glucose (Fingerstick) 185 mg/dL (70-99) 207 mg/dL (70-99) 178 mg/dL (70-99) White Blood Count 19.1 x10^3/uL (4.0-11.0) Red Blood Count 3.44 x10^6/uL (3.50-5.40) Hemoglobin 10.1 g/dL (12.0-15.5) Hematocrit 31.3 % (36.0-47.0) Mean Corpuscular Volume 91 fL (79-100) Mean Corpuscular Hemoglobin 29 pg (25-35) Mean Corpuscular Hemoglobin Concent 32 g/dL (31-37) Red Cell Distribution Width 15.3 % (11.5-14.5) Platelet Count 502 x10^3/uL (140-400) Neutrophils (%) (Auto) 77 % (31-73) Lymphocytes (%) (Auto) 11 % (24-48) Monocytes (%) (Auto) 11 % (0-9) Eosinophils (%) (Auto) 0 % (0-3) Basophils (%) (Auto) 1 % (0-3) Neutrophils # (Auto) 14.6 x10^3uL (1.8-7.7) Lymphocytes # (Auto) 2.2 x10^3/uL (1.0-4.8) Monocytes # (Auto) 2.1 x10^3/uL (0.0-1.1) Eosinophils # (Auto) 0.0 x10^3/uL (0.0-0.7) Basophils # (Auto) 0.1 x10^3/uL (0.0-0.2) Prothrombin Time 26.8 SEC (11.7-14.0) Prothromb Time International Ratio 2.7 (0.8-1.1) Heparin Anti-Xa Act, Unfractionated 0.12 IU/mL (0.30-0.70) Sodium Level 136 mmol/L (136-145) Potassium Level 4.6 mmol/L (3.5-5.1) Chloride Level 100 mmol/L (98-107) Carbon Dioxide Level 30 mmol/L (21-32) Anion Gap 6 (6-14) Blood Urea Nitrogen 21 mg/dL (7-20) Creatinine 1.4 mg/dL (0.6-1.0) Estimated GFR (Cockcroft-Gault) 43.6 Glucose Level 191 mg/dL (70-99) Calcium Level 7.7 mg/dL (8.5-10.1) Phosphorus Level 3.0 mg/dL (2.6-4.7) Magnesium Level 0.8 mg/dL (1.8-2.4) Creatine Kinase 157 U/L (26-192) Albumin 2.3 g/dL (3.4-5.0) Test 12/28/16 11:35 Glucose (Fingerstick) 222 mg/dL (70-99) IDNY RONDON MD Dec 28, 2016 14:09
[2016-12-28] MEDS ORDERED: MAGNESIUM SULFATE 1GM 100 ML IV ONE (14:30)
--- NOTE | 2016-12-28 14:41 | PDOC ---
SUBJECTIVE ROS CKD III doing OK CVS: no Orthopnea, no CP RESP: no SOB, no HUNTER GI: no Nausea, no Vomiting : no Dysuria, no Urgency OBJECTIVE Vital Signs Vital Signs Date Time Temp Pulse Resp B/P (MAP) Pulse Ox O2 Delivery O2 Flow Rate FiO2 12/28/16 11:12 97.5 81 16 104/50 (68) 97 Nasal Cannula 3.0 97.5 I & 0 Intake and Output 12/28/16 07:00 Intake Total 400 ml Output Total 1800 ml Balance -1400 ml Intake Oral 400 ml Output Urine Total 1800 ml PHYSICAL EXAM Physical Exam GEN: Awake, Oriented x 2, In no distress EYES: Vision Unchanged, Conjunctiva Normal EN: No EN Drainage, Mucous Membranes moist NECK: no JVD, no JVP, Supple, no Thyromegaly CVS: S1S2, no Murmur, No Gallop, No Rub,no Edema RESP: no Rales, no Rhonchi,no Acc. Muscle Use GI: BS + ve, NO Bruit, Non Tender, Non Distended : no CVA tenderness, no Suprapubic Tenderness DIAGNOSIS/ASSESSMENT CASSIDY- VASOMOTOR - much improved today after vol repletion - now back to Baseline creat CKD STAGE 3-CR OF 1.4ish at baseline as noted in Oct 2016 DEHYDRATION - ? resolved with IVF. HYPOKALEMIA - replace as ordered, Hold lasix; replace mag Sev HypoMag - replace as ordered Hypocalcemia - suspected due to low Mag; PTH, is appropriately elevated - may need VIT D checked as OP COMMENT/RELEVANT DATA Meds Current Medications Medications (Trade) Dose Ordered Sig/Zoya Start Time Stop Time Status Last Admin Dose Admin Acetaminophen/ Hydrocodone Bitart (Lortab 5/325) 2 tab PRN Q4HRS PRN 12/25/16 18:45 12/28/16 08:07 2 TAB Alprazolam (Xanax) 0.25 mg Q8HRS PRN 12/25/16 18:45 12/27/16 20:36 0.25 MG Amino Acids/ Glycerin/ Electrolytes 1,000 ml @ 80 mls/hr [id number] 12/27/16 10:00 12/28/16 10:55 80 MLS/HR Aspirin (Ecotrin) 81 mg DAILY 12/26/16 09:00 11/19/17 07:49 81 MG Calcium Gluconate (Calcium Gluconate) 1,000 mg Q2H 12/27/16 10:00 12/27/16 14:01 DC 12/27/16 16:02 1,000 MG Carvedilol (Coreg) 12.5 mg BIDWMEALS 12/26/16 08:00 12/28/16 07:50 12.5 MG Dextrose (Dextrose 50%-Water Syringe) 12.5 gm PRN Q15MIN PRN 12/25/16 18:45 Docusate Sodium (Colace) 100 mg PRN DAILY PRN 12/25/16 19:00 Furosemide (Lasix) 40 mg DAILY 12/26/16 09:00 12/27/16 09:28 DC 12/27/16 08:31 40 MG Heparin Sodium (Porcine) (Heparin Sodium) 1,100 unit PRN Q6HRS PRN 12/25/16 18:45 12/28/16 12:28 DC Heparin Sodium/ Dextrose 500 ml @ 0 mls/hr CONT PRN 12/25/16 18:45 12/28/16 12:28 DC 12/28/16 09:36 17.2 MLS/HR Info (Anti-Coagulation Monitoring By Pharmacy) 1 each PRN DAILY PRN 12/27/16 14:00 12/28/16 12:28 DC Insulin Aspart (NovoLOG) 0-7 UNITS TIDWMEALS 12/26/16 08:00 12/28/16 12:16 4 UNITS Magnesium Sulfate/ Dextrose 100 ml @ 100 mls/hr 1X ONCE 12/28/16 14:30 12/28/16 15:29 Metoclopramide HCl (Reglan) 5 mg BIDACBL 12/26/16 07:30 12/28/16 12:09 5 MG Ondansetron HCl (Zofran) 4 mg PRN Q8HRS PRN 12/25/16 17:30 12/26/16 17:29 DC Pantoprazole Sodium (Protonix) 40 mg DAILYAC 12/26/16 07:30 12/28/16 07:50 40 MG Polyethylene Glycol (miraLAX PACKET) 17 gm PRN DAILY PRN 12/25/16 18:45 Potassium Chloride/Sodium Chloride 1,000 ml @ 75 mls/hr 1X ONCE 12/26/16 10:00 12/26/16 23:19 DC 12/26/16 11:33 75 MLS/HR Potassium Chloride (Klor-Con) 20 meq BIDACLD 12/27/16 11:30 12/27/16 22:00 DC 12/27/16 17:10 20 MEQ Simvastatin (Zocor) 20 mg QHS 12/25/16 21:00 12/27/16 20:36 20 MG Sodium Chloride 1,000 ml @ 125 mls/hr Q8H 12/25/16 17:18 12/26/16 09:51 DC 12/25/16 20:54 125 MLS/HR Venlafaxine HCl (Effexor Xr) 75 mg DAILY 12/26/16 09:00 12/28/16 07:49 75 MG Warfarin Sodium (Coumadin Per Pharmacy) 1 each PRN DAILY PRN 12/25/16 18:45 12/28/16 13:30 1 EACH Warfarin Sodium (Coumadin) 2 mg 1X WARF ONCE 12/28/16 16:00 12/28/16 16:01 Lab Laboratory Tests Test 12/27/16 16:49 12/27/16 20:27 12/28/16 07:32 12/28/16 08:00 Glucose (Fingerstick) 185 mg/dL (70-99) 207 mg/dL (70-99) 178 mg/dL (70-99) White Blood Count 19.1 x10^3/uL (4.0-11.0) Red Blood Count 3.44 x10^6/uL (3.50-5.40) Hemoglobin 10.1 g/dL (12.0-15.5) Hematocrit 31.3 % (36.0-47.0) Mean Corpuscular Volume 91 fL (79-100) Mean Corpuscular Hemoglobin 29 pg (25-35) Mean Corpuscular Hemoglobin Concent 32 g/dL (31-37) Red Cell Distribution Width 15.3 % (11.5-14.5) Platelet Count 502 x10^3/uL (140-400) Neutrophils (%) (Auto) 77 % (31-73) Lymphocytes (%) (Auto) 11 % (24-48) Monocytes (%) (Auto) 11 % (0-9) Eosinophils (%) (Auto) 0 % (0-3) Basophils (%) (Auto) 1 % (0-3) Neutrophils # (Auto) 14.6 x10^3uL (1.8-7.7) Lymphocytes # (Auto) 2.2 x10^3/uL (1.0-4.8) Monocytes # (Auto) 2.1 x10^3/uL (0.0-1.1) Eosinophils # (Auto) 0.0 x10^3/uL (0.0-0.7) Basophils # (Auto) 0.1 x10^3/uL (0.0-0.2) Prothrombin Time 26.8 SEC (11.7-14.0) Prothromb Time International Ratio 2.7 (0.8-1.1) Heparin Anti-Xa Act, Unfractionated 0.12 IU/mL (0.30-0.70) Sodium Level 136 mmol/L (136-145) Potassium Level 4.6 mmol/L (3.5-5.1) Chloride Level 100 mmol/L (98-107) Carbon Dioxide Level 30 mmol/L (21-32) Anion Gap 6 (6-14) Blood Urea Nitrogen 21 mg/dL (7-20) Creatinine 1.4 mg/dL (0.6-1.0) Estimated GFR (Cockcroft-Gault) 43.6 Glucose Level 191 mg/dL (70-99) Calcium Level 7.7 mg/dL (8.5-10.1) Phosphorus Level 3.0 mg/dL (2.6-4.7) Magnesium Level 0.8 mg/dL (1.8-2.4) Creatine Kinase 157 U/L (26-192) Albumin 2.3 g/dL (3.4-5.0) Test 12/28/16 11:35 Glucose (Fingerstick) 222 mg/dL (70-99) ALAN ARGUELLO MD Dec 28, 2016 14:41
[2016-12-28 14:55] VITALS: BP 109/53
[2016-12-28] MEDS ORDERED: WARFARIN 2 MG TABLET. PO ONE (16:00)
[2016-12-28 19:33] VITALS: BP 124/61
[2016-12-28] MEDS: ALPRAZolam 0.5 MG TABLET PO PRN (19:34)
[2016-12-28] MEDS: SIMVASTATIN 20 MG TABLET PO SCH (19:34)
[2016-12-28 23:25] VITALS: BP 111/69
[2016-12-29 03:00] VITALS: BP 168/78
[2016-12-29] MEDS: HYDROcodone/APAP 5/325MG 1 TAB TABLET PO PRN (03:08)
[2016-12-29 05:12] LABS: BASO # 0.1 x10^3/uL (0.0-0.2); BASO % 1 % (0-3); EOS % 0 % (0-3); HEMATOCRIT 29.9 % (36.0-47.0); HEMOGLOBIN 9.4 g/dL (12.0-15.5); LYMPH # 2.3 x10^3/uL (1.0-4.8); LYMPH % 15 % (24-48); MEAN CORPUSCULAR HEMOGLOBIN 29 pg (25-35); MEAN CORPUSCULAR HGB CONC 32 g/dL (31-37); MEAN CORPUSCULAR VOLUME 91 fL (79-100); MONO % 12 % (0-9); NEUT % 72 % (31-73); PLATELET COUNT 457 x10^3/uL (140-400); RED BLOOD COUNT 3.28 x10^6/uL (3.50-5.40); RED CELL DISTRIBUTION WIDTH 15.4 % (11.5-14.5); WHITE BLOOD COUNT 15.5 x10^3/uL (4.0-11.0)
[2016-12-29] MEDS: METOCLOPRAMIDE 10 MG TABLET. PO SCH ×2 (05:16→12:27)
[2016-12-29] MEDS: ALPRAZolam 0.5 MG TABLET PO PRN (05:16)
[2016-12-29] MEDS: PANTOPRAZOLE 40 MG TABLET.DR. PO SCH (05:16)
[2016-12-29 05:30] LABS: ALBUMIN 1.9 g/dL (3.4-5.0); CALCIUM 8.1 mg/dL (8.5-10.1); CREATININE 1.4 mg/dL (0.6-1.0); GFR 43.6; MAGNESIUM 1.9 mg/dL (1.8-2.4); PHOSPHORUS 2.7 mg/dL (2.6-4.7); POTASSIUM 4.4 mmol/L (3.5-5.1)
[2016-12-29 05:43] LABS: INR 2.5 (0.8-1.1); PROTHROMBIN TIME PATIENT 25.9 SEC (11.7-14.0)
[2016-12-29 07:00] VITALS: BP_SYST 119; BP_SYST 123; BP_DIAS 42; BP_DIAS 55
[2016-12-29] MEDS: INSULIN ASPART 300 UNITS/3 ML INSULN.PEN SQ SCH ×2 (08:00→12:31)
[2016-12-29] MEDS: VENLAFAXINE XR 37.5 MG CAP.ER.24H. PO SCH (08:32)
[2016-12-29] MEDS: ASPIRIN ENTERIC COATED 81 MG TABLET.DR. PO SCH (08:32)
[2016-12-29] MEDS: CARVEDILOL 12.5 MG TABLET. PO SCH (08:33)
--- NOTE | 2016-12-29 09:02 | PDOC ---
PROGRESS NOTES Subjective Subjective HPI - Stage 4 pancreatic cancer with lung metastasis diagnosed on 10/31/2016. She is on palliative chemotherapy with gemcitabine that was initiated on 11/25/2016 and she received cycle #1 day #15 on 12/09/2016 ROS- no dyspnea Objective Objective Vital Signs Date Time Temp Pulse Resp B/P (MAP) Pulse Ox O2 Delivery O2 Flow Rate FiO2 12/29/16 08:33 94 123/55 12/29/16 07:00 97.7 18 92 Nasal Cannula 3.0 97.7 Intake and Output 12/29/16 07:00 Intake Total 260 ml Output Total 400 ml Balance -140 ml Intake Oral 260 ml Output Urine Total 400 ml Physical Exam Heart: Normal S1, Normal S2 General: Alert, Oriented X3 Lungs: Clear to auscultation Neuro: Normal speech Psych/Mental Status: Mental status NL Assessment Assessment Problems Medical Problems: (1) Elevated troponin Status: Acute (2) Leukocytosis Status: Acute IMPRESSION AND PLAN: 1. Stage 4 pancreatic cancer with lung metastasis diagnosed on 10/31/2016. She is on palliative chemotherapy with gemcitabine that was initiated on 11/25/2016 and she received cycle #1 day #15 on 12/09/2016. I have advised her to follow up with me upon discharge for continuation of chemotherapy. 2. Acute pulmonary embolism diagnosed on 12/25/2016. She is currently on heparin, agreed to transition to Coumadin. INR 2.5. 3. Anemia due to malignancy, no signs of bleeding. Continue to monitor. 4. DVT bl LE 12/26/16. Comment Review of Relevant I have reviewed the following items chet (where applicable) has been applied. Labs Laboratory Tests Test 12/27/16 11:30 12/27/16 12:50 12/27/16 16:49 12/27/16 20:27 Glucose (Fingerstick) 198 mg/dL (70-99) 185 mg/dL (70-99) 207 mg/dL (70-99) Heparin Anti-Xa Act, Unfractionated 0.53 IU/mL (0.30-0.70) Test 12/28/16 07:32 12/28/16 08:00 12/28/16 11:35 12/28/16 16:50 Glucose (Fingerstick) 178 mg/dL (70-99) 222 mg/dL (70-99) 183 mg/dL (70-99) White Blood Count 19.1 x10^3/uL (4.0-11.0) Red Blood Count 3.44 x10^6/uL (3.50-5.40) Hemoglobin 10.1 g/dL (12.0-15.5) Hematocrit 31.3 % (36.0-47.0) Mean Corpuscular Volume 91 fL (79-100) Mean Corpuscular Hemoglobin 29 pg (25-35) Mean Corpuscular Hemoglobin Concent 32 g/dL (31-37) Red Cell Distribution Width 15.3 % (11.5-14.5) Platelet Count 502 x10^3/uL (140-400) Neutrophils (%) (Auto) 77 % (31-73) Lymphocytes (%) (Auto) 11 % (24-48) Monocytes (%) (Auto) 11 % (0-9) Eosinophils (%) (Auto) 0 % (0-3) Basophils (%) (Auto) 1 % (0-3) Neutrophils # (Auto) 14.6 x10^3uL (1.8-7.7) Lymphocytes # (Auto) 2.2 x10^3/uL (1.0-4.8) Monocytes # (Auto) 2.1 x10^3/uL (0.0-1.1) Eosinophils # (Auto) 0.0 x10^3/uL (0.0-0.7) Basophils # (Auto) 0.1 x10^3/uL (0.0-0.2) Prothrombin Time 26.8 SEC (11.7-14.0) Prothromb Time International Ratio 2.7 (0.8-1.1) Heparin Anti-Xa Act, Unfractionated 0.12 IU/mL (0.30-0.70) Sodium Level 136 mmol/L (136-145) Potassium Level 4.6 mmol/L (3.5-5.1) Chloride Level 100 mmol/L (98-107) Carbon Dioxide Level 30 mmol/L (21-32) Anion Gap 6 (6-14) Blood Urea Nitrogen 21 mg/dL (7-20) Creatinine 1.4 mg/dL (0.6-1.0) Estimated GFR (Cockcroft-Gault) 43.6 Glucose Level 191 mg/dL (70-99) Calcium Level 7.7 mg/dL (8.5-10.1) Phosphorus Level 3.0 mg/dL (2.6-4.7) Magnesium Level 0.8 mg/dL (1.8-2.4) Creatine Kinase 157 U/L (26-192) Albumin 2.3 g/dL (3.4-5.0) Test 12/29/16 04:10 12/29/16 07:15 White Blood Count 15.5 x10^3/uL (4.0-11.0) Red Blood Count 3.28 x10^6/uL (3.50-5.40) Hemoglobin 9.4 g/dL (12.0-15.5) Hematocrit 29.9 % (36.0-47.0) Mean Corpuscular Volume 91 fL (79-100) Mean Corpuscular Hemoglobin 29 pg (25-35) Mean Corpuscular Hemoglobin Concent 32 g/dL (31-37) Red Cell Distribution Width 15.4 % (11.5-14.5) Platelet Count 457 x10^3/uL (140-400) Neutrophils (%) (Auto) 72 % (31-73) Lymphocytes (%) (Auto) 15 % (24-48) Monocytes (%) (Auto) 12 % (0-9) Eosinophils (%) (Auto) 0 % (0-3) Basophils (%) (Auto) 1 % (0-3) Neutrophils # (Auto) 11.2 x10^3uL (1.8-7.7) Lymphocytes # (Auto) 2.3 x10^3/uL (1.0-4.8) Monocytes # (Auto) 1.9 x10^3/uL (0.0-1.1) Eosinophils # (Auto) 0.1 x10^3/uL (0.0-0.7) Basophils # (Auto) 0.1 x10^3/uL (0.0-0.2) Prothrombin Time 25.9 SEC (11.7-14.0) Prothromb Time International Ratio 2.5 (0.8-1.1) Sodium Level 137 mmol/L (136-145) Potassium Level 4.4 mmol/L (3.5-5.1) Chloride Level 101 mmol/L (98-107) Carbon Dioxide Level 30 mmol/L (21-32) Anion Gap 6 (6-14) Blood Urea Nitrogen 19 mg/dL (7-20) Creatinine 1.4 mg/dL (0.6-1.0) Estimated GFR (Cockcroft-Gault) 43.6 Glucose Level 130 mg/dL (70-99) Calcium Level 8.1 mg/dL (8.5-10.1) Phosphorus Level 2.7 mg/dL (2.6-4.7) Magnesium Level 1.9 mg/dL (1.8-2.4) Creatine Kinase 44 U/L (26-192) Albumin 1.9 g/dL (3.4-5.0) Glucose (Fingerstick) 148 mg/dL (70-99) Laboratory Tests Test 12/28/16 11:35 12/28/16 16:50 12/29/16 04:10 12/29/16 07:15 Glucose (Fingerstick) 222 mg/dL (70-99) 183 mg/dL (70-99) 148 mg/dL (70-99) White Blood Count 15.5 x10^3/uL (4.0-11.0) Red Blood Count 3.28 x10^6/uL (3.50-5.40) Hemoglobin 9.4 g/dL (12.0-15.5) Hematocrit 29.9 % (36.0-47.0) Mean Corpuscular Volume 91 fL (79-100) Mean Corpuscular Hemoglobin 29 pg (25-35) Mean Corpuscular Hemoglobin Concent 32 g/dL (31-37) Red Cell Distribution Width 15.4 % (11.5-14.5) Platelet Count 457 x10^3/uL (140-400) Neutrophils (%) (Auto) 72 % (31-73) Lymphocytes (%) (Auto) 15 % (24-48) Monocytes (%) (Auto) 12 % (0-9) Eosinophils (%) (Auto) 0 % (0-3) Basophils (%) (Auto) 1 % (0-3) Neutrophils # (Auto) 11.2 x10^3uL (1.8-7.7) Lymphocytes # (Auto) 2.3 x10^3/uL (1.0-4.8) Monocytes # (Auto) 1.9 x10^3/uL (0.0-1.1) Eosinophils # (Auto) 0.1 x10^3/uL (0.0-0.7) Basophils # (Auto) 0.1 x10^3/uL (0.0-0.2) Prothrombin Time 25.9 SEC (11.7-14.0) Prothromb Time International Ratio 2.5 (0.8-1.1) Sodium Level 137 mmol/L (136-145) Potassium Level 4.4 mmol/L (3.5-5.1) Chloride Level 101 mmol/L (98-107) Carbon Dioxide Level 30 mmol/L (21-32) Anion Gap 6 (6-14) Blood Urea Nitrogen 19 mg/dL (7-20) Creatinine 1.4 mg/dL (0.6-1.0) Estimated GFR (Cockcroft-Gault) 43.6 Glucose Level 130 mg/dL (70-99) Calcium Level 8.1 mg/dL (8.5-10.1) Phosphorus Level 2.7 mg/dL (2.6-4.7) Magnesium Level 1.9 mg/dL (1.8-2.4) Creatine Kinase 44 U/L (26-192) Albumin 1.9 g/dL (3.4-5.0) Microbiology 12/25/16 Blood Culture - Preliminary, Resulted NO GROWTH AFTER 3 DAYS Medications Current Medications Sodium Chloride 1,000 ml @ 999 mls/hr Q1H1M IV Last administered on 18:03; Start 12/25/16 at 16:09; Stop 12/25/16 at 23:50; Status DC Ondansetron HCl (Zofran) 4 mg PRN Q8HRS PRN IV NAUSEA/VOMITING; Start at 17:30; Stop 12/26/16 at 17:29; Status DC Sodium Chloride 1,000 ml @ 125 mls/hr Q8H IV Last administered on 12/25/16 20:54; Start 12/25/16 at 17:18; Stop 12/26/16 at 09:51; Status DC Heparin Sodium/ Dextrose 500 ml @ 0 mls/hr CONT PRN IV SEE I/O RECORD Last administered on 12/28/16 09:36; Start 12/25/16 at 18:45; Stop 12/28/16 at 12 :28; Status DC Heparin Sodium (Porcine) (Heparin Sodium) 2,150 unit PRN Q6HRS PRN IV FOR UFH LEVEL LESS THAN 0.2 Last administered on 12/28/16 09:33; Start 12/25/16 at 18 :45; Stop 12/28/16 at 12:28; Status DC Heparin Sodium (Porcine) (Heparin Sodium) 1,100 unit PRN Q6HRS PRN IV FOR UFH LEVEL 0.2 - 0.29; Start 12/25/16 at 18:45; Stop 12/28/16 at 12:28; Status DC Warfarin Sodium (Coumadin Per Pharmacy) 1 each PRN DAILY PRN MC PER PROTOCOL Last administered on 12/28/16 13:30; Start 12/25/16 at 18:45 Potassium Chloride (Klor-Con) 40 meq 1X ONCE PO Last administered on 19:24; Start 12/25/16 at 18:45; Stop 12/25/16 at 18:46; Status DC Alprazolam (Xanax) 0.25 mg Q8HRS PRN PO ANXIETY Last administered on 05:16; Start 12/25/16 at 18:45 Aspirin (Ecotrin) 81 mg DAILY PO Last administered on 12/29/16 08:32; Start 12/26/16 at 09:00 Carvedilol (Coreg) 12.5 mg BIDWMEALS PO Last administered on 12/29/16 08:33; Start 12/26/16 at 08:00 Furosemide (Lasix) 40 mg DAILY PO Last administered on 12/27/16 08:31; Start 12/26/16 at 09:00; Stop 12/27/16 at 09:28; Status DC Acetaminophen/ Hydrocodone Bitart (Lortab 5/325) 2 tab PRN Q4HRS PRN PO PAIN Last administered on 12/29/16 03:08; Start 12/25/16 at 18:45 Metoclopramide HCl (Reglan) 5 mg BIDACBL PO Last administered on 12/29/16 05: 16; Start 12/26/16 at 07:30 Pantoprazole Sodium (Protonix) 40 mg DAILYAC PO Last administered on 05:16; Start 12/26/16 at 07:30 Polyethylene Glycol (miraLAX PACKET) 17 gm PRN DAILY PRN PO CONSTIPATION; Start 12/25/16 at 18:45 Simvastatin (Zocor) 20 mg QHS PO Last administered on 12/28/16 19:34; Start 12/25/16 at 21:00 Potassium Chloride (Klor-Con) 10 meq [id number] PO Last administered on 07:51; Start 12/26/16 at 08:00; Stop 12/28/16 at 14:42; Status DC Venlafaxine HCl (Effexor Xr) 75 mg DAILY PO Last administered on 12/29/16 08: 32; Start 12/26/16 at 09:00 Warfarin Sodium (Coumadin) 5 mg 1X WARF ONCE PO Last administered on 19:25; Start 12/25/16 at 19:00; Stop 12/25/16 at 19:01; Status DC Insulin Aspart (NovoLOG) 0-7 UNITS TIDWMEALS SQ Last administered on 17:35; Start 12/26/16 at 08:00 Dextrose (Dextrose 50%-Water Syringe) 12.5 gm PRN Q15MIN PRN IV SEE COMMENTS; Start 12/25/16 at 18:45 Docusate Sodium (Colace) 100 mg PRN DAILY PRN PO CONSTIPATION; Start 12/25/16 at 19:00 Potassium Chloride (Klor-Con) 40 meq 1X ONCE PO Last administered on 11:33; Start 12/26/16 at 10:00; Stop 12/26/16 at 10:01; Status DC Potassium Chloride/Sodium Chloride 1,000 ml @ 75 mls/hr 1X ONCE IV Last administered on 12/26/16 11:33; Start 12/26/16 at 10:00; Stop 12/26/16 at 23 :19; Status DC Warfarin Sodium (Coumadin) 5 mg 1X WARF ONCE PO Last administered on 16:46; Start 12/26/16 at 16:00; Stop 12/26/16 at 16:01; Status DC Potassium Chloride (Klor-Con) 20 meq BIDACLD PO Last administered on 17:10; Start 12/27/16 at 11:30; Stop 12/27/16 at 22:00; Status DC Amino Acids/ Glycerin/ Electrolytes 1,000 ml @ 80 mls/hr [id number] IV Last administered on 12/28/16 10:55; Start 12/27/16 at 10:00; Stop 12/28/16 at 14 :42; Status DC Magnesium Sulfate/ Dextrose 50 ml @ 25 mls/hr PRN DAILY PRN IV for Mag < 1.7 on am labs Last administered on 12/28/16 17:24; Start 12/27/16 at 09:30 Calcium Gluconate (Calcium Gluconate) 1,000 mg Q2H IVP Last administered on 16:02; Start 12/27/16 at 10:00; Stop 12/27/16 at 14:01; Status DC Warfarin Sodium (Coumadin) 3 mg 1X WARF ONCE PO Last administered on 17:11; Start 12/27/16 at 16:00; Stop 12/27/16 at 16:01; Status DC Info (Anti-Coagulation Monitoring By Pharmacy) 1 each PRN DAILY PRN MC SEE COMMENTS; Start 12/27/16 at 14:00; Stop 12/28/16 at 12:28; Status DC Warfarin Sodium (Coumadin) 2 mg 1X WARF ONCE PO Last administered on 17:25; Start 12/28/16 at 16:00; Stop 12/28/16 at 16:01; Status DC Magnesium Sulfate/ Dextrose 100 ml @ 100 mls/hr 1X ONCE IV Last administered on 12/28/16 14:30; Start 12/28/16 at 14:30; Stop 12/28/16 at 15:29; Status DC Active Scripts Active Hydrocodone-Apap 5-325 (Hydrocodone Bit/Acetaminophen) 1 Each Tablet 1-2 Tab PO PRN Q4HRS PRN Calvin 5-325 Tablet (Acetaminophen/Hydrocodone Bitart) 1 Each Tablet 1-2 Tab PO Q4-6HRS Reported Hydrocodone-Apap 5-325 (Hydrocodone Bit/Acetaminophen) 1 Each Tablet 2 Tab PO PRN Q4HRS PRN Venlafaxine Hcl Er (Venlafaxine Hcl) 75 Mg Cap.er.24h 1 Cap PO DAILY Lasix (Furosemide) 40 Mg Tablet 1 Tab PO DAILY Xanax (Alprazolam) 0.5 Mg Tablet 0.25 Mg PO HS PRN PRN Tramadol-Acetaminophn 37.5-325 (Tramadol Hcl/Acetaminophen) 1 Each Tablet 1 Tab PO Q6HRS Reglan (Metoclopramide Hcl) 10 Mg Tablet 5 Mg PO BIDACBL Pantoprazole Sodium 40 Mg Tablet.dr 40 Tab PO DAILY Carvedilol 12.5 Mg Tablet 12.5 Mg PO BIDWMEALS Losartan Potassium 50 Mg Tablet 100 Mg PO DAILY Miralax (Polyethylene Glycol 3350) 17 Gm Powd.pack 17 Gm PO PRN DAILY Aspir 81 (Aspirin) 81 Mg Tablet.dr 81 Mg PO DAILY Klor-Con (Potassium Chloride) 20 Meq Packet 10 Meq PO DAILY Zocor (Simvastatin) 20 Mg Tablet 20 Mg PO DAILY Vitals/I & O Vital Sign - Last 24 Hours 12/28/16 12/28/16 12/28/16 12/28/16 09:14 11:12 14:55 17:25 Temp 97.5 97.9 97.5 97.9 Pulse 81 70 70 Resp 16 16 B/P (MAP) 104/50 (68) 109/53 (71) 109/53 Pulse Ox 96 97 100 O2 Delivery Nasal Cannula Nasal Cannula O2 Flow Rate 3.0 3.0 12/28/16 12/28/16 12/28/16 12/29/16 19:33 20:00 23:25 03:00 Temp 98.9 98.5 97.6 98.9 98.5 97.6 Pulse 101 106 99 Resp 18 18 18 B/P (MAP) 124/61 (82) 111/69 (83) 168/78 (108) Pulse Ox 94 95 94 O2 Delivery Nasal Cannula Nasal Cannula Nasal Cannula Nasal Cannula O2 Flow Rate 3.0 3.0 2.0 2.0 12/29/16 12/29/16 12/29/16 12/29/16 03:08 04:17 07:00 08:33 Temp 97.7 97.7 Pulse 94 94 Resp 18 B/P (MAP) 123/55 (77) 123/55 Pulse Ox 92 O2 Delivery Nasal Cannula Nasal Cannula Nasal Cannula O2 Flow Rate 2.0 3.0 Intake and Output 12/28/16 12/28/1617 15:00 23:00 07:00 Intake Total 260 ml 0 ml Output Total 400 ml Balance -140 ml 0 ml ALESSANDRO TELLO MD Dec 29, 2016 09:02
--- NOTE | 2016-12-29 09:40 | PDOC ---
SUBJECTIVE ROS CKD III doign same overall - maybe a little drowsy today CVS: no Orthopnea, no CP RESP: no SOB, no HUNTER GI: no Nausea, no Vomiting : no Dysuria, no Urgency OBJECTIVE Vital Signs Vital Signs Date Time Temp Pulse Resp B/P (MAP) Pulse Ox O2 Delivery O2 Flow Rate FiO2 12/29/16 08:33 94 123/55 12/29/16 07:00 97.7 18 92 Nasal Cannula 3.0 97.7 I & 0 Intake and Output 12/29/16 07:00 Intake Total 260 ml Output Total 400 ml Balance -140 ml Intake Oral 260 ml Output Urine Total 400 ml PHYSICAL EXAM Physical Exam GEN: Awake, Oriented x 0, more drowsy today but In no distress pre se EYES: Vision Unchanged, Conjunctiva Normal EN: No EN Drainage, Mucous Membranes moist NECK: no JVD, no JVP, Supple, no Thyromegaly CVS: S1S2, no Murmur, No Gallop, No Rub,no Edema; Left BKA RESP: no Rales, no Rhonchi,no Acc. Muscle Use GI: BS + ve, NO Bruit, Non Tender, Non Distended : no CVA tenderness, no Suprapubic Tenderness DIAGNOSIS/ASSESSMENT CKD STAGE 3-CR OF 1.4ish at baseline as noted in Oct 2016 URINARY RETENTION - Now with pacheco in place. Will need to see URO as OP HYPOKALEMIA - replaced and resolved Sev HypoMag - replaced and resolved Hypocalcemia - suspected due to low Mag; now better Will sign off - pl call with Qs COMMENT/RELEVANT DATA Meds Current Medications Medications (Trade) Dose Ordered Sig/Zoya Start Time Stop Time Status Last Admin Dose Admin Acetaminophen/ Hydrocodone Bitart (Lortab 5/325) 2 tab PRN Q4HRS PRN 12/25/16 18:45 12/29/16 03:08 2 TAB Alprazolam (Xanax) 0.25 mg Q8HRS PRN 12/25/16 18:45 12/29/16 05:16 0.25 MG Amino Acids/ Glycerin/ Electrolytes 1,000 ml @ 80 mls/hr [id number] 12/27/16 10:00 12/28/16 14:42 DC 12/28/16 10:55 80 MLS/HR Aspirin (Ecotrin) 81 mg DAILY 12/26/16 09:00 11/20/17 08:32 81 MG Calcium Gluconate (Calcium Gluconate) 1,000 mg Q2H 12/27/16 10:00 12/27/16 14:01 DC 12/27/16 16:02 1,000 MG Carvedilol (Coreg) 12.5 mg BIDWMEALS 12/26/16 08:00 12/29/16 08:33 12.5 MG Dextrose (Dextrose 50%-Water Syringe) 12.5 gm PRN Q15MIN PRN 12/25/16 18:45 Docusate Sodium (Colace) 100 mg PRN DAILY PRN 12/25/16 19:00 Furosemide (Lasix) 40 mg DAILY 12/26/16 09:00 12/27/16 09:28 DC 12/27/16 08:31 40 MG Heparin Sodium (Porcine) (Heparin Sodium) 1,100 unit PRN Q6HRS PRN 12/25/16 18:45 12/28/16 12:28 DC Heparin Sodium/ Dextrose 500 ml @ 0 mls/hr CONT PRN 12/25/16 18:45 12/28/16 12:28 DC 12/28/16 09:36 17.2 MLS/HR Info (Anti-Coagulation Monitoring By Pharmacy) 1 each PRN DAILY PRN 12/27/16 14:00 12/28/16 12:28 DC Insulin Aspart (NovoLOG) 0-7 UNITS TIDWMEALS 12/26/16 08:00 12/28/16 17:35 3 UNITS Magnesium Sulfate/ Dextrose 100 ml @ 100 mls/hr 1X ONCE 12/28/16 14:30 12/28/16 15:29 DC 12/28/16 14:30 100 MLS/HR Metoclopramide HCl (Reglan) 5 mg BIDACBL 12/26/16 07:30 12/29/16 05:16 5 MG Ondansetron HCl (Zofran) 4 mg PRN Q8HRS PRN 12/25/16 17:30 12/26/16 17:29 DC Pantoprazole Sodium (Protonix) 40 mg DAILYAC 12/26/16 07:30 12/29/16 05:16 40 MG Polyethylene Glycol (miraLAX PACKET) 17 gm PRN DAILY PRN 12/25/16 18:45 Potassium Chloride/Sodium Chloride 1,000 ml @ 75 mls/hr 1X ONCE 12/26/16 10:00 12/26/16 23:19 DC 12/26/16 11:33 75 MLS/HR Potassium Chloride (Klor-Con) 20 meq BIDACLD 12/27/16 11:30 12/27/16 22:00 DC 12/27/16 17:10 20 MEQ Simvastatin (Zocor) 20 mg QHS 12/25/16 21:00 12/28/16 19:34 20 MG Sodium Chloride 1,000 ml @ 125 mls/hr Q8H 12/25/16 17:18 12/26/16 09:51 DC 12/25/16 20:54 125 MLS/HR Venlafaxine HCl (Effexor Xr) 75 mg DAILY 12/26/16 09:00 12/29/16 08:32 75 MG Warfarin Sodium (Coumadin Per Pharmacy) 1 each PRN DAILY PRN 12/25/16 18:45 12/28/16 13:30 1 EACH Warfarin Sodium (Coumadin) 2 mg 1X WARF ONCE 12/28/16 16:00 12/28/16 16:01 DC 12/28/16 17:25 2 MG Lab Laboratory Tests Test 12/28/16 11:35 12/28/16 16:50 12/29/16 04:10 12/29/16 07:15 Glucose (Fingerstick) 222 mg/dL (70-99) 183 mg/dL (70-99) 148 mg/dL (70-99) White Blood Count 15.5 x10^3/uL (4.0-11.0) Red Blood Count 3.28 x10^6/uL (3.50-5.40) Hemoglobin 9.4 g/dL (12.0-15.5) Hematocrit 29.9 % (36.0-47.0) Mean Corpuscular Volume 91 fL (79-100) Mean Corpuscular Hemoglobin 29 pg (25-35) Mean Corpuscular Hemoglobin Concent 32 g/dL (31-37) Red Cell Distribution Width 15.4 % (11.5-14.5) Platelet Count 457 x10^3/uL (140-400) Neutrophils (%) (Auto) 72 % (31-73) Lymphocytes (%) (Auto) 15 % (24-48) Monocytes (%) (Auto) 12 % (0-9) Eosinophils (%) (Auto) 0 % (0-3) Basophils (%) (Auto) 1 % (0-3) Neutrophils # (Auto) 11.2 x10^3uL (1.8-7.7) Lymphocytes # (Auto) 2.3 x10^3/uL (1.0-4.8) Monocytes # (Auto) 1.9 x10^3/uL (0.0-1.1) Eosinophils # (Auto) 0.1 x10^3/uL (0.0-0.7) Basophils # (Auto) 0.1 x10^3/uL (0.0-0.2) Prothrombin Time 25.9 SEC (11.7-14.0) Prothromb Time International Ratio 2.5 (0.8-1.1) Sodium Level 137 mmol/L (136-145) Potassium Level 4.4 mmol/L (3.5-5.1) Chloride Level 101 mmol/L (98-107) Carbon Dioxide Level 30 mmol/L (21-32) Anion Gap 6 (6-14) Blood Urea Nitrogen 19 mg/dL (7-20) Creatinine 1.4 mg/dL (0.6-1.0) Estimated GFR (Cockcroft-Gault) 43.6 Glucose Level 130 mg/dL (70-99) Calcium Level 8.1 mg/dL (8.5-10.1) Phosphorus Level 2.7 mg/dL (2.6-4.7) Magnesium Level 1.9 mg/dL (1.8-2.4) Creatine Kinase 44 U/L (26-192) Albumin 1.9 g/dL (3.4-5.0) ALAN ARGUELLO MD Dec 29, 2016 09:40
--- NOTE | 2016-12-29 09:53 | PDOC ---
PROGRESS NOTES Subjective Subjective Patient lying in bed this am in NAD. Denies any chest discomfort. Reports slight difficulty with breathing. Patient is unsure if she feels strong enough to discuss discharge plans. No additional concerns at this time. Objective Objective Vital Signs Date Time Temp Pulse Resp B/P (MAP) Pulse Ox O2 Delivery O2 Flow Rate FiO2 12/29/16 08:49 Nasal Cannula 12/29/16 08:33 94 123/55 12/29/16 07:00 97.7 18 92 3.0 97.7 Intake and Output 12/29/16 06:59 Intake Total 260 ml Output Total 400 ml Balance -140 ml Intake Oral 260 ml Output Urine Total 400 ml Physical Exam COMMENT Awake, Alert, Oriented No Acute Distress Lungs- CTAB No change in Cardiac Exam No edema in LE b/l Assessment Assessment Problems Medical Problems: (1) Elevated troponin Status: Acute (2) Leukocytosis Status: Acute Plan Plan of Care CASSIDY, CKD, Acute Pulmonary Embolism- On Warfarin. Nephrology signed-off. Patient stable. Ischemic CM, s/p CABG- Patient continues to improve. Continue current medication regimen. Stable from a cardiac standpoint. 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 Labs Laboratory Tests Test 12/27/16 11:30 12/27/16 12:50 12/27/16 16:49 12/27/16 20:27 Glucose (Fingerstick) 198 mg/dL (70-99) 185 mg/dL (70-99) 207 mg/dL (70-99) Heparin Anti-Xa Act, Unfractionated 0.53 IU/mL (0.30-0.70) Test 12/28/16 07:32 12/28/16 08:00 12/28/16 11:35 12/28/16 16:50 Glucose (Fingerstick) 178 mg/dL (70-99) 222 mg/dL (70-99) 183 mg/dL (70-99) White Blood Count 19.1 x10^3/uL (4.0-11.0) Red Blood Count 3.44 x10^6/uL (3.50-5.40) Hemoglobin 10.1 g/dL (12.0-15.5) Hematocrit 31.3 % (36.0-47.0) Mean Corpuscular Volume 91 fL (79-100) Mean Corpuscular Hemoglobin 29 pg (25-35) Mean Corpuscular Hemoglobin Concent 32 g/dL (31-37) Red Cell Distribution Width 15.3 % (11.5-14.5) Platelet Count 502 x10^3/uL (140-400) Neutrophils (%) (Auto) 77 % (31-73) Lymphocytes (%) (Auto) 11 % (24-48) Monocytes (%) (Auto) 11 % (0-9) Eosinophils (%) (Auto) 0 % (0-3) Basophils (%) (Auto) 1 % (0-3) Neutrophils # (Auto) 14.6 x10^3uL (1.8-7.7) Lymphocytes # (Auto) 2.2 x10^3/uL (1.0-4.8) Monocytes # (Auto) 2.1 x10^3/uL (0.0-1.1) Eosinophils # (Auto) 0.0 x10^3/uL (0.0-0.7) Basophils # (Auto) 0.1 x10^3/uL (0.0-0.2) Prothrombin Time 26.8 SEC (11.7-14.0) Prothromb Time International Ratio 2.7 (0.8-1.1) Heparin Anti-Xa Act, Unfractionated 0.12 IU/mL (0.30-0.70) Sodium Level 136 mmol/L (136-145) Potassium Level 4.6 mmol/L (3.5-5.1) Chloride Level 100 mmol/L (98-107) Carbon Dioxide Level 30 mmol/L (21-32) Anion Gap 6 (6-14) Blood Urea Nitrogen 21 mg/dL (7-20) Creatinine 1.4 mg/dL (0.6-1.0) Estimated GFR (Cockcroft-Gault) 43.6 Glucose Level 191 mg/dL (70-99) Calcium Level 7.7 mg/dL (8.5-10.1) Phosphorus Level 3.0 mg/dL (2.6-4.7) Magnesium Level 0.8 mg/dL (1.8-2.4) Creatine Kinase 157 U/L (26-192) Albumin 2.3 g/dL (3.4-5.0) Test 12/29/16 04:10 12/29/16 07:15 White Blood Count 15.5 x10^3/uL (4.0-11.0) Red Blood Count 3.28 x10^6/uL (3.50-5.40) Hemoglobin 9.4 g/dL (12.0-15.5) Hematocrit 29.9 % (36.0-47.0) Mean Corpuscular Volume 91 fL (79-100) Mean Corpuscular Hemoglobin 29 pg (25-35) Mean Corpuscular Hemoglobin Concent 32 g/dL (31-37) Red Cell Distribution Width 15.4 % (11.5-14.5) Platelet Count 457 x10^3/uL (140-400) Neutrophils (%) (Auto) 72 % (31-73) Lymphocytes (%) (Auto) 15 % (24-48) Monocytes (%) (Auto) 12 % (0-9) Eosinophils (%) (Auto) 0 % (0-3) Basophils (%) (Auto) 1 % (0-3) Neutrophils # (Auto) 11.2 x10^3uL (1.8-7.7) Lymphocytes # (Auto) 2.3 x10^3/uL (1.0-4.8) Monocytes # (Auto) 1.9 x10^3/uL (0.0-1.1) Eosinophils # (Auto) 0.1 x10^3/uL (0.0-0.7) Basophils # (Auto) 0.1 x10^3/uL (0.0-0.2) Prothrombin Time 25.9 SEC (11.7-14.0) Prothromb Time International Ratio 2.5 (0.8-1.1) Sodium Level 137 mmol/L (136-145) Potassium Level 4.4 mmol/L (3.5-5.1) Chloride Level 101 mmol/L (98-107) Carbon Dioxide Level 30 mmol/L (21-32) Anion Gap 6 (6-14) Blood Urea Nitrogen 19 mg/dL (7-20) Creatinine 1.4 mg/dL (0.6-1.0) Estimated GFR (Cockcroft-Gault) 43.6 Glucose Level 130 mg/dL (70-99) Calcium Level 8.1 mg/dL (8.5-10.1) Phosphorus Level 2.7 mg/dL (2.6-4.7) Magnesium Level 1.9 mg/dL (1.8-2.4) Creatine Kinase 44 U/L (26-192) Albumin 1.9 g/dL (3.4-5.0) Glucose (Fingerstick) 148 mg/dL (70-99) Laboratory Tests Test 12/28/16 11:35 12/28/16 16:50 12/29/16 04:10 12/29/16 07:15 Glucose (Fingerstick) 222 mg/dL (70-99) 183 mg/dL (70-99) 148 mg/dL (70-99) White Blood Count 15.5 x10^3/uL (4.0-11.0) Red Blood Count 3.28 x10^6/uL (3.50-5.40) Hemoglobin 9.4 g/dL (12.0-15.5) Hematocrit 29.9 % (36.0-47.0) Mean Corpuscular Volume 91 fL (79-100) Mean Corpuscular Hemoglobin 29 pg (25-35) Mean Corpuscular Hemoglobin Concent 32 g/dL (31-37) Red Cell Distribution Width 15.4 % (11.5-14.5) Platelet Count 457 x10^3/uL (140-400) Neutrophils (%) (Auto) 72 % (31-73) Lymphocytes (%) (Auto) 15 % (24-48) Monocytes (%) (Auto) 12 % (0-9) Eosinophils (%) (Auto) 0 % (0-3) Basophils (%) (Auto) 1 % (0-3) Neutrophils # (Auto) 11.2 x10^3uL (1.8-7.7) Lymphocytes # (Auto) 2.3 x10^3/uL (1.0-4.8) Monocytes # (Auto) 1.9 x10^3/uL (0.0-1.1) Eosinophils # (Auto) 0.1 x10^3/uL (0.0-0.7) Basophils # (Auto) 0.1 x10^3/uL (0.0-0.2) Prothrombin Time 25.9 SEC (11.7-14.0) Prothromb Time International Ratio 2.5 (0.8-1.1) Sodium Level 137 mmol/L (136-145) Potassium Level 4.4 mmol/L (3.5-5.1) Chloride Level 101 mmol/L (98-107) Carbon Dioxide Level 30 mmol/L (21-32) Anion Gap 6 (6-14) Blood Urea Nitrogen 19 mg/dL (7-20) Creatinine 1.4 mg/dL (0.6-1.0) Estimated GFR (Cockcroft-Gault) 43.6 Glucose Level 130 mg/dL (70-99) Calcium Level 8.1 mg/dL (8.5-10.1) Phosphorus Level 2.7 mg/dL (2.6-4.7) Magnesium Level 1.9 mg/dL (1.8-2.4) Creatine Kinase 44 U/L (26-192) Albumin 1.9 g/dL (3.4-5.0) Microbiology 12/25/16 Blood Culture - Preliminary, Resulted NO GROWTH AFTER 3 DAYS Medications Current Medications Sodium Chloride 1,000 ml @ 999 mls/hr Q1H1M IV Last administered on 18:03; Start 12/25/16 at 16:09; Stop 12/25/16 at 23:50; Status DC Ondansetron HCl (Zofran) 4 mg PRN Q8HRS PRN IV NAUSEA/VOMITING; Start at 17:30; Stop 12/26/16 at 17:29; Status DC Sodium Chloride 1,000 ml @ 125 mls/hr Q8H IV Last administered on 12/25/16 20:54; Start 12/25/16 at 17:18; Stop 12/26/16 at 09:51; Status DC Heparin Sodium/ Dextrose 500 ml @ 0 mls/hr CONT PRN IV SEE I/O RECORD Last administered on 12/28/16 09:36; Start 12/25/16 at 18:45; Stop 12/28/16 at 12 :28; Status DC Heparin Sodium (Porcine) (Heparin Sodium) 2,150 unit PRN Q6HRS PRN IV FOR UFH LEVEL LESS THAN 0.2 Last administered on 12/28/16 09:33; Start 12/25/16 at 18 :45; Stop 12/28/16 at 12:28; Status DC Heparin Sodium (Porcine) (Heparin Sodium) 1,100 unit PRN Q6HRS PRN IV FOR UFH LEVEL 0.2 - 0.29; Start 12/25/16 at 18:45; Stop 12/28/16 at 12:28; Status DC Warfarin Sodium (Coumadin Per Pharmacy) 1 each PRN DAILY PRN MC PER PROTOCOL Last administered on 12/28/16 13:30; Start 12/25/16 at 18:45 Potassium Chloride (Klor-Con) 40 meq 1X ONCE PO Last administered on 19:24; Start 12/25/16 at 18:45; Stop 12/25/16 at 18:46; Status DC Alprazolam (Xanax) 0.25 mg Q8HRS PRN PO ANXIETY Last administered on 05:16; Start 12/25/16 at 18:45 Aspirin (Ecotrin) 81 mg DAILY PO Last administered on 12/29/16 08:32; Start 12/26/16 at 09:00 Carvedilol (Coreg) 12.5 mg BIDWMEALS PO Last administered on 12/29/16 08:33; Start 12/26/16 at 08:00 Furosemide (Lasix) 40 mg DAILY PO Last administered on 12/27/16 08:31; Start 12/26/16 at 09:00; Stop 12/27/16 at 09:28; Status DC Acetaminophen/ Hydrocodone Bitart (Lortab 5/325) 2 tab PRN Q4HRS PRN PO PAIN Last administered on 12/29/16 03:08; Start 12/25/16 at 18:45 Metoclopramide HCl (Reglan) 5 mg BIDACBL PO Last administered on 12/29/16 05: 16; Start 12/26/16 at 07:30 Pantoprazole Sodium (Protonix) 40 mg DAILYAC PO Last administered on 05:16; Start 12/26/16 at 07:30 Polyethylene Glycol (miraLAX PACKET) 17 gm PRN DAILY PRN PO CONSTIPATION; Start 12/25/16 at 18:45 Simvastatin (Zocor) 20 mg QHS PO Last administered on 12/28/16 19:34; Start 12/25/16 at 21:00 Potassium Chloride (Klor-Con) 10 meq [id number] PO Last administered on 07:51; Start 12/26/16 at 08:00; Stop 12/28/16 at 14:42; Status DC Venlafaxine HCl (Effexor Xr) 75 mg DAILY PO Last administered on 12/29/16 08: 32; Start 12/26/16 at 09:00 Warfarin Sodium (Coumadin) 5 mg 1X WARF ONCE PO Last administered on 19:25; Start 12/25/16 at 19:00; Stop 12/25/16 at 19:01; Status DC Insulin Aspart (NovoLOG) 0-7 UNITS TIDWMEALS SQ Last administered on 17:35; Start 12/26/16 at 08:00 Dextrose (Dextrose 50%-Water Syringe) 12.5 gm PRN Q15MIN PRN IV SEE COMMENTS; Start 12/25/16 at 18:45 Docusate Sodium (Colace) 100 mg PRN DAILY PRN PO CONSTIPATION; Start 12/25/16 at 19:00 Potassium Chloride (Klor-Con) 40 meq 1X ONCE PO Last administered on 11:33; Start 12/26/16 at 10:00; Stop 12/26/16 at 10:01; Status DC Potassium Chloride/Sodium Chloride 1,000 ml @ 75 mls/hr 1X ONCE IV Last administered on 12/26/16 11:33; Start 12/26/16 at 10:00; Stop 12/26/16 at 23 :19; Status DC Warfarin Sodium (Coumadin) 5 mg 1X WARF ONCE PO Last administered on 16:46; Start 12/26/16 at 16:00; Stop 12/26/16 at 16:01; Status DC Potassium Chloride (Klor-Con) 20 meq BIDACLD PO Last administered on 17:10; Start 12/27/16 at 11:30; Stop 12/27/16 at 22:00; Status DC Amino Acids/ Glycerin/ Electrolytes 1,000 ml @ 80 mls/hr [id number] IV Last administered on 12/28/16 10:55; Start 12/27/16 at 10:00; Stop 12/28/16 at 14 :42; Status DC Magnesium Sulfate/ Dextrose 50 ml @ 25 mls/hr PRN DAILY PRN IV for Mag < 1.7 on am labs Last administered on 12/28/16 17:24; Start 12/27/16 at 09:30 Calcium Gluconate (Calcium Gluconate) 1,000 mg Q2H IVP Last administered on 16:02; Start 12/27/16 at 10:00; Stop 12/27/16 at 14:01; Status DC Warfarin Sodium (Coumadin) 3 mg 1X WARF ONCE PO Last administered on 17:11; Start 12/27/16 at 16:00; Stop 12/27/16 at 16:01; Status DC Info (Anti-Coagulation Monitoring By Pharmacy) 1 each PRN DAILY PRN MC SEE COMMENTS; Start 12/27/16 at 14:00; Stop 12/28/16 at 12:28; Status DC Warfarin Sodium (Coumadin) 2 mg 1X WARF ONCE PO Last administered on 17:25; Start 12/28/16 at 16:00; Stop 12/28/16 at 16:01; Status DC Magnesium Sulfate/ Dextrose 100 ml @ 100 mls/hr 1X ONCE IV Last administered on 12/28/16 14:30; Start 12/28/16 at 14:30; Stop 12/28/16 at 15:29; Status DC Active Scripts Active Hydrocodone-Apap 5-325 (Hydrocodone Bit/Acetaminophen) 1 Each Tablet 1-2 Tab PO PRN Q4HRS PRN Belle 5-325 Tablet (Acetaminophen/Hydrocodone Bitart) 1 Each Tablet 1-2 Tab PO Q4-6HRS Reported Hydrocodone-Apap 5-325 (Hydrocodone Bit/Acetaminophen) 1 Each Tablet 2 Tab PO PRN Q4HRS PRN Venlafaxine Hcl Er (Venlafaxine Hcl) 75 Mg Cap.er.24h 1 Cap PO DAILY Lasix (Furosemide) 40 Mg Tablet 1 Tab PO DAILY Xanax (Alprazolam) 0.5 Mg Tablet 0.25 Mg PO HS PRN PRN Tramadol-Acetaminophn 37.5-325 (Tramadol Hcl/Acetaminophen) 1 Each Tablet 1 Tab PO Q6HRS Reglan (Metoclopramide Hcl) 10 Mg Tablet 5 Mg PO BIDACBL Pantoprazole Sodium 40 Mg Tablet.dr 40 Tab PO DAILY Carvedilol 12.5 Mg Tablet 12.5 Mg PO BIDWMEALS Losartan Potassium 50 Mg Tablet 100 Mg PO DAILY Miralax (Polyethylene Glycol 3350) 17 Gm Powd.pack 17 Gm PO PRN DAILY Aspir 81 (Aspirin) 81 Mg Tablet.dr 81 Mg PO DAILY Klor-Con (Potassium Chloride) 20 Meq Packet 10 Meq PO DAILY Zocor (Simvastatin) 20 Mg Tablet 20 Mg PO DAILY Vitals/I & O Vital Sign - Last 24 Hours 12/28/16 12/28/16 12/28/16 12/28/16 11:12 14:55 17:25 19:33 Temp 97.5 97.9 98.9 97.5 97.9 98.9 Pulse 81 70 70 101 Resp 16 16 18 B/P (MAP) 104/50 (68) 109/53 (71) 109/53 124/61 (82) Pulse Ox 97 100 94 O2 Delivery Nasal Cannula Nasal Cannula Nasal Cannula O2 Flow Rate 3.0 3.0 3.0 12/28/16 12/28/16 12/29/16 12/29/16 20:00 23:25 03:00 03:08 Temp 98.5 97.6 98.5 97.6 Pulse 106 99 Resp 18 18 B/P (MAP) 111/69 (83) 168/78 (108) Pulse Ox 95 94 O2 Delivery Nasal Cannula Nasal Cannula Nasal Cannula Nasal Cannula O2 Flow Rate 3.0 2.0 2.0 12/29/16 12/29/16 12/29/16 12/29/16 04:17 07:00 08:33 08:49 Temp 97.7 97.7 Pulse 94 94 Resp 18 B/P (MAP) 123/55 (77) 123/55 Pulse Ox 92 O2 Delivery Nasal Cannula Nasal Cannula Nasal Cannula O2 Flow Rate 2.0 3.0 Intake and Output 12/28/16 12/28/16 12/29/16 14:59 22:59 06:59 Intake Total 260 ml 0 ml Output Total 400 ml Balance -140 ml 0 ml YVONNE WOODARD MD Dec 29, 2016 09:53
[2016-12-29 10:51] VITALS: BP 98/45
[2016-12-29 15:05] VITALS: BP 103/48
[2016-12-29] MEDS ORDERED: WARFARIN 3 MG TABLET. PO ONE (16:00)
== END 2016-12-29 16:26 | disposition home health service (06) | DRG 682 ==
LOC: ER 15:44 → 6 SOUTH 17:21
PROVIDERS: ADMIT Internal Medicine; ATTEND Internal Medicine
DX: N17.0 Acute kidney failure with tubular necrosis (principal); I26.99 Other pulmonary embolism without acute cor pulmonale; J96.01 Acute respiratory failure with hypoxia; C78.00 Secondary malignant neoplasm of unspecified lung; D68.59 Other primary thrombophilia; I13.0 Hypertensive heart and chronic kidney disease with heart failure and stage 1 through stage 4 chronic kidney disease, or unspecified chronic kidney disease; I27.20 Pulmonary hypertension, unspecified; I50.9 Heart failure, unspecified; E83.51 Hypocalcemia; E83.42 Hypomagnesemia; C25.0 Malignant neoplasm of head of pancreas; N18.4 Chronic kidney disease, stage 4 (severe); D63.0 Anemia in neoplastic disease; E87.6 Hypokalemia; Z51.5 Encounter for palliative care; R33.9 Retention of urine, unspecified; J44.9 Chronic obstructive pulmonary disease, unspecified; I25.10 Atherosclerotic heart disease of native coronary artery without angina pectoris; I25.5 Ischemic cardiomyopathy; D72.829 Elevated white blood cell count, unspecified; F32.9 Major depressive disorder, single episode, unspecified; Z92.21 Personal history of antineoplastic chemotherapy; Z95.1 Presence of aortocoronary bypass graft; Z87.891 Personal history of nicotine dependence; Z89.512 Acquired absence of left leg below knee; I25.2 Old myocardial infarction; Z87.440 Personal history of urinary (tract) infections; Z90.710 Acquired absence of both cervix and uterus; Z88.0 Allergy status to penicillin; Z86.718 Personal history of other venous thrombosis and embolism; Z79.01 Long term (current) use of anticoagulants; Z83.3 Family history of diabetes mellitus
CPT/HCPCS: 36415; 71010; 71020; 71250; 78582; 80048; 80053; 80069; 81001; 82040; 82310; 82550; 82962; 83036; 83605; 83735; 83970; 84443; 84484; 85007; 85025; 85520; 85610; 85730; 87040; 93005; 93970; 96360; 96374; A9540; A9558; J0610; J1644; J1815; J3475; J7030; J7060; J8597; 99285-25

== ENCOUNTER → 2017-02-13 | Outpatient (CLI) | payer MEDICARE ==
[2017-02-13 22:44] LABS: BILIRUBIN,URINE NEGATIVE (NEG); CLARITY,URINE CLEAR; COLOR,URINE YELLOW; GLUCOSE,URINE NEGATIVE (NEG); NITRITE,URINE NEGATIVE (NEG); PROTEIN,URINE NEGATIVE (NEG-TRACE); UROBILINOGEN,URINE 0.2 mg/dL (0.2 mg/dL)
[2017-02-13 22:54] LABS: RBC,URINE 0 /HPF (0-2)
[2017-02-13 22:55] LABS: BACTERIA,URINE FEW /HPF (0-FEW); SQUAMOUS EPITHELIAL CELL,UR FEW /LPF
== END | disposition home or self-care (01) ==
LOC: SPEC 12:39
DX: N39.0 Urinary tract infection, site not specified (principal)
CPT/HCPCS: 81001; 87086

== ENCOUNTER → 2017-02-25 | Outpatient (CLI) | payer OTHER ==
[~2017-02-25] MED LIST changes: -ALPR0.5T PO; -ASPI-482 PO; -ASPI-612 PO; -CARV12.52 PO; -CARV6.252 PO; -ESCITALOPRAM OX20 MG PO; -FERR-26 PO; -FURO-68 PO; -FURO40TA4 PO; -HYDR-2758 PO; -HYDR-971 PO; +IOHEXOL 240 MG/ML 50ML VIAL. PO; -LEXAPRO10 MG PO; -LOSA50TA6 PO; -METO10TA81 PO; -PANT40TA5 PO; -PHEN95TA13 PO; -POLY17PO29 PO; -POTA20PA PO; -POTA20TA12 PO; -PSYL1PAC7 PO; -SIMV20TA PO; -SIMV20TA3 PO; -TRAM1TAB4 PO; -VENL75CA6 PO; -VIT1TABL71 PO
== END | disposition home or self-care (01) ==
LOC: CT 14:12
DX: C25.9 Malignant neoplasm of pancreas, unspecified (principal); K86.89 Other specified diseases of pancreas; I70.0 Atherosclerosis of aorta; Z95.1 Presence of aortocoronary bypass graft; Z90.49 Acquired absence of other specified parts of digestive tract
CPT/HCPCS: 71250; 74176; Q9966

== ENCOUNTER 2017-03-24 14:33 | Inpatient (IN) | payer OTHER ==
[2017-03-24] MEDS: IV NORMAL SALINE 500ML BAG 500 ML IV ×2 (16:30→18:45)
[2017-03-24] MEDS: ONDANSETRON PF 4 MG/2 ML VIAL. IV (16:31)
[2017-03-24] MEDS: fentaNYL PF VIAL 100 MCG/2 ML VIAL IV (16:32)
[2017-03-24 16:53] LABS: BASO % 1 % (0-3); EOS % 1 % (0-3); HEMATOCRIT 23.5 % (36.0-47.0); HEMOGLOBIN 7.7 g/dL (12.0-15.5); LYMPH # 0.6 x10^3/uL (1.0-4.8); LYMPH % 71 % (24-48); MEAN CORPUSCULAR HEMOGLOBIN 33 pg (25-35); MEAN CORPUSCULAR HGB CONC 33 g/dL (31-37); MEAN CORPUSCULAR VOLUME 100 fL (79-100); MONO % 1 % (0-9); NEUT # 0.2 x10^3uL (1.8-7.7); NEUT % 27 % (31-73); RED BLOOD COUNT 2.36 x10^6/uL (3.50-5.40); RED CELL DISTRIBUTION WIDTH 21.5 % (11.5-14.5)
[2017-03-24 17:02] LABS: ADD MAN DIFF? YES; PLATELET COUNT 23 x10^3/uL (140-400); WHITE BLOOD COUNT 0.8 x10^3/uL (4.0-11.0)
[2017-03-24 17:09] LABS: ANION GAP 9 (6-14); BLOOD UREA NITROGEN 22 mg/dL (7-20); BUN/CREATININE RATIO 12 (6-20); CALCIUM 8.2 mg/dL (8.5-10.1); CARBON DIOXIDE 33 mmol/L (21-32); CHLORIDE 99 mmol/L (98-107); CREATININE 1.8 mg/dL (0.6-1.0); GFR 32.5; GLUCOSE 129 mg/dL (70-99); POTASSIUM 4.2 mmol/L (3.5-5.1); SODIUM 141 mmol/L (136-145)
[2017-03-24 17:14] LABS: TROPONINI < 0.017 ng/mL (0.000-0.055)
[2017-03-24 17:16] LABS: ALBUMIN/GLOBULIN RATIO 0.7 (1.0-1.7); ALK PHOS 148 U/L (46-116); ALT (SGPT) 49 U/L (14-59); AST (SGOT) 78 U/L (15-37); LIPASE 52 U/L (73-393); MAGNESIUM 0.8 mg/dL (1.8-2.4); TOTAL BILIRUBIN 0.5 mg/dL (0.2-1.0); TOTAL PROTEIN 4.8 g/dL (6.4-8.2)
[2017-03-24 17:27] LABS: LACTIC ACID 4.3 mmol/L (0.4-2.0)
[2017-03-24] MEDS ORDERED: ACETAMINOPHEN 325 MG TABLET. PO (19:00)
[2017-03-24] MEDS ORDERED: MORPHINE SULFATE 2 MG/ML DISP.SYRIN. IV (19:00)
[2017-03-24] MEDS ORDERED: ONDANSETRON PF 4 MG/2 ML VIAL. IV (19:00)
[2017-03-24 19:36] LABS: % BANDS 3 % (0-9); % EOS 3 % (0-5); % LYMPHS 68 % (24-48); % SEGS 26 % (35-66); ANISOCYTOSIS MOD; NUCLEATED RBC 1; OVALOCYTES FEW; PLT ESTIMATE DECREASED (ADEQUATE); SCHISTOCYTES OCC
[2017-03-24 19:37] LABS: HYPOCHROMIA SLIGHT; TEAR DROP CELLS OCC
[2017-03-24 22:03] LABS: LACTIC ACID 5.6 mmol/L (0.4-2.0)
[2017-03-24] MEDS ORDERED: VANCOMYCIN 1 GM in IV DEXTROSE 5% 250 ML IV (22:15)
[2017-03-24] MEDS: IV NORMAL SALINE 1000ML BAG 1,000 ML IV (23:04)
[2017-03-24] MEDS: VANCOMYCIN PER PHARMACY MC (23:11)
[2017-03-25] MEDS ORDERED: POLYETHYLENE GLYCOL 3350 17 GM PACKET. PO (00:15)
[2017-03-25] MEDS ORDERED: ONDANSETRON ODT 4 MG TAB.RAPDIS. PO (00:15)
[2017-03-25] MEDS ORDERED: NON FORMULARY ITEM (Tramadol Hcl/Acetaminophen (Tramadol-Acetaminophn 37.5-325) 1 TAB) PO (00:15)
[2017-03-25] MEDS ORDERED: traMADol 50 MG TABLET PO (00:45)
[2017-03-25] MEDS: VANCOMYCIN PER PHARMACY MC ×2 (01:07→01:10)
[2017-03-25] MEDS: VANCOMYCIN 1.75 GM in IV DEXTROSE 5 %-0.2 % NACL 500 ML IV (01:38)
[2017-03-25] MEDS: diphenhydrAMINE HCL 25 MG CAPSULE PO (01:39)
[2017-03-25] MEDS: HYDROcodone/APAP 5/325MG 1 TAB TABLET PO ×3 (01:39→12:17)
[2017-03-25 03:03] LABS: INFLUENZA A PATIENT NEGATIVE (NEGATIVE); INFLUENZA B PATIENT NEGATIVE (NEGATIVE); OBC FLU VALID
[2017-03-25 03:12] LABS: ADD MAN DIFF? NO
[2017-03-25 03:14] LABS: BASO % 0 % (0-3); EOS % 0 % (0-3); LYMPH % 62 % (24-48); MEAN CORPUSCULAR HEMOGLOBIN 33 pg (25-35); MEAN CORPUSCULAR HGB CONC 34 g/dL (31-37); MEAN CORPUSCULAR VOLUME 99 fL (79-100); MONO % 1 % (0-9); NEUT # 0.6 x10^3uL (1.8-7.7); NEUT % 37 % (31-73); RED CELL DISTRIBUTION WIDTH 21.5 % (11.5-14.5)
[2017-03-25 03:20] LABS: INR 2.2 (0.8-1.1); PROTHROMBIN TIME PATIENT 22.7 SEC (11.7-14.0)
[2017-03-25 03:22] LABS: ANION GAP 8 (6-14); BLOOD UREA NITROGEN 21 mg/dL (7-20); CALCIUM 7.3 mg/dL (8.5-10.1); CARBON DIOXIDE 30 mmol/L (21-32); CHLORIDE 99 mmol/L (98-107); CREATININE 1.7 mg/dL (0.6-1.0); GFR 34.7; GLUCOSE 124 mg/dL (70-99); POTASSIUM 3.6 mmol/L (3.5-5.1); SODIUM 137 mmol/L (136-145)
[2017-03-25 03:31] LABS: LACTIC ACID 3.3 mmol/L (0.4-2.0)
[2017-03-25 04:05] LABS: HEMATOCRIT 19.9 % (36.0-47.0); HEMOGLOBIN 6.7 g/dL (12.0-15.5); PLATELET COUNT 17 x10^3/uL (140-400); WHITE BLOOD COUNT 1.6 x10^3/uL (4.0-11.0)
[2017-03-25] MEDS: IV NORMAL SALINE 1000ML BAG 1,000 ML IV ×2 (04:47→14:59)
[2017-03-25] MEDS: CARVEDILOL 12.5 MG TABLET. PO ×2 (07:57→17:42)
[2017-03-25] MEDS: PANTOPRAZOLE 40 MG TABLET.DR. PO (07:58)
[2017-03-25] MEDS: ALPRAZolam 0.5 MG TABLET PO (07:58)
[2017-03-25] MEDS: METOCLOPRAMIDE 10 MG TABLET. PO ×2 (07:59→12:16)
[2017-03-25] MEDS: FUROSEMIDE 40 MG TABLET. PO (07:59)
[2017-03-25] MEDS: POTASSIUM CHLORIDE 10 MEQ TABLET.ER. PO (08:00)
[2017-03-25] MEDS: VENLAFAXINE XR 37.5 MG CAP.ER.24H. PO (08:00)
[2017-03-25] MEDS: ASPIRIN ENTERIC COATED 81 MG TABLET.DR. PO (08:02)
[2017-03-25] MEDS ORDERED: SENNOSIDES 8.6 MG TABLET PO (09:15)
[2017-03-25] MEDS: MAGNESIUM OXIDE 400 MG TABLET PO ×2 (10:23→21:21)
[2017-03-25] MEDS: DOCUSATE SODIUM 100 MG CAPSULE. PO ×2 (10:23→21:21)
[2017-03-25 12:15] LABS: IMMEDIATE SPIN CROSSMATCH 1 1
[2017-03-25 15:09] LABS: IMMEDIATE SPIN CROSSMATCH 1
[2017-03-25] MEDS ORDERED: WARFARIN 2 MG TABLET. PO (16:00)
[2017-03-25] MEDS: SIMVASTATIN 20 MG TABLET PO (21:21)
[2017-03-25 21:36] LABS: POC GLUCOSE 178 mg/dL (70-99)
[2017-03-25] MEDS ORDERED: VANCOMYCIN 1 GM in IV 1/2 NORMAL SALINE 250 ML IV (23:30)
[2017-03-26] MEDS: HYDROcodone/APAP 5/325MG 1 TAB TABLET PO (00:11)
[2017-03-26 05:27] LABS: ADD MAN DIFF? NO
[2017-03-26 05:30] LABS: BASO % 0 % (0-3); EOS % 1 % (0-3); HEMATOCRIT 22.8 % (36.0-47.0); HEMOGLOBIN 7.8 g/dL (12.0-15.5); LYMPH # 0.9 x10^3/uL (1.0-4.8); LYMPH % 45 % (24-48); MEAN CORPUSCULAR HEMOGLOBIN 33 pg (25-35); MEAN CORPUSCULAR HGB CONC 34 g/dL (31-37); MEAN CORPUSCULAR VOLUME 97 fL (79-100); MONO # 0.1 x10^3/uL (0.0-1.1); MONO % 4 % (0-9); NEUT % 51 % (31-73); PLATELET COUNT 51 x10^3/uL (140-400); RED BLOOD COUNT 2.34 x10^6/uL (3.50-5.40); RED CELL DISTRIBUTION WIDTH 18.9 % (11.5-14.5); WHITE BLOOD COUNT 2.1 x10^3/uL (4.0-11.0)
[2017-03-26 06:01] LABS: ANION GAP 8 (6-14); BLOOD UREA NITROGEN 19 mg/dL (7-20); CARBON DIOXIDE 30 mmol/L (21-32); CHLORIDE 103 mmol/L (98-107); CREATININE 1.5 mg/dL (0.6-1.0); GFR 40.1; GLUCOSE 99 mg/dL (70-99); SODIUM 141 mmol/L (136-145)
[2017-03-26 06:05] LABS: POTASSIUM 2.9 mmol/L (3.5-5.1)
[2017-03-26] MEDS: POTASSIUM CHLORIDE 10 MEQ TABLET.ER. PO ×2 (06:36→08:08)
[2017-03-26] MEDS: METOCLOPRAMIDE 10 MG TABLET. PO ×2 (06:36→12:24)
[2017-03-26] MEDS: PANTOPRAZOLE 40 MG TABLET.DR. PO (06:36)
[2017-03-26] MEDS: DOCUSATE SODIUM 100 MG CAPSULE. PO ×2 (08:08→21:44)
[2017-03-26] MEDS: FUROSEMIDE 40 MG TABLET. PO (08:08)
[2017-03-26] MEDS: CARVEDILOL 12.5 MG TABLET. PO ×2 (08:08→17:38)
[2017-03-26] MEDS: VENLAFAXINE XR 37.5 MG CAP.ER.24H. PO (08:08)
[2017-03-26] MEDS: MAGNESIUM OXIDE 400 MG TABLET PO ×2 (08:09→21:44)
[2017-03-26 13:57] LABS: POTASSIUM 3.5 mmol/L (3.5-5.1)
[2017-03-26] MEDS: WARFARIN 2 MG TABLET. PO (17:38)
[2017-03-26] MEDS: SIMVASTATIN 20 MG TABLET PO (21:44)
[2017-03-26] MEDS: TBO-FILGRASTIM 480 MCG/0.8 ML SYRINGE. SQ (21:45)
[2017-03-26] MEDS: ACETAMINOPHEN 325 MG TABLET. PO (21:52)
[2017-03-26] MEDS: ALPRAZolam 0.5 MG TABLET PO (21:53)
[2017-03-27] MEDS: ALPRAZolam 0.5 MG TABLET PO (07:38)
[2017-03-27] MEDS: PANTOPRAZOLE 40 MG TABLET.DR. PO (07:38)
[2017-03-27] MEDS: METOCLOPRAMIDE 10 MG TABLET. PO ×2 (07:38→11:30)
[2017-03-27 08:03] LABS: ADD MAN DIFF? NO
[2017-03-27 08:10] LABS: BASO % 0 % (0-3); EOS # 0.1 x10^3/uL (0.0-0.7); EOS % 1 % (0-3); HEMATOCRIT 27.5 % (36.0-47.0); HEMOGLOBIN 9.4 g/dL (12.0-15.5); LYMPH # 1.3 x10^3/uL (1.0-4.8); LYMPH % 16 % (24-48); MEAN CORPUSCULAR HEMOGLOBIN 33 pg (25-35); MEAN CORPUSCULAR HGB CONC 34 g/dL (31-37); MEAN CORPUSCULAR VOLUME 97 fL (79-100); MONO # 0.5 x10^3/uL (0.0-1.1); MONO % 6 % (0-9); NEUT # 6.3 x10^3uL (1.8-7.7); NEUT % 77 % (31-73); PLATELET COUNT 39 x10^3/uL (140-400); RED BLOOD COUNT 2.83 x10^6/uL (3.50-5.40); RED CELL DISTRIBUTION WIDTH 18.9 % (11.5-14.5); WHITE BLOOD COUNT 8.1 x10^3/uL (4.0-11.0)
[2017-03-27 08:18] LABS: ANION GAP 10 (6-14); BLOOD UREA NITROGEN 16 mg/dL (7-20); CALCIUM 7.7 mg/dL (8.5-10.1); CARBON DIOXIDE 26 mmol/L (21-32); CHLORIDE 101 mmol/L (98-107); CREATININE 1.3 mg/dL (0.6-1.0); GFR 47.3; GLUCOSE 107 mg/dL (70-99); POTASSIUM 3.7 mmol/L (3.5-5.1); SODIUM 137 mmol/L (136-145)
[2017-03-27 08:24] LABS: INR 1.7 (0.8-1.1)
[2017-03-27] MEDS: FUROSEMIDE 40 MG TABLET. PO (09:19)
[2017-03-27] MEDS: POTASSIUM CHLORIDE 10 MEQ TABLET.ER. PO (09:19)
[2017-03-27] MEDS: MAGNESIUM OXIDE 400 MG TABLET PO (09:19)
[2017-03-27] MEDS: VENLAFAXINE XR 37.5 MG CAP.ER.24H. PO (09:19)
[2017-03-27] MEDS: DOCUSATE SODIUM 100 MG CAPSULE. PO (09:19)
[2017-03-27] MEDS: CARVEDILOL 12.5 MG TABLET. PO (09:19)
[2017-03-27 17:19] LABS: C DIFF BY PCR Negative (Negative)
== END 2017-03-27 13:30 | disposition home health service (06) | DRG 808 ==
LOC: ER 14:33 → 4 NORTH 18:03
PROC: 30233R1 Transfusion of Nonautologous Platelets into Peripheral Vein, Percutaneous Approach (ICD-10-PCS; principal; 2017-03-24)
PROC: 30233N1 Transfusion of Nonautologous Red Blood Cells into Peripheral Vein, Percutaneous Approach (ICD-10-PCS; 2017-03-24)
DX: D61.818 Other pancytopenia (principal); E43 Unspecified severe protein-calorie malnutrition; K56.609 Unspecified intestinal obstruction, unspecified as to partial versus complete obstruction; C79.51 Secondary malignant neoplasm of bone; C78.00 Secondary malignant neoplasm of unspecified lung; I13.0 Hypertensive heart and chronic kidney disease with heart failure and stage 1 through stage 4 chronic kidney disease, or unspecified chronic kidney disease; E87.2 Acidosis; K56.7 Ileus, unspecified; I50.9 Heart failure, unspecified; C25.9 Malignant neoplasm of pancreas, unspecified; D61.810 Antineoplastic chemotherapy induced pancytopenia; N18.3 Chronic kidney disease, stage 3 (moderate); F32.9 Major depressive disorder, single episode, unspecified; I25.10 Atherosclerotic heart disease of native coronary artery without angina pectoris; Z51.5 Encounter for palliative care; T45.1X5A Adverse effect of antineoplastic and immunosuppressive drugs, initial encounter; I27.20 Pulmonary hypertension, unspecified; J44.9 Chronic obstructive pulmonary disease, unspecified; K59.00 Constipation, unspecified; Z86.718 Personal history of other venous thrombosis and embolism; I25.2 Old myocardial infarction; Z90.49 Acquired absence of other specified parts of digestive tract; Z90.710 Acquired absence of both cervix and uterus; Z95.1 Presence of aortocoronary bypass graft; Z89.512 Acquired absence of left leg below knee; Z88.0 Allergy status to penicillin; Z86.711 Personal history of pulmonary embolism; Z80.0 Family history of malignant neoplasm of digestive organs; Z68.23 Body mass index [BMI] 23.0-23.9, adult; Z99.81 Dependence on supplemental oxygen; Z87.440 Personal history of urinary (tract) infections; Z87.11 Personal history of peptic ulcer disease; Z87.891 Personal history of nicotine dependence; Z80.1 Family history of malignant neoplasm of trachea, bronchus and lung; Z83.3 Family history of diabetes mellitus; Z79.899 Other long term (current) drug therapy; Z79.82 Long term (current) use of aspirin; Z79.01 Long term (current) use of anticoagulants
CPT/HCPCS: 36415; 71045; 74176; 80048; 80053; 82962; 83605; 83690; 83735; 84132; 84484; 85007; 85025; 85610; 86850; 86900; 86901; 86920; 87324; 87804; 87804-59; 93005; 96374; 96375; 97161-GP; 97166-GO; 97530-GP; 99285; 99285-25; J1442; J1956; J2405; J3010; J3370; J7030; J7040; J8597; P9016; P9035; Q0163